=== PATIENT | female | born 1935 | race Caucasian/White ===

== ENCOUNTER 2018-01-13 15:56 | Inpatient (IN) | payer OTHER, MEDICARE ==
--- NOTE | 2018-01-13 16:05 | PDOC ---
History of Present Illness - General Stated Complaint: WEAKNESS DIZZINESS Time Seen by Provider: 01/13/18 15:58 - History of Present Illness Initial Comments: 01/13/18 16:28 The patient is an 82 year old female with a history of HTN, COPD, Lung CA who presents for evaluation of generalized weakness and fatigue. The patient was sent to the ED for evaluation from her PCP's office Dr. Parra. They report that the patient had a CT scan that demonstrated stable infiltrates 1 week ago and since that procedure, the patient has been complaining of generalized weakness and fatigue. She reports that she is normally able to ambulate without difficulty, but has required more assistance throughout the week due to worsening fatigue. She otherwise denies fevers, chills, SOB, chest pain, nausea , vomiting, abdominal pain, or changes with urination or bowel movements. Past History - Past Medical History Allergies/Adverse Reactions: Allergies Allergy/AdvReac Type Severity Reaction Status Date / Time No Known Drug Allergies Allergy Verified 01/13/18 16:13 SEASONAL Allergy Uncoded 01/13/18 16:13 Home Medications: Ambulatory Orders Aspirin [ASA -] 81 mg PO DAILY #0 tab.chew 07/18/13 Metoprolol Succinate [Toprol XL -] 12.5 mg PO BID #0 tab.sr.24h 07/18/13 Multivitamin [Multivitamins] 1 each PO DAILY #0 capsule 07/18/13 Loratadine/Pseudoephedrine Sul [Claritin-D 24 Hour Tablet] 1 tab PO DAILY Ranitidine HCl [Zantac] 150 mg PO BID #0 05/13/14 Alprazolam 0.5 mg PO DAILY PRN 01/13/18 Anemia: No Asthma: No Cancer: Yes (lung ca 2006) Cardiac Disorders: No CVA: No COPD: No CHF: No Dementia: No Diabetes: No GI Disorders: Yes Disorders: No HTN: Yes Hypercholesterolemia: No Liver Disease: Yes ("ENLARGED LIVER") Seizures: Yes (QUESTIONABLE X 1) Thyroid Disease: No - Surgical History Abdominal Surgery: No Appendectomy: No Cardiac Surgery: No Cholecystectomy: No Lung Surgery: Yes (LEFT LUNG X 2 08/16) Neurologic Surgery: No Orthopedic Surgery: No - Suicide/Smoking/Psychosocial Hx Smoking Status: Yes Smoking History: Former smoker Have you smoked in the past 12 months: No Number of Cigarettes Smoked Daily: 0 Hx Alcohol Use: No Drug/Substance Use Hx: No Substance Use Type: None Hx Substance Use Treatment: No Review of Systems - Review of Systems Comments:: 01/13/18 16:31 Constitutional: Fatigue, Generalized Weakness. No fevers, chills, HEENT: No Rhinorrhea, nasal congestion, visual changes Cardiovascular: Lightheadedness. No chest pain, syncope, palpitations Respiratory: No Cough, SOB, Hemoptysis, Gastrointestinal: No Abdominal pain, Nausea, Vomiting, Constipation, Diarrhea, Melena Genitourinary: No Dysuria, Frequency, Urgency, Hesitancy, Hematuria, Flank pain Musculoskeletal: No Myalgia, arthralgia Skin: No rashes, itching, bruising, pallor Neurologic: No Headache, Dizziness, Numbness, Weakness, or Tingling Psychiatric: No Hallucinations. No SI or HI *Physical Exam - Physical Exam Comments: 01/13/18 16:32 General Appearance: Nourished. No Apparent Distress HEENT: EOMI, KAREN. Dry mucus membranes. No Pharyngeal Erythema, Tonsillar Exudate, Tonsillar Erythema Neck: No Cervical Lymphadenopathy Respiratory/Chest: Lungs Clear, Normal Breath Sounds. No Crackles, Rales, Rhonchi, Wheezing Cardiovascular: Regular Rhythm, Regular Rate. 3/6 systolic murmur noted on exam. No Gallops, Rubs Gastrointestinal/Abdominal: Normal Bowel Sounds, Soft. No Guarding, Rebound, Tenderness Musculoskeletal: No CVA Tenderness Extremity: Normal Capillary Refill Integumentary: Pallor noted. Dry, Warm Neurologic: investment banking associate II-XII NML intact, Fully Oriented, Alert, Normal Mood/Affect, Normal Response, Heart Score/ECG Review #1 ECG reviewed & interpreted by me at: 16:49 (RBBB and Left anterior fascicular block) General ECG Interpretation: Sinus Rhythm, Normal Rate, Normal Intervals, No acute ischemic changes Compared to previous ECG there are: No significant change (05/10/14) ED Treatment Course - LABORATORY CBC & Chemistry Diagram: 01/13/18 16:30 01/13/18 16:30 Medical Decision Making - Medical Decision Making 01/13/18 16:33 The patient is an 82 year old female with a history of HTN, COPD, Lung CA who presents for evaluation of generalized weakness and fatigue. Differential includes but is not limited to: CRUZ, Anemia, Dehydration, infectious, metabolic derangement. Given the patient's history, we will obtain a cbc, cmp, troponin, ua, ekg to evaluate for possible etiologies. We discussed the case with Dr. Parra who was concerned about the patient's new onset weakness given that she is usually fairly active. Given her clinical appearance, she will likely require observation admission. We will continue to monitor and reassess. 01/13/18 18:26 cbc demonstrates an elevated wbc to 15.2. CMP demonstrates a sodium of 121, creatinine of 1.5, glucose of 238. Given the patient's lab work, it is possible the patient's symptoms are due to a CRUZ with hyponatremia and electrolyte imbalance. She will require admission for further management of her symptoms. 01/13/18 18:39 We discussed the case with the hospitalist team who accepted the patient for admission. *DC/Admit/Observation/Transfer Diagnosis at time of Disposition: CRUZ (acute kidney injury), Hyponatremia - Discharge Dispostion Condition at time of disposition: Stable Admit: Yes - Referrals Referrals: Bernabe Parra MD [Primary Care Provider] - - Patient Instructions - Post Discharge Activity
--- NOTE | 2018-01-13 16:33 | PDOC ---
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
[2018-01-13] MEDS ORDERED: SODIUM CHLORIDE 500 ML IV STA (16:51)
[2018-01-13 17:14] LABS: BASO % 0.2 % (0-2.0); EOS % 3.4 % (0-4.5); HEMATOCRIT 31.3 % (32.4-45.2); HEMOGLOBIN 11.3 GM/dL (10.7-15.3); LYMPH % 1.5 % (8-40); MCH 32.6 pg (25.7-33.7); MEAN CELL VOLUME 90.6 fl (80-96); MEAN PLT VOLUME 8.7 fl (7.5-11.1); MONO % 4.1 % (3.8-10.2); NEUT % 90.8 % (42.8-82.8); PLATELET COUNT 128 K/MM3 (134-434); RBC 3.45 M/mm3 (3.60-5.2); RDW 15.2 % (11.6-15.6); WHITE BLOOD COUNT 15.8 K/mm3 (4.0-10.0)
[2018-01-13 17:31] LABS: ALBUMIN 2.5 g/dl (3.4-5.0); ANION GAP 12 (8-16); BLOOD UREA NITROGEN 43 mg/dL (7-18); CALCIUM 7.8 mg/dL (8.5-10.1); CHLORIDE 85 mmol/L (98-107); CO2 24 mmol/L (21-32); GLUCOSE,RANDOM 278 mg/dL (74-106); POTASSIUM 4.2 mmol/L (3.5-5.1)
[2018-01-13 17:39] LABS: ALK PHOS 165 U/L (45-117); BILIRUBIN,TOTAL 0.8 mg/dL (0.2-1.0); CREATININE 1.5 mg/dL (0.55-1.02); SGOT/AST 29 U/L (15-37); SGPT/ALT 43 U/L (12-78); TOT PROT 5.6 g/dl (6.4-8.2)
[2018-01-13 18:03] LABS: SODIUM 121 mmol/L (136-145)
--- NOTE | 2018-01-13 22:06 | HP ---
Admitting History and Physical - Primary Care Physician PCP: Bernabe Parra - Admission Chief Complaint: Generalized Weakness, Fatigue History of Present Illness: This is a 82 y/o woman from home. Who presents to the ED from her PCP's office for generalized weakness, fatigue, chills, unable to ambulate x several days. Patient reports limited PO intake since having a CT of her chest. Patient states "I was told to drink lots of fluids after the test, but was unable" Patient denies fever, cough, SOB, CP, AP, N/V/D, dysuria. History Source: Patient, Medical Record Limitations to Obtaining History: No Limitations - Past Medical History Cardiovascular: Yes: CAD, HTN Pulmonary: Yes: Cancer (s/p resection), COPD Gastrointestinal: Yes: GERD - Past Surgical History Past Surgical History: Yes: Thoracotomy - Smoking History Smoking history: Former smoker Have you smoked in the past 12 months: No Aproximately how many cigarettes per day: 0 - Alcohol/Substance Use Hx Alcohol Use: No History of Substance Use: reports: None - Social History History of Recent Travel: No Home Medications - Allergies Allergies/Adverse Reactions: Allergies Allergy/AdvReac Type Severity Reaction Status Date / Time No Known Drug Allergies Allergy Verified 01/13/18 16:13 SEASONAL Allergy Uncoded 01/13/18 16:13 - Home Medications Home Medications: Ambulatory Orders Aspirin [ASA -] 81 mg PO DAILY #0 tab.chew 07/18/13 Metoprolol Succinate [Toprol XL -] 12.5 mg PO BID #0 tab.sr.24h 07/18/13 Multivitamin [Multivitamins] 1 each PO DAILY #0 capsule 07/18/13 Loratadine/Pseudoephedrine Sul [Claritin-D 24 Hour Tablet] 1 tab PO DAILY Ranitidine HCl [Zantac] 150 mg PO BID #0 05/13/14 Alprazolam 0.5 mg PO DAILY PRN 01/13/18 Family Disease History - Family Disease History Family History: Unable to Obtain Review of Systems - Review of Systems Constitutional: reports: Chills, Lethargy, Loss of Appetite, Malaise, Weakness Eyes: reports: No Symptoms HENT: reports: No Symptoms Neck: reports: No Symptoms Cardiovascular: reports: No Symptoms Respiratory: reports: No Symptoms Gastrointestinal: reports: No Symptoms Genitourinary: reports: No Symptoms Breasts: reports: No Symptoms Reported Musculoskeletal: reports: Muscle Weakness Integumentary: reports: No Symptoms Neurological: reports: Unsteady Gait, Weakness Endocrine: reports: No Symptoms Hematology/Lymphatic: reports: No Symptoms Psychiatric: reports: No Symptoms Physical Examination Vital Signs: Vital Signs Temperature 98.8 F 01/13/18 16:07 Pulse Rate 92 H 01/13/18 19:13 Respiratory Rate 21 01/13/18 19:13 Blood Pressure 120/46 01/13/18 19:13 O2 Sat by Pulse Oximetry (%) 94 L 01/13/18 19:13 Constitutional: Yes: No Distress, Calm Eyes: Yes: WNL, Conjunctiva Clear, EOM Intact, PERRL HENT: Yes: WNL, Atraumatic, Normocephalic, Other (Dry Mucous Membrane) Neck: Yes: WNL, Supple, Trachea Midline Cardiovascular: Yes: WNL, Regular Rate and Rhythm, Murmur (systolic) Respiratory: Yes: Diminished, On Nasal O2 Gastrointestinal: Yes: Normal Bowel Sounds, Soft ...Rectal Exam: Yes: Deferred Renal/: Yes: WNL Breast(s): Yes: WNL, Left, Right Musculoskeletal: Yes: WNL Extremities: Yes: WNL Edema: No Peripheral Pulses WNL: Yes Integumentary: Yes: Bruising (peripheral blood trays upper) Neurological: Yes: WNL, Alert, Oriented, Cran Nerves II-XII Intact ...Motor Strength: WNL Psychiatric: Yes: WNL, Alert, Oriented Labs: CBC, BMP 01/13/18 16:30 01/13/18 16:30 Laboratory Results - last 24 hr 01/13/18 01/13/18 01/13/18 16:30 16:30 22:15 WBC 15.8 H D RBC 3.45 L Hgb 11.3 Hct 31.3 L MCV 90.6 MCH 32.6 MCHC 36.0 RDW 15.2 Plt Count 128 L D MPV 8.7 Neutrophils % 90.8 H D Lymphocytes % 1.5 L D Monocytes % 4.1 Eosinophils % 3.4 Basophils % 0.2 Platelet Estimate Slt decrease Platelet Comment No clotting detected Sodium 121 L* 124 L* Potassium 4.2 3.8 Chloride 85 L 86 L Carbon Dioxide 24 25 Anion Gap 12 13 BUN 43 H 40 H Creatinine 1.5 H 1.4 H Creat Clearance w eGFR 33.41 Random Glucose 278 H 225 H Calcium 7.8 L 7.9 L Total Bilirubin 0.8 D AST 29 ALT 43 Alkaline Phosphatase 165 H Creatine Kinase 50 Troponin I < 0.02 Total Protein 5.6 L Albumin 2.5 L Intake & Output 01/11/18 01/12/18 01/13/18 01/14/18 23:59 23:59 23:59 23:59 Intake Total 336 Balance 336 Weight 72.603 kg Imaging - Results EKG: Pending Problem List - Problems (1) Hyponatremia Assessment/Plan: - hypovolemic/hypotonic hyponatremia - Likely secondary to severe dehydration vs SIADH - NS bolus given in ED - Na Deficit 279 - Sodium correction goal of 6-8meq/24hrs - IVF per PCP recommendation, consider change to D5W if Na increases to rapidly - Monitor BMP closely Q4H - UA-pending - Urine Osmo, Serum Osmo, Urine electrolytes - Fall Precautions Code(s): E87.1 - HYPO-OSMOLALITY AND HYPONATREMIA (2) CRUZ (acute kidney injury) Assessment/Plan: - Likely secondary to dehydration vs IV contrast media - Continue gentle IVF - Monitor BMP Code(s): N17.9 - ACUTE KIDNEY FAILURE, UNSPECIFIED (3) Generalized weakness Assessment/Plan: - Likely secondary to dehydration - Continue IVF - Monitor BMP - Monitor vitals - Fall Precautions Code(s): R53.1 - WEAKNESS (4) HTN (hypertension) Assessment/Plan: - Stable - Monitor BP - Continue home med with parameters Code(s): I10 - ESSENTIAL (PRIMARY) HYPERTENSION Qualifiers: Hypertension type: essential hypertension Qualified Code(s): I10 - Essential (primary) hypertension (5) Lung cancer Assessment/Plan: - s/p left lobe resection - Last CT without changes - Appreciate Oncology Consult Code(s): C34.90 - MALIGNANT NEOPLASM OF UNSP PART OF UNSP BRONCHUS OR LUNG Qualifiers: Laterality: right Lung location: upper lobe of lung Qualified Code(s): C34.11 - Malignant neoplasm of upper lobe, right bronchus or lung (6) CAD (coronary artery disease) Assessment/Plan: - Continue Asa, Metoprolol with parameters - EKG- pending Code(s): I25.10 - ATHSCL HEART DISEASE OF [place] CORONARY ARTERY W/O ANG PCTRS Qualifiers: Coronary Disease-Associated Artery/Lesion type: [place] artery [place] vs. transplanted heart: [place] heart Associated angina: without angina Qualified Code(s): I25.10 - Atherosclerotic heart disease of [place] coronary artery without angina pectoris (7) COPD (chronic obstructive pulmonary disease) Assessment/Plan: - Stable - Continue home med Code(s): J44.9 - CHRONIC OBSTRUCTIVE PULMONARY DISEASE, UNSPECIFIED Qualifiers: COPD type: unspecified COPD Qualified Code(s): J44.9 - Chronic obstructive pulmonary disease, unspecified (8) GERD (gastroesophageal reflux disease) Assessment/Plan: - Chronic - Continue Zantac Code(s): K21.9 - GASTRO-ESOPHAGEAL REFLUX DISEASE WITHOUT ESOPHAGITIS Qualifiers: Esophagitis presence: without esophagitis Qualified Code(s): K21.9 - Gastro -esophageal reflux disease without esophagitis (9) DVT prophylaxis Assessment/Plan: - OOB - SCDs - Heparin SQ Code(s): [id number] - Assessment/Plan This is a 82 y/o HTN, COPD, Lung Ca (no Chemo, RT). Admitted for Hyponatremia, Dehydration, Generalized Weakness. Plan: 1. Hyponatremia 2. Dehydration 3. Generalized Weakness 4. Leukocytosis 5. CRUZ 6. COPD 7. Lung Ca 8. Hypertension 9. CAD F/E/N - NS@42ml/hr - Repleting Na, monitor level - Low Na Diet Code Status: Full Code Dispo: Requires Inpatient Care Visit type - Emergency Visit Emergency Visit: Yes ED Registration Date: 01/13/18 Care time: The patient presented to the Emergency Department on the above date and was hospitalized for further evaluation of their emergent condition. - New Patient This patient is new to me today: Yes Date on this admission: 01/13/18 - Critical Care Critical Care patient: No Hospitalist Screening - Colonoscopy Questionnaire Colonoscopy Questionnaire: Colonoscopy Questionnaire - Patient: 50 - 75 years old and never had a screening colonoscopy: Unknown History of colon or rectal polyps, or CA: Unknown History of IBD, Crohn's disease or UC: Unknown History of abdominal radiation therapy as a child: Unknown - Relative: 1 with colon or rectal CA, or polyps at age 60 or younger: Unknown Colon or rectal CA diagnosed at age 45 or younger: Unknown Multiple relatives with colon or rectal CA: Unknown - Outcome: Screening Result: Negative Screen
[2018-01-13 22:09] LABS: PLATELET ESTIMATE SLT DECREASE
[2018-01-13] MEDS ORDERED: SODIUM CHLORIDE 1,000 ML IV SCH (22:15)
[2018-01-13] MEDS: HEPARIN NA (PORCINE) 5,000 UNITS/ML 1ML VIAL SQ SCH (22:55)
[2018-01-13 23:03] LABS: ANION GAP 13 (8-16); BLOOD UREA NITROGEN 40 mg/dL (7-18); CALCIUM 7.9 mg/dL (8.5-10.1); CHLORIDE 86 mmol/L (98-107); CO2 25 mmol/L (21-32); CREATININE 1.4 mg/dL (0.55-1.02); GLUCOSE,RANDOM 225 mg/dL (74-106); POTASSIUM 3.8 mmol/L (3.5-5.1)
[2018-01-13 23:10] VITALS: BMI 27.4
[2018-01-13 23:10] LABS: SODIUM 124 mmol/L (136-145)
[2018-01-14 08:11] LABS: HEMATOCRIT 28.5 % (32.4-45.2); HEMOGLOBIN 10.1 GM/dL (10.7-15.3); MCH 32.1 pg (25.7-33.7); MCHC 35.3 g/dl (32.0-36.0); MEAN PLT VOLUME 8.6 fl (7.5-11.1); PLATELET COUNT 114 K/MM3 (134-434); RBC 3.14 M/mm3 (3.60-5.2); RDW 15.4 % (11.6-15.6); WHITE BLOOD COUNT 14.6 K/mm3 (4.0-10.0)
[2018-01-14 08:29] LABS: ANION GAP 16 (8-16); BLOOD UREA NITROGEN 41 mg/dL (7-18); CALCIUM 7.5 mg/dL (8.5-10.1); CHLORIDE 88 mmol/L (98-107); CO2 21 mmol/L (21-32); CREATININE 1.3 mg/dL (0.55-1.02); GLUCOSE,RANDOM 219 mg/dL (74-106); PHOSPHOROUS 1.8 mg/dL (2.5-4.9); SODIUM 125 mmol/L (136-145)
[2018-01-14 08:32] LABS: MAGNESIUM 2.8 mg/dL (1.8-2.4); POTASSIUM 3.6 mmol/L (3.5-5.1)
[2018-01-14 08:43] LABS: URINE APPEARANCE TURBID; URINE BILIRUBIN NEGATIVE (NEGATIVE); URINE BLOOD 1+ (NEGATIVE); URINE COLOR YELLOW; URINE GLUCOSE (UA) NEGATIVE (NEGATIVE); URINE KETONE TRACE (NEGATIVE); URINE NITRITE NEGATIVE (NEGATIVE); URINE UROBILINOGEN NEGATIVE mg/dL (0.2-1.0)
[2018-01-14 08:55] LABS: URINE LEUK ESTERASE 3+ (NEGATIVE); URINE PROTEIN 2+ (NEGATIVE)
[2018-01-14 08:56] LABS: URINE BACTERIA MANY /hpf (NONE SEEN)
[2018-01-14 09:47] LABS: PLATELET ESTIMATE DECREASED; TOXIC GRANULATION 3+
--- NOTE | 2018-01-14 09:58 | PN ---
Progress Note, Physician Chief Complaint: Pt lying in bed in no acute distress. Reports she is feeling a lot better since coming in. still feels weak. Denies any chest discomfort, sob, n/v/d, or fever/ chills - Current Medication List Current Medications: Active Medications Aspirin (Asa -) 81 mg PO DAILY [facility] Heparin Sodium (Porcine) (Heparin -) 5,000 unit SQ BID [facility] Last Admin: 01/13/18 22:55 Dose: 5,000 unit Ceftriaxone Sodium 1 gm/ (Dextrose) 50 mls @ 100 mls/hr IVPB DAILY [facility] Sodium Chloride (Normal Saline -) 1,000 mls @ 100 mls/hr IV ASDIR [facility] Non-Formulary Medication (Ranitidine Hcl [Zantac]) 150 mg PO BID [facility] - Objective Vital Signs: Vital Signs Temperature 97.9 F 01/14/18 08:00 Pulse Rate 99 H 01/14/18 08:00 Respiratory Rate 18 01/14/18 08:00 Blood Pressure 121/60 01/14/18 08:00 O2 Sat by Pulse Oximetry (%) 96 01/14/18 09:00 Constitutional: Yes: Well Nourished, No Distress Cardiovascular: Yes: WNL, Regular Rate and Rhythm, Murmur. No: Bruit, Gallop, Rub Respiratory: Yes: WNL, Regular, CTA Bilaterally. No: Rales, Rhonchi, SOB Gastrointestinal: Yes: WNL, Normal Bowel Sounds, Soft. No: Distention, Tenderness Genitourinary: Yes: WNL Extremities: Yes: WNL Edema: No Neurological: Yes: WNL, Alert, Oriented Psychiatric: Yes: WNL, Alert, Oriented Labs: CBC, BMP 01/14/18 06:45 01/14/18 06:45 - ....Imaging EKG: Report Reviewed Problem List - Problems (1) Hyponatremia Assessment/Plan: hypovolemic/hypotonic hyponatremia slightly improved with ivf urine na/cl low secondary to intravasc volume depletion NS increased to 100mL/hr chest xray reviewed, no sig congestive findings will monitor bmp closely Nephrology consulter per onc Code(s): E87.1 - HYPO-OSMOLALITY AND HYPONATREMIA (2) UTI (urinary tract infection) Assessment/Plan: UA+, +leukocytosis UC pending ceftriaxone started, day 1 will monitor Code(s): N39.0 - URINARY TRACT INFECTION, SITE NOT SPECIFIED Qualifiers: Hematuria presence: without hematuria (3) Leukocytosis Assessment/Plan: secondary to UTI as above Code(s): D72.829 - ELEVATED WHITE BLOOD CELL COUNT, UNSPECIFIED Qualifiers: Leukocytosis type: unspecified Qualified Code(s): D72.829 - Elevated white blood cell count, unspecified (4) CRUZ (acute kidney injury) Assessment/Plan: secondary to prerenal improving with ivf will monitor Code(s): N17.9 - ACUTE KIDNEY FAILURE, UNSPECIFIED (5) Generalized weakness Assessment/Plan: improving, secondary to underlying condition treat and monitor for improvement PT Code(s): R53.1 - WEAKNESS (6) HTN (hypertension) Assessment/Plan: controlled allow permissive htn in the setting of hypovolemia metoprolol per parameters Code(s): I10 - ESSENTIAL (PRIMARY) HYPERTENSION Qualifiers: Hypertension type: essential hypertension Qualified Code(s): I10 - Essential (primary) hypertension (7) Lung cancer Assessment/Plan: s/p left lobe resection last CT without changes followed by outpt Onc consult appreciated Code(s): C34.90 - MALIGNANT NEOPLASM OF UNSP PART OF UNSP BRONCHUS OR LUNG Qualifiers: Laterality: right Lung location: upper lobe of lung Qualified Code(s): C34.11 - Malignant neoplasm of upper lobe, right bronchus or lung (8) DVT prophylaxis Assessment/Plan: Heparin SQ SCDs Code(s): [id number] - (9) CAD (coronary artery disease) Assessment/Plan: stable ekg continue aspirin, metoprolol followed by as outpatient Code(s): I25.10 - ATHSCL HEART DISEASE OF [place] CORONARY ARTERY W/O ANG PCTRS Qualifiers: Coronary Disease-Associated Artery/Lesion type: [place] artery [place] vs. transplanted heart: [place] heart Associated angina: without angina Qualified Code(s): I25.10 - Atherosclerotic heart disease of [place] coronary artery without angina pectoris (10) GERD (gastroesophageal reflux disease) Assessment/Plan: chronic continue zantac Code(s): K21.9 - GASTRO-ESOPHAGEAL REFLUX DISEASE WITHOUT ESOPHAGITIS Qualifiers: Esophagitis presence: without esophagitis Qualified Code(s): K21.9 - Gastro -esophageal reflux disease without esophagitis (11) COPD (chronic obstructive pulmonary disease) Assessment/Plan: stable Code(s): J44.9 - CHRONIC OBSTRUCTIVE PULMONARY DISEASE, UNSPECIFIED Qualifiers: COPD type: unspecified COPD Qualified Code(s): J44.9 - Chronic obstructive pulmonary disease, unspecified (12) History of alcohol abuse Assessment/Plan: stable Code(s): Z87.898 - PERSONAL HISTORY OF OTHER SPECIFIED CONDITIONS (13) Hypokalemia Assessment/Plan: k3.2 potassium 10meq ivx 3 runs monitor bmp Code(s): E87.6 - HYPOKALEMIA
[2018-01-14] MEDS: HEPARIN NA (PORCINE) 5,000 UNITS/ML 1ML VIAL SQ SCH ×2 (09:59→21:11)
[2018-01-14] MEDS ORDERED: SODIUM CHLORIDE 1,000 ML IV SCH ×2 (10:00→11:52)
[2018-01-14] MEDS ORDERED: CEFTRIAXONE 1 G/50 ML PREMIX 50 ML IVPB SCH (10:00)
[2018-01-14] MEDS ORDERED: PATIENT'S OWN MEDICATION (NON-FORMULARY) (Ranitidine Hcl [Zantac] 150 MG) PO SCH (10:00)
[2018-01-14] MEDS: ASPIRIN 81 MG CHEWABLE TABLETS PO SCH (10:19)
[2018-01-14] MEDS: RANITIDINE HCL 150 MG TABLET (FP) PO SCH ×2 (10:26→21:11)
--- NOTE | 2018-01-14 10:51 | EKG ---
Test Reason : Blood Pressure : / mmHG Vent. Rate : 096 BPM Atrial Rate : 096 BPM P-R Int : 164 ms QRS Dur : 132 ms QT Int : 364 ms P-R-T Axes : 048 -57 022 degrees QTc Int : 459 ms NORMAL SINUS RHYTHM RIGHT BUNDLE BRANCH BLOCK LEFT ANTERIOR FASCICULAR BLOCK BIFASCICULAR BLOCK SEPTAL INFARCT , AGE UNDETERMINED ABNORMAL ECG WHEN COMPARED WITH ECG OF 10-MAY-2014 09:25, SEPTAL INFARCT IS NOW PRESENT Confirmed by GREGORY HENDERSON, CHINYERE ([id number]) on 01/14/2018 10:50:33 AM Referred By: Confirmed By:CHINYERE JENKINS MD
[2018-01-14 11:08] LABS: ANION GAP 13 (8-16); BLOOD UREA NITROGEN 43 mg/dL (7-18); CALCIUM 7.5 mg/dL (8.5-10.1); CHLORIDE 91 mmol/L (98-107); CO2 21 mmol/L (21-32); CREATININE 1.3 mg/dL (0.55-1.02); GLUCOSE,RANDOM 204 mg/dL (74-106); SODIUM 125 mmol/L (136-145)
[2018-01-14 11:19] LABS: POTASSIUM 3.9 mmol/L (3.5-5.1)
--- NOTE | 2018-01-14 11:37 | PN ---
Progress Note (short form) - Note Progress Note: Oncology Note: office notes reviewed, follows-up with for lung cancer, and being monitored with imaging plan was to repeat CT chest. 82 year old female with a history of HTN, COPD, Lung CA who presents for evaluation of generalized weakness and fatigue. The patient was sent to the ED for evaluation from her PCP's office Dr. Parra. They report that the patient had a CT scan that demonstrated stable infiltrates 1 week ago and since that procedure, the patient has been complaining of generalized weakness and fatigue. She reports that she is normally able to ambulate without difficulty, but has required more assistance throughout the week due to worsening fatigue. She otherwise denies fevers, chills, SOB, chest pain, nausea, vomiting, abdominal pain, or changes with urination or bowel movements. Pt seen , chart reviewed. O/E: General : NAD, appears fatigues HEENT: NCAT Cor: +Murmur Lungs: Anterior auscultation clear Abd: soft NT ND Extremities: No CCE. Last Vital Signs Temp Pulse Resp BP Pulse Ox 97.9 F 99 H 18 121/60 96 01/14/18 08:00 01/14/18 08:00 01/14/18 08:00 01/14/18 08:00 01/14/18 09:00 CBC, BMP 01/14/18 06:45 01/14/18 10:15 Current Medications Generic Name Dose Route Start Last Admin Trade Name Freq PRN Reason Stop Dose Admin Aspirin 81 mg 01/14/18 10:00 01/14/18 10:19 Asa - PO 81 mg DAILY [facility] Administration Heparin Sodium (Porcine) 5,000 unit 01/13/18 22:00 01/14/18 09:59 Heparin - SQ 5,000 unit BID [facility]ENDA Administration CEFTRIAXONE 1 G/50 ML PREMIX 50 mls @ 100 mls/hr 01/14/18 10:00 01/14/18 10: 19 Ceftriaxone 1 Gm-D5w Bag IVPB 100 mls/hr DAILY [facility] Administration Sodium Chloride 1,000 mls @ 100 mls/hr 01/14/18 10:00 01/14/18 10:20 Normal Saline - IV Not Given ASDIR [facility] Metoprolol Succinate 12.5 mg 01/14/18 22:00 Toprol Xl - PO BID [facility] Non-Formulary Medication 1 each 01/15/18 10:00 Multivitamin [Multivitamins] PO DAILY [facility] Ranitidine HCl 150 mg 01/14/18 10:45 01/14/18 10:26 Zantac - PO 150 mg BID [facility]ENDA Administration Lung Ca: stable HypoNa/CRUZ: renal consult. Anemia/Mild thrombocytopenia continue to monitor .
--- NOTE | 2018-01-14 12:32 | CON.CARD ---
Consult Consult Specialty:: Cardiology Referred by:: Galen Parra MD Reason for Consultation:: CAD - History of Present Illness Chief Complaint: Failre to thrive History of Present Illness: This is a 82 y/o woman h/o right lung adenocarcinoma, COPD, CAD, HTN who presents to the ED from her PCP's office for generalized weakness, fatigue, chills, unable to ambulate x several days. Patient reports limited PO intake since having a CT of her chest. She denies chest pain, dyspnea, near or true syncope, palpitations, orthopnea, PND or LE edema. Feels improved with IVF and abx. - History Source History Provided By: Patient Limitations to Obtaining History: No Limitations - Past Medical History Cardio/Vascular: Yes: CAD, HTN Pulmonary: Yes: Cancer (s/p resection), COPD Gastrointestinal: Yes: GERD - Past Surgical History Past Surgical History: Yes: Thoracotomy - Alcohol/Substance Use Hx Alcohol Use: No History of Substance Use: reports: None - Smoking History Smoking history: Former smoker Have you smoked in the past 12 months: No Aproximately how many cigarettes per day: 0 - Social History History of Recent Travel: No Home Medications - Allergies Allergies/Adverse Reactions: Allergies Allergy/AdvReac Type Severity Reaction Status Date / Time No Known Drug Allergies Allergy Verified 01/13/18 16:13 SEASONAL Allergy Uncoded 01/13/18 16:13 - Home Medications Home Medications: Ambulatory Orders Aspirin [ASA -] 81 mg PO DAILY #0 tab.chew 07/18/13 Metoprolol Succinate [Toprol XL -] 12.5 mg PO BID #0 tab.sr.24h 07/18/13 Multivitamin [Multivitamins] 1 each PO DAILY #0 capsule 07/18/13 Loratadine/Pseudoephedrine Sul [Claritin-D 24 Hour Tablet] 1 tab PO DAILY Ranitidine HCl [Zantac] 150 mg PO BID #0 05/13/14 Alprazolam 0.5 mg PO DAILY PRN 01/13/18 Review of Systems - Review of Systems Constitutional: reports: Lethargy, Loss of Appetite Vital Signs: Vital Signs Temperature 97.9 F 01/14/18 08:00 Pulse Rate 99 H 01/14/18 08:00 Respiratory Rate 18 01/14/18 08:00 Blood Pressure 121/60 01/14/18 08:00 O2 Sat by Pulse Oximetry (%) 96 01/14/18 09:00 Constitutional: Yes: No Distress, Calm Neck: Yes: Supple Respiratory: Yes: Regular, Diminished, On Nasal O2 Gastrointestinal: Yes: Normal Bowel Sounds, Soft Cardiovascular: Yes: Regular Rate and Rhythm JVD: No Carotid Bruit: No Heart Sounds: Yes: S1, S2 Murmur: Yes: Systolic Murmur, Grade 1 Edema: No - Other Data Labs, Other Data: CBC, BMP 01/14/18 06:45 01/14/18 10:15 Troponin, BNP 01/13/18 16:30 Troponin I < 0.02 Troponin, BNP 01/13/18 16:30 Troponin I < 0.02 NSR @ 96 RBBB Ejection Fraction %: LVEF > or = 40 % Problem List - Problems (1) CRUZ (acute kidney injury) Code(s): N17.9 - ACUTE KIDNEY FAILURE, UNSPECIFIED (2) CAD (coronary artery disease) Code(s): I25.10 - ATHSCL HEART DISEASE OF [place] CORONARY ARTERY W/O ANG PCTRS Qualifiers: Coronary Disease-Associated Artery/Lesion type: [place] artery [place] vs. transplanted heart: [place] heart Associated angina: without angina Qualified Code(s): I25.10 - Atherosclerotic heart disease of [place] coronary artery without angina pectoris (3) COPD (chronic obstructive pulmonary disease) Code(s): J44.9 - CHRONIC OBSTRUCTIVE PULMONARY DISEASE, UNSPECIFIED Qualifiers: COPD type: unspecified COPD Qualified Code(s): J44.9 - Chronic obstructive pulmonary disease, unspecified (4) DVT prophylaxis Code(s): [id number] - (5) GERD (gastroesophageal reflux disease) Code(s): K21.9 - GASTRO-ESOPHAGEAL REFLUX DISEASE WITHOUT ESOPHAGITIS Qualifiers: Esophagitis presence: without esophagitis Qualified Code(s): K21.9 - Gastro -esophageal reflux disease without esophagitis (6) Generalized weakness Code(s): R53.1 - WEAKNESS (7) HTN (hypertension) Code(s): I10 - ESSENTIAL (PRIMARY) HYPERTENSION Qualifiers: Hypertension type: essential hypertension Qualified Code(s): I10 - Essential (primary) hypertension (8) Hyponatremia Code(s): E87.1 - HYPO-OSMOLALITY AND HYPONATREMIA (9) Leukocytosis Code(s): D72.829 - ELEVATED WHITE BLOOD CELL COUNT, UNSPECIFIED Qualifiers: Leukocytosis type: unspecified Qualified Code(s): D72.829 - Elevated white blood cell count, unspecified (10) Lung cancer Code(s): C34.90 - MALIGNANT NEOPLASM OF UNSP PART OF UNSP BRONCHUS OR LUNG Qualifiers: Laterality: right Lung location: upper lobe of lung Qualified Code(s): C34.11 - Malignant neoplasm of upper lobe, right bronchus or lung (11) UTI (urinary tract infection) Code(s): N39.0 - URINARY TRACT INFECTION, SITE NOT SPECIFIED Qualifiers: Hematuria presence: without hematuria Assessment/Plan 1. Lethargy referable to hyponatremia and acute on CKD 2. UTI 3. Right lung adenocarcinoma s/p resection 4. COPD 5. CAD angina pectoris 6. Systolic murmur consistent with MR disease 7. HTN 8. Thrombocytopenia Plan: 1. Continue Toprol XL 12.5 bid, ASA 81 qd 2. IVF, empiric abx, monitor Na and renal recovery 3. F/u with Dr. Owens and Candelario as outpatient 4. DVT and GI prophylaxis, will obtain outpatient records tomorrow 5. Thank you for consultative opportunity
--- NOTE | 2018-01-14 14:32 | CONSULT ---
Consult Consult Specialty:: Nephrology Reason for Consultation:: hyponatremia - History of Present Illness Chief Complaint: weakness and fatigue History of Present Illness: Pt is an 82 year old female with pmhx of HTN, lung cancer, COPD, HTN and CAD who presents to the ER with weakness and fatigue. She says that she has been so weak that she can not walk. She was found to be hyponatremic and I was called to evaluate her. She says that she has not been eating at all and has only been drinking water. She responded to saline and showed an improvement in her sodium. She is awake and says that she feels she can try to eat today. She denies shortness of breath. She denies lower ext edema. She denies nsaid use. She denies history of CKD. - History Source History Provided By: Patient - Past Medical History Cardio/Vascular: Yes: CAD, HTN Pulmonary: Yes: Cancer (s/p resection), COPD Gastrointestinal: Yes: GERD Heme/Onc: Yes: Other (lung cancer) - Past Surgical History Past Surgical History: Yes: Thoracotomy - Alcohol/Substance Use Hx Alcohol Use: No History of Substance Use: reports: None - Smoking History Smoking history: Former smoker Have you smoked in the past 12 months: No Aproximately how many cigarettes per day: 0 - Social History History of Recent Travel: No Home Medications - Allergies Allergies/Adverse Reactions: Allergies Allergy/AdvReac Type Severity Reaction Status Date / Time No Known Drug Allergies Allergy Verified 01/13/18 16:13 SEASONAL Allergy Uncoded 01/13/18 16:13 - Home Medications Home Medications: Ambulatory Orders Aspirin [ASA -] 81 mg PO DAILY #0 tab.chew 07/18/13 Metoprolol Succinate [Toprol XL -] 12.5 mg PO BID #0 tab.sr.24h 07/18/13 Multivitamin [Multivitamins] 1 each PO DAILY #0 capsule 07/18/13 Loratadine/Pseudoephedrine Sul [Claritin-D 24 Hour Tablet] 1 tab PO DAILY Ranitidine HCl [Zantac] 150 mg PO BID #0 05/13/14 Alprazolam 0.5 mg PO DAILY PRN 01/13/18 Family Disease History - Family Disease History Family History: Denies Review of Systems - Review of Systems Constitutional: reports: Loss of Appetite, Malaise. denies: Chills, Fever Eyes: reports: No Symptoms HENT: reports: No Symptoms Neck: reports: No Symptoms Cardiovascular: reports: No Symptoms Respiratory: reports: No Symptoms Gastrointestinal: reports: No Symptoms Genitourinary: reports: No Symptoms Musculoskeletal: reports: Muscle Weakness Neurological: reports: No Symptoms Endocrine: reports: No Symptoms Hematology/Lymphatic: reports: No Symptoms Psychiatric: reports: No Symptoms Physical Exam Vital Signs: Vital Signs Temperature 99.2 F 01/14/18 13:47 Pulse Rate 97 H 01/14/18 13:47 Respiratory Rate 18 01/14/18 08:00 Blood Pressure 149/71 01/14/18 13:47 O2 Sat by Pulse Oximetry (%) 96 01/14/18 09:00 Constitutional: Yes: Calm Eyes: Yes: Conjunctiva Clear HENT: Yes: Atraumatic Neck: Yes: Supple Cardiovascular: Yes: S1, S2 Respiratory: Yes: On Nasal O2 Gastrointestinal: Yes: Soft Renal/: Yes: WNL Musculoskeletal: Yes: WNL Edema: No Integumentary: Yes: WNL Neurological: Yes: Oriented Psychiatric: Yes: Oriented Labs: CBC, BMP 01/14/18 06:45 01/14/18 10:15 Laboratory Tests 01/13/18 01/13/18 01/13/18 16:30 16:30 22:15 WBC 15.8 H D Hgb 11.3 Plt Count 128 L D Sodium 121 L* 124 L* Creatinine 1.5 H 1.4 H Serum Osmolality Urine Osmolality Ur Random Sodium 01/14/18 01/14/18 01/14/18 06:02 06:45 06:45 WBC 14.6 H Hgb 10.1 L D Plt Count 114 L Sodium 125 L Creatinine 1.3 H Serum Osmolality Pending Urine Osmolality Pending Ur Random Sodium 21 01/14/18 10:15 WBC Hgb Plt Count Sodium 125 L Creatinine 1.3 H Serum Osmolality Urine Osmolality Ur Random Sodium Imaging - Results Chest X-ray: Report Reviewed Problem List - Problems (1) CRUZ (acute kidney injury) Code(s): N17.9 - ACUTE KIDNEY FAILURE, UNSPECIFIED (2) CAD (coronary artery disease) Code(s): I25.10 - ATHSCL HEART DISEASE OF [place] CORONARY ARTERY W/O ANG PCTRS Qualifiers: Coronary Disease-Associated Artery/Lesion type: [place] artery [place] vs. transplanted heart: [place] heart Associated angina: without angina Qualified Code(s): I25.10 - Atherosclerotic heart disease of [place] coronary artery without angina pectoris (3) COPD (chronic obstructive pulmonary disease) Code(s): J44.9 - CHRONIC OBSTRUCTIVE PULMONARY DISEASE, UNSPECIFIED Qualifiers: COPD type: unspecified COPD Qualified Code(s): J44.9 - Chronic obstructive pulmonary disease, unspecified (4) Generalized weakness Code(s): R53.1 - WEAKNESS (5) HTN (hypertension) Code(s): I10 - ESSENTIAL (PRIMARY) HYPERTENSION Qualifiers: Hypertension type: essential hypertension Qualified Code(s): I10 - Essential (primary) hypertension (6) Hyponatremia Code(s): E87.1 - HYPO-OSMOLALITY AND HYPONATREMIA (7) Lung cancer Code(s): C34.90 - MALIGNANT NEOPLASM OF UNSP PART OF UNSP BRONCHUS OR LUNG Qualifiers: Laterality: right Lung location: upper lobe of lung Qualified Code(s): C34.11 - Malignant neoplasm of upper lobe, right bronchus or lung Assessment/Plan Current Medications Generic Name Dose Route Start Last Admin Trade Name Freq PRN Reason Stop Dose Admin Aspirin 81 mg 01/14/18 10:00 01/14/18 10:19 Asa - PO 81 mg DAILY BRENDA Administration Heparin Sodium (Porcine) 5,000 unit 01/13/18 22:00 01/14/18 09:59 Heparin - SQ 5,000 unit BID BRENDA Administration CEFTRIAXONE 1 G/50 ML PREMIX 50 mls @ 100 mls/hr 01/14/18 10:00 01/14/18 10: 19 Ceftriaxone 1 Gm-D5w Bag IVPB 100 mls/hr DAILY BRENDA Administration Sodium Chloride 1,000 mls @ 150 mls/hr 01/14/18 11:52 Normal Saline - IV ASDIR BRENDA Metoprolol Succinate 12.5 mg 01/14/18 22:00 Toprol Xl - PO BID BRENDA Multivitamins/Minerals/Vitamin C 1 tab 01/15/18 10:00 Tab-A-Vit - PO DAILY BRENDA Ranitidine HCl 150 mg 01/14/18 10:45 01/14/18 10:26 Zantac - PO 150 mg BID BRENDA Administration Impression 1. Hyponatremia 2. dehydration 3. RCUZ 4. HTN 5. COPD 6. lung cancer 7. gerd 8. UTI Plan - sodium is improving with saline - likely etiology of hyponatremia is dehydration and CRUZ in the setting of decreased PO intake with only drinking water - check plasma and urine osm - urine sodium is low which is consistent with prerenal disease and speaks against siadh - check tsh and cortisol - decrease rate of fluids - monitor serum sodium - discussed plan with medical team - encourage PO intake - follow urine cultures - pt remains at risk to fall with sodium of 125 - check renal ultrasound - will follow pt
[2018-01-14 15:10] LABS: ANION GAP 13 (8-16); BLOOD UREA NITROGEN 43 mg/dL (7-18); CALCIUM 7.3 mg/dL (8.5-10.1); CHLORIDE 92 mmol/L (98-107); CO2 21 mmol/L (21-32); CREATININE 1.3 mg/dL (0.55-1.02); GLUCOSE,RANDOM 184 mg/dL (74-106); POTASSIUM 3.2 mmol/L (3.5-5.1); SODIUM 126 mmol/L (136-145)
[2018-01-14] MEDS ORDERED: KCL 10 MEQ IVPB 10 MEQ/100 ML INFUS.BAG IVPB SCH (15:15)
[2018-01-14] MEDS: SODIUM CHLORIDE 1,000 ML IV SCH ×2 (15:30→17:07)
[2018-01-14 15:58] LABS: OSMOLALITY,SERUM 270 mosm/kg (278-305)
[2018-01-14 16:00] LABS: OSMOLALITY,URINE 292 mosm/kg (300-900)
[2018-01-14] MEDS: POTASSIUM CHLORIDE 10 MEQ in SODIUM CHLORIDE 100 ML IVPB SCH ×5 (17:05→22:15)
[2018-01-14] MEDS ORDERED: PT OWN MED DRAWER 7, Y5N ONE (18:59)
[2018-01-14] MEDS: metoPROLOL SUCCINATE 25 MG TAB.SR.24H (FP) PO SCH (21:11)
[2018-01-15] MEDS: SODIUM CHLORIDE 1,000 ML IV SCH ×3 (02:53→15:50)
[2018-01-15 07:43] LABS: HEMATOCRIT 27.5 % (32.4-45.2); HEMOGLOBIN 9.7 GM/dL (10.7-15.3); MCH 32.3 pg (25.7-33.7); MCHC 35.1 g/dl (32.0-36.0); MEAN PLT VOLUME 7.5 fl (7.5-11.1); PLATELET COUNT 124 K/MM3 (134-434); RBC 2.99 M/mm3 (3.60-5.2); RDW 15.7 % (11.6-15.6); WHITE BLOOD COUNT 13.8 K/mm3 (4.0-10.0)
[2018-01-15 08:36] LABS: ANION GAP 13 (8-16); BLOOD UREA NITROGEN 36 mg/dL (7-18); CHLORIDE 98 mmol/L (98-107); CO2 20 mmol/L (21-32); GLUCOSE,RANDOM 190 mg/dL (74-106); MAGNESIUM 2.6 mg/dL (1.8-2.4); PHOSPHOROUS 1.5 mg/dL (2.5-4.9); POTASSIUM 3.3 mmol/L (3.5-5.1); SODIUM 131 mmol/L (136-145)
[2018-01-15 08:46] LABS: CREATININE 1.2 mg/dL (0.55-1.02)
[2018-01-15 09:37] LABS: PLATELET ESTIMATE DECREASED
[2018-01-15] MEDS: RANITIDINE HCL 150 MG TABLET (FP) PO SCH ×2 (09:42→21:56)
[2018-01-15] MEDS: HEPARIN NA (PORCINE) 5,000 UNITS/ML 1ML VIAL SQ SCH ×2 (09:42→21:56)
[2018-01-15] MEDS: metoPROLOL SUCCINATE 25 MG TAB.SR.24H (FP) PO SCH ×2 (09:42→21:56)
[2018-01-15] MEDS: ASPIRIN 81 MG CHEWABLE TABLETS PO SCH (09:42)
[2018-01-15] MEDS: MULTIVITAMINS (DAILY MVI) TABLET (FP) PO SCH (09:42)
[2018-01-15] MEDS ORDERED: CEFTRIAXONE 1 G/50 ML PREMIX 50 ML IVPB SCH (10:00)
[2018-01-15] MEDS: CEFTRIAXONE 1 GM in SODIUM CHLORIDE 50 ML IVPB SCH (10:48)
--- NOTE | 2018-01-15 11:29 | PN ---
Progress Note, Physician History of Present Illness: Resting comfortably. Feels improved with IVF and abx. - Current Medication List Current Medications: Active Medications Aspirin (Asa -) 81 mg PO DAILY [facility] Last Admin: 01/15/18 09:42 Dose: 81 mg Heparin Sodium (Porcine) (Heparin -) 5,000 unit SQ BID [facility] Last Admin: 01/15/18 09:42 Dose: 5,000 unit Ceftriaxone Sodium 1 gm/ (Sodium Chloride) 50 mls @ 100 mls/hr IVPB DAILY [facility] Last Admin: 01/15/18 10:48 Dose: 100 mls/hr Potassium Chloride 10 meq/ (Sodium Chloride) 105 mls @ 105 mls/hr IVPB Q60M [facility] Stop: 01/15/18 13:14 Sodium Chloride (Normal Saline -) 1,000 mls @ 42 mls/hr IV ASDIR [facility] Lactobacillus Acidophilus (Bacid -) 1 tab PO DAILY [facility] Metoprolol Succinate (Toprol Xl -) 12.5 mg PO BID [facility] Last Admin: 01/15/18 09:42 Dose: 12.5 mg Multivitamins/Minerals/Vitamin C (Tab-A-Vit -) 1 tab PO DAILY [facility] Last Admin: 01/15/18 09:42 Dose: 1 tab Potassium Phos/Sodium Phos (Phos-Nak Packet -) 1 packet PO TID [facility] Stop: 01/16/18 13:59 Ranitidine HCl (Zantac -) 150 mg PO BID [facility] Last Admin: 01/15/18 09:42 Dose: 150 mg - Objective Vital Signs: Vital Signs Temperature 98.7 F 01/15/18 08:00 Pulse Rate 88 01/15/18 08:00 Respiratory Rate 18 01/15/18 08:00 Blood Pressure 135/64 01/15/18 08:00 O2 Sat by Pulse Oximetry (%) 94 L 01/15/18 08:45 Constitutional: Yes: No Distress, Calm Neck: Yes: Supple Cardiovascular: Yes: Regular Rate and Rhythm, Murmur (2/6 SM) Respiratory: Yes: Regular, Diminished Gastrointestinal: Yes: Normal Bowel Sounds, Soft Edema: No Labs: CBC, BMP 01/15/18 06:30 01/15/18 06:30 - ....Imaging Ultrasound: Report Reviewed (No hydronephrosis) Problem List - Problems (1) CRUZ (acute kidney injury) Code(s): N17.9 - ACUTE KIDNEY FAILURE, UNSPECIFIED (2) CAD (coronary artery disease) Code(s): I25.10 - ATHSCL HEART DISEASE OF [place] CORONARY ARTERY W/O ANG PCTRS Qualifiers: Coronary Disease-Associated Artery/Lesion type: [place] artery [place] vs. transplanted heart: [place] heart Associated angina: without angina Qualified Code(s): I25.10 - Atherosclerotic heart disease of [place] coronary artery without angina pectoris (3) COPD (chronic obstructive pulmonary disease) Code(s): J44.9 - CHRONIC OBSTRUCTIVE PULMONARY DISEASE, UNSPECIFIED Qualifiers: COPD type: unspecified COPD Qualified Code(s): J44.9 - Chronic obstructive pulmonary disease, unspecified (4) DVT prophylaxis Code(s): [id number] - (5) GERD (gastroesophageal reflux disease) Code(s): K21.9 - GASTRO-ESOPHAGEAL REFLUX DISEASE WITHOUT ESOPHAGITIS Qualifiers: Esophagitis presence: without esophagitis Qualified Code(s): K21.9 - Gastro -esophageal reflux disease without esophagitis (6) Generalized weakness Code(s): R53.1 - WEAKNESS (7) HTN (hypertension) Code(s): I10 - ESSENTIAL (PRIMARY) HYPERTENSION Qualifiers: Hypertension type: essential hypertension Qualified Code(s): I10 - Essential (primary) hypertension (8) Hyponatremia Code(s): E87.1 - HYPO-OSMOLALITY AND HYPONATREMIA (9) Leukocytosis Code(s): D72.829 - ELEVATED WHITE BLOOD CELL COUNT, UNSPECIFIED Qualifiers: Leukocytosis type: unspecified Qualified Code(s): D72.829 - Elevated white blood cell count, unspecified (10) Lung cancer Code(s): C34.90 - MALIGNANT NEOPLASM OF UNSP PART OF UNSP BRONCHUS OR LUNG Qualifiers: Laterality: right Lung location: upper lobe of lung Qualified Code(s): C34.11 - Malignant neoplasm of upper lobe, right bronchus or lung (11) UTI (urinary tract infection) Code(s): N39.0 - URINARY TRACT INFECTION, SITE NOT SPECIFIED Qualifiers: Hematuria presence: without hematuria Assessment/Plan 1. Lethargy referable to hyponatremia and pre-renal acute on CKD 2. UTI 3. Right lung adenocarcinoma s/p resection 4. COPD 5. CAD angina pectoris 6. Systolic murmur consistent with MR disease 7. HTN 8. Thrombocytopenia 9. Hypokalemia Plan: 1. Continue Toprol XL 12.5 bid, ASA 81 qd 2. IVF, empiric abx, monitor Na and renal recovery, replete K 3. F/u with Dr. Owens and Candelario as outpatient 4. DVT and GI prophylaxis, will obtain outpatient records
--- NOTE | 2018-01-15 11:52 | PN ---
Progress Note, Physician Chief Complaint: Pt lying in bed in no acute distress. Reports she is feeling a lot better since coming in. still feels weak and fatigue. Had SOB overnight but now feels ok per pt. Denies any chest discomfort, sob, n/v/d, or fever/chills - Current Medication List Current Medications: Active Medications Aspirin (Asa -) 81 mg PO DAILY [facility] Last Admin: 01/15/18 09:42 Dose: 81 mg Heparin Sodium (Porcine) (Heparin -) 5,000 unit SQ BID [facility] Last Admin: 01/15/18 09:42 Dose: 5,000 unit Ceftriaxone Sodium 1 gm/ (Sodium Chloride) 50 mls @ 100 mls/hr IVPB DAILY [facility] Last Admin: 01/15/18 10:48 Dose: 100 mls/hr Potassium Chloride 10 meq/ (Sodium Chloride) 105 mls @ 105 mls/hr IVPB Q60M [facility] Stop: 01/15/18 13:14 Sodium Chloride (Normal Saline -) 1,000 mls @ 42 mls/hr IV ASDIR [facility] Last Admin: 01/15/18 11:00 Dose: Not Given Lactobacillus Acidophilus (Bacid -) 1 tab PO DAILY [facility] Metoprolol Succinate (Toprol Xl -) 12.5 mg PO BID [facility] Last Admin: 01/15/18 09:42 Dose: 12.5 mg Multivitamins/Minerals/Vitamin C (Tab-A-Vit -) 1 tab PO DAILY [facility] Last Admin: 01/15/18 09:42 Dose: 1 tab Potassium Phos/Sodium Phos (Phos-Nak Packet -) 1 packet PO TID [facility] Stop: 01/16/18 13:59 Ranitidine HCl (Zantac -) 150 mg PO BID [facility] Last Admin: 01/15/18 09:42 Dose: 150 mg - Objective Vital Signs: Vital Signs Temperature 98.7 F 01/15/18 08:00 Pulse Rate 88 01/15/18 08:00 Respiratory Rate 18 01/15/18 08:00 Blood Pressure 135/64 01/15/18 08:00 O2 Sat by Pulse Oximetry (%) 94 L 01/15/18 08:45 Constitutional: Yes: Well Nourished, No Distress Cardiovascular: Yes: WNL, Regular Rate and Rhythm, Murmur. No: Bruit, Gallop, Rub Respiratory: Yes: WNL, Regular, On Nasal O2, Rales (bibasilar). No: Rhonchi, Tachypnea, Wheezes Gastrointestinal: Yes: WNL, Normal Bowel Sounds, Soft, Abdomen, Obese. No: Distention, Tenderness Edema: No Neurological: Yes: WNL, Alert, Oriented Psychiatric: Yes: WNL, Alert, Oriented Labs: CBC, BMP 01/15/18 06:30 01/15/18 06:30 Problem List - Problems (1) Hyponatremia Code(s): E87.1 - HYPO-OSMOLALITY AND HYPONATREMIA (2) UTI (urinary tract infection) Code(s): N39.0 - URINARY TRACT INFECTION, SITE NOT SPECIFIED Qualifiers: Hematuria presence: without hematuria (3) Leukocytosis Code(s): D72.829 - ELEVATED WHITE BLOOD CELL COUNT, UNSPECIFIED Qualifiers: Leukocytosis type: unspecified Qualified Code(s): D72.829 - Elevated white blood cell count, unspecified (4) CRUZ (acute kidney injury) Code(s): N17.9 - ACUTE KIDNEY FAILURE, UNSPECIFIED (5) Generalized weakness Code(s): R53.1 - WEAKNESS (6) HTN (hypertension) Code(s): I10 - ESSENTIAL (PRIMARY) HYPERTENSION Qualifiers: Hypertension type: essential hypertension Qualified Code(s): I10 - Essential (primary) hypertension (7) Lung cancer Code(s): C34.90 - MALIGNANT NEOPLASM OF UNSP PART OF UNSP BRONCHUS OR LUNG Qualifiers: Laterality: right Lung location: upper lobe of lung Qualified Code(s): C34.11 - Malignant neoplasm of upper lobe, right bronchus or lung (8) DVT prophylaxis Code(s): [id number] - (9) CAD (coronary artery disease) Code(s): I25.10 - ATHSCL HEART DISEASE OF [place] CORONARY ARTERY W/O ANG PCTRS Qualifiers: Coronary Disease-Associated Artery/Lesion type: [place] artery [place] vs. transplanted heart: [place] heart Associated angina: without angina Qualified Code(s): I25.10 - Atherosclerotic heart disease of [place] coronary artery without angina pectoris (10) GERD (gastroesophageal reflux disease) Code(s): K21.9 - GASTRO-ESOPHAGEAL REFLUX DISEASE WITHOUT ESOPHAGITIS Qualifiers: Esophagitis presence: without esophagitis Qualified Code(s): K21.9 - Gastro -esophageal reflux disease without esophagitis (11) COPD (chronic obstructive pulmonary disease) Code(s): J44.9 - CHRONIC OBSTRUCTIVE PULMONARY DISEASE, UNSPECIFIED Qualifiers: COPD type: unspecified COPD Qualified Code(s): J44.9 - Chronic obstructive pulmonary disease, unspecified (12) History of alcohol abuse Code(s): Z87.898 - PERSONAL HISTORY OF OTHER SPECIFIED CONDITIONS (13) Hypokalemia Code(s): E87.6 - HYPOKALEMIA (14) Hypophosphatemia Code(s): E83.39 - OTHER DISORDERS OF PHOSPHORUS METABOLISM Assessment/Plan (1) Hyponatremia Assessment/Plan: hypovolemic/hypotonic hyponatremia improved with ivf urine na/cl low secondary to intravasc volume depletion NS decreased to 42ml/hr chest xray reviewed, no sig congestive findings will monitor bmp closely Nephrology following Code(s): E87.1 - HYPO-OSMOLALITY AND HYPONATREMIA (2) UTI (urinary tract infection) Assessment/Plan: UA+, +leukocytosis , left shift UC pending ceftriaxone started, day 2 will monitor Code(s): N39.0 - URINARY TRACT INFECTION, SITE NOT SPECIFIED Qualifiers: Hematuria presence: without hematuria (3) Leukocytosis Assessment/Plan: secondary to UTI as above Code(s): D72.829 - ELEVATED WHITE BLOOD CELL COUNT, UNSPECIFIED Qualifiers: Leukocytosis type: unspecified Qualified Code(s): D72.829 - Elevated white blood cell count, unspecified (4) CRUZ (acute kidney injury) Assessment/Plan: secondary to prerenal improving with ivf will monitor Code(s): N17.9 - ACUTE KIDNEY FAILURE, UNSPECIFIED (5) Generalized weakness Assessment/Plan: improving, secondary to underlying condition treat and monitor for improvement PT Code(s): R53.1 - WEAKNESS (6) HTN (hypertension) Assessment/Plan: controlled allow permissive htn in the setting of hypovolemia metoprolol per parameters Code(s): I10 - ESSENTIAL (PRIMARY) HYPERTENSION Qualifiers: Hypertension type: essential hypertension Qualified Code(s): I10 - Essential (primary) hypertension (7) Lung cancer Assessment/Plan: s/p left lobe resection last CT without changes followed by outpt Onc consult appreciated Code(s): C34.90 - MALIGNANT NEOPLASM OF UNSP PART OF UNSP BRONCHUS OR LUNG Qualifiers: Laterality: right Lung location: upper lobe of lung Qualified Code(s): C34.11 - Malignant neoplasm of upper lobe, right bronchus or lung (8) DVT prophylaxis Assessment/Plan: Heparin SQ SCDs Code(s): [id number] - (9) CAD (coronary artery disease) Assessment/Plan: stable ekg continue aspirin, metoprolol followed by as outpatient Code(s): I25.10 - ATHSCL HEART DISEASE OF [place] CORONARY ARTERY W/O ANG PCTRS Qualifiers: Coronary Disease-Associated Artery/Lesion type: [place] artery [place] vs. transplanted heart: [place] heart Associated angina: without angina Qualified Code(s): I25.10 - Atherosclerotic heart disease of [place] coronary artery without angina pectoris (10) GERD (gastroesophageal reflux disease) Assessment/Plan: chronic continue zantac Code(s): K21.9 - GASTRO-ESOPHAGEAL REFLUX DISEASE WITHOUT ESOPHAGITIS Qualifiers: Esophagitis presence: without esophagitis Qualified Code(s): K21.9 - Gastro -esophageal reflux disease without esophagitis (11) COPD (chronic obstructive pulmonary disease) Assessment/Plan: stable Code(s): J44.9 - CHRONIC OBSTRUCTIVE PULMONARY DISEASE, UNSPECIFIED Qualifiers: COPD type: unspecified COPD Qualified Code(s): J44.9 - Chronic obstructive pulmonary disease, unspecified (12) History of alcohol abuse Assessment/Plan: stable Code(s): Z87.898 - PERSONAL HISTORY OF OTHER SPECIFIED CONDITIONS (13) Hypokalemia Assessment/Plan: k2.9 potassium 10meq ivx 3 runs monitor bmp Code(s): E87.6 - HYPOKALEMIA (14) Hypophosphatemia Assessment/Plan: Phos[place]ak tid x 1day monitor bmp Code(s): E83.39 - OTHER DISORDERS OF PHOSPHORUS METABOLISM
[2018-01-15] MEDS: LACTOBACILLUS ACIDOPHILUS 1 EACH TAB (FP) PO SCH (11:53)
[2018-01-15] MEDS: POTASSIUM CHLORIDE 10 MEQ in SODIUM CHLORIDE 100 ML IVPB SCH ×3 (12:59→17:00)
[2018-01-15] MEDS: NAPH,MB-DB/K PH,MBDB POWDER PACKET PO SCH ×2 (13:13→21:56)
--- NOTE | 2018-01-15 14:37 | PN ---
Progress Note, Physician History of Present Illness: Pt seen and examined at bedside. She is awake and alert. PO intake is improving. - Current Medication List Current Medications: Active Medications Aspirin (Asa -) 81 mg PO DAILY [facility] Last Admin: 01/15/18 09:42 Dose: 81 mg Heparin Sodium (Porcine) (Heparin -) 5,000 unit SQ BID [facility] Last Admin: 01/15/18 09:42 Dose: 5,000 unit Ceftriaxone Sodium 1 gm/ (Sodium Chloride) 50 mls @ 100 mls/hr IVPB DAILY [facility] Last Admin: 01/15/18 10:48 Dose: 100 mls/hr Sodium Chloride (Normal Saline -) 1,000 mls @ 42 mls/hr IV ASDIR [facility] Last Admin: 01/15/18 11:00 Dose: Not Given Lactobacillus Acidophilus (Bacid -) 1 tab PO DAILY [facility] Last Admin: 01/15/18 11:53 Dose: 1 tab Metoprolol Succinate (Toprol Xl -) 12.5 mg PO BID [facility] Last Admin: 01/15/18 09:42 Dose: 12.5 mg Multivitamins/Minerals/Vitamin C (Tab-A-Vit -) 1 tab PO DAILY [facility] Last Admin: 01/15/18 09:42 Dose: 1 tab Potassium Phos/Sodium Phos (Phos-Nak Packet -) 1 packet PO TID [facility] Stop: 01/16/18 13:59 Last Admin: 01/15/18 13:13 Dose: 1 packet Ranitidine HCl (Zantac -) 150 mg PO BID [facility] Last Admin: 01/15/18 09:42 Dose: 150 mg - Objective Vital Signs: Vital Signs Temperature 98.7 F 01/15/18 08:00 Pulse Rate 88 01/15/18 08:00 Respiratory Rate 18 01/15/18 08:00 Blood Pressure 135/64 01/15/18 08:00 O2 Sat by Pulse Oximetry (%) 94 L 01/15/18 08:45 Constitutional: Yes: Calm Eyes: Yes: Conjunctiva Clear HENT: Yes: Atraumatic Neck: Yes: Supple Cardiovascular: Yes: S1, S2 Respiratory: Yes: CTA Bilaterally Gastrointestinal: Yes: Normal Bowel Sounds, Soft Musculoskeletal: Yes: WNL Edema: No Neurological: Yes: Oriented Psychiatric: Yes: Oriented Labs: CBC, BMP 01/15/18 06:30 01/15/18 06:30 Problem List - Problems (1) CRUZ (acute kidney injury) Code(s): N17.9 - ACUTE KIDNEY FAILURE, UNSPECIFIED (2) CAD (coronary artery disease) Code(s): I25.10 - ATHSCL HEART DISEASE OF [place] CORONARY ARTERY W/O ANG PCTRS Qualifiers: Coronary Disease-Associated Artery/Lesion type: [place] artery [place] vs. transplanted heart: [place] heart Associated angina: without angina Qualified Code(s): I25.10 - Atherosclerotic heart disease of [place] coronary artery without angina pectoris (3) COPD (chronic obstructive pulmonary disease) Code(s): J44.9 - CHRONIC OBSTRUCTIVE PULMONARY DISEASE, UNSPECIFIED Qualifiers: COPD type: unspecified COPD Qualified Code(s): J44.9 - Chronic obstructive pulmonary disease, unspecified (4) Generalized weakness Code(s): R53.1 - WEAKNESS (5) HTN (hypertension) Code(s): I10 - ESSENTIAL (PRIMARY) HYPERTENSION Qualifiers: Hypertension type: essential hypertension Qualified Code(s): I10 - Essential (primary) hypertension (6) Hyponatremia Code(s): E87.1 - HYPO-OSMOLALITY AND HYPONATREMIA (7) Lung cancer Code(s): C34.90 - MALIGNANT NEOPLASM OF UNSP PART OF UNSP BRONCHUS OR LUNG Qualifiers: Laterality: right Lung location: upper lobe of lung Qualified Code(s): C34.11 - Malignant neoplasm of upper lobe, right bronchus or lung Assessment/Plan Current Medications Generic Name Dose Route Start Last Admin Trade Name Freq PRN Reason Stop Dose Admin Aspirin 81 mg 01/14/18 10:00 01/15/18 09:42 Asa - PO 81 mg DAILY BRENDA Administration Heparin Sodium (Porcine) 5,000 unit 01/13/18 22:00 01/15/18 09:42 Heparin - SQ 5,000 unit BID BRENDA Administration Ceftriaxone Sodium 1 gm/ 50 mls @ 100 mls/hr 01/15/18 10:00 01/15/18 10:48 Sodium Chloride IVPB 100 mls/hr DAILY BRENDA Administration Sodium Chloride 1,000 mls @ 42 mls/hr 01/15/18 10:07 01/15/18 11:00 Normal Saline - IV Not Given ASDIR BRENDA Lactobacillus Acidophilus 1 tab 01/15/18 10:30 01/15/18 11:53 Bacid - PO 1 tab DAILY BRENDA Administration Metoprolol Succinate 12.5 mg 01/14/18 22:00 01/15/18 09:42 Toprol Xl - PO 12.5 mg BID BRENDA Administration Multivitamins/Minerals/Vitamin C 1 tab 01/15/18 10:00 01/15/18 09:42 Tab-A-Vit - PO 1 tab DAILY BRENDA Administration Potassium Phos/Sodium Phos 1 packet 01/15/18 14:00 01/15/18 13:13 Phos-Nak Packet - PO 01/16/18 13:59 1 packet TID BRENDA Administration Ranitidine HCl 150 mg 01/14/18 10:45 01/15/18 09:42 Zantac - PO 150 mg BID BRENDA Administration Impression 1. Hyponatremia 2. dehydration 3. CRUZ 4. HTN 5. COPD 6. lung cancer 7. gerd 8. UTI 9. small right renal cyst Plan - sodium is improving - renal function is improving - cont with saline - repeat labs in am - encourage PO intake - follow urine and blood cultures - discussed with medical team - renal ultrasound reviewed
[2018-01-16] MEDS: NAPH,MB-DB/K PH,MBDB POWDER PACKET PO SCH (06:22)
[2018-01-16] MEDS: ALBUTEROL SO4 2.5/IPRATROPIUM 0.5 INH SOL 3 ML VIAL.NEB. NEB SCH ×4 (06:30→07:25)
[2018-01-16 07:21] LABS: HEMATOCRIT 27.6 % (32.4-45.2); HEMOGLOBIN 9.7 GM/dL (10.7-15.3); MCH 32.3 pg (25.7-33.7); MCHC 35.3 g/dl (32.0-36.0); MEAN CELL VOLUME 91.7 fl (80-96); MEAN PLT VOLUME 7.4 fl (7.5-11.1); PLATELET COUNT 162 K/MM3 (134-434); RBC 3.01 M/mm3 (3.60-5.2); RDW 15.9 % (11.6-15.6); WHITE BLOOD COUNT 18.6 K/mm3 (4.0-10.0)
[2018-01-16 07:49] LABS: ANION GAP 12 (8-16); BLOOD UREA NITROGEN 31 mg/dL (7-18); CALCIUM 7.1 mg/dL (8.5-10.1); CHLORIDE 101 mmol/L (98-107); CO2 21 mmol/L (21-32); CREATININE 1.1 mg/dL (0.55-1.02); GLUCOSE,RANDOM 216 mg/dL (74-106); MAGNESIUM 2.4 mg/dL (1.8-2.4); POTASSIUM 3.7 mmol/L (3.5-5.1); SODIUM 134 mmol/L (136-145)
[2018-01-16] MEDS ORDERED: PT OWN MED DRAWER 7, Y5N ONE ×2 (09:22)
[2018-01-16 09:37] LABS: PLATELET ESTIMATE ADEQUATE; TOXIC GRANULATION 1+
[2018-01-16] MEDS: HEPARIN NA (PORCINE) 5,000 UNITS/ML 1ML VIAL SQ SCH ×2 (09:37→21:18)
[2018-01-16] MEDS: MULTIVITAMINS (DAILY MVI) TABLET (FP) PO SCH (09:37)
[2018-01-16] MEDS: metoPROLOL SUCCINATE 25 MG TAB.SR.24H (FP) PO SCH ×2 (09:37→21:18)
[2018-01-16] MEDS: ASPIRIN 81 MG CHEWABLE TABLETS PO SCH (09:37)
[2018-01-16] MEDS: LACTOBACILLUS ACIDOPHILUS 1 EACH TAB (FP) PO SCH (09:37)
[2018-01-16] MEDS: RANITIDINE HCL 150 MG TABLET (FP) PO SCH ×2 (09:37→21:18)
[2018-01-16] MEDS: CEFTRIAXONE 1 GM in SODIUM CHLORIDE 50 ML IVPB SCH (09:38)
[2018-01-16] MEDS ORDERED: POTASSIUM CHLORIDE 10 MEQ in SODIUM CHLORIDE 100 ML IVPB SCH (10:30)
[2018-01-16 10:55] LABS: HEMATOCRIT 25.2 % (32.4-45.2); HEMOGLOBIN 8.8 GM/dL (10.7-15.3); MCHC 34.9 g/dl (32.0-36.0); MEAN CELL VOLUME 91.5 fl (80-96); MEAN PLT VOLUME 7.1 fl (7.5-11.1); PLATELET COUNT 139 K/MM3 (134-434); RBC 2.75 M/mm3 (3.60-5.2); RDW 15.6 % (11.6-15.6); WHITE BLOOD COUNT 15.9 K/mm3 (4.0-10.0)
[2018-01-16] MEDS: SODIUM CHLORIDE 1,000 ML IV SCH (11:00)
[2018-01-16 11:45] LABS: PLATELET ESTIMATE ADEQUATE
--- NOTE | 2018-01-16 11:53 | PN ---
Progress Note, Physician Chief Complaint: Pt lying in bed in no acute distress. Had SOB overnight but now feels ok per pt. Denies any chest discomfort, sob, n/v/d, or fever/chills - Current Medication List Current Medications: Active Medications Albuterol Sulfate (Ventolin 0.083% Nebulizer Soln -) 1 amp NEB Q8H PRN PRN Reason: SHORT OF BREATH/WHEEZING Aspirin (Asa -) 81 mg PO DAILY [facility] Last Admin: 01/16/18 09:37 Dose: 81 mg Heparin Sodium (Porcine) (Heparin -) 5,000 unit SQ BID [facility] Last Admin: 01/16/18 09:37 Dose: 5,000 unit Ceftriaxone Sodium 1 gm/ (Sodium Chloride) 50 mls @ 100 mls/hr IVPB DAILY [facility] Last Admin: 01/16/18 09:38 Dose: 100 mls/hr Lactobacillus Acidophilus (Bacid -) 1 tab PO DAILY [facility] Last Admin: 01/16/18 09:37 Dose: 1 tab Metoprolol Succinate (Toprol Xl -) 12.5 mg PO BID [facility] Last Admin: 01/16/18 09:37 Dose: 12.5 mg Multivitamins/Minerals/Vitamin C (Tab-A-Vit -) 1 tab PO DAILY [facility] Last Admin: 01/16/18 09:37 Dose: 1 tab Potassium Phos/Sodium Phos (Phos-Nak Packet -) 1 packet PO TID [facility] Stop: 01/16/18 13:59 Last Admin: 01/16/18 06:22 Dose: 1 packet Ranitidine HCl (Zantac -) 150 mg PO BID [facility] Last Admin: 01/16/18 09:37 Dose: 150 mg - Objective Vital Signs: Vital Signs Temperature 98.6 F 01/16/18 08:00 Pulse Rate 84 01/16/18 08:00 Respiratory Rate 18 01/16/18 08:00 Blood Pressure 140/60 01/16/18 08:00 O2 Sat by Pulse Oximetry (%) 96 01/16/18 09:00 Constitutional: Yes: Well Nourished, No Distress Cardiovascular: Yes: WNL, Regular Rate and Rhythm, Murmur. No: Bruit, Gallop, Rub Respiratory: Yes: WNL, Regular, CTA Bilaterally. No: Rales, Rhonchi, SOB, Stridor, Tachypnea, Wheezes Gastrointestinal: Yes: WNL, Normal Bowel Sounds, Soft. No: Distention, Tenderness Genitourinary: Yes: WNL Edema: No Neurological: Yes: WNL, Alert, Oriented Psychiatric: Yes: WNL, Alert, Oriented Labs: CBC, BMP 01/16/18 10:40 01/16/18 06:50 - ....Imaging Chest X-ray: Report Reviewed Problem List - Problems (1) Hyponatremia Code(s): E87.1 - HYPO-OSMOLALITY AND HYPONATREMIA (2) UTI (urinary tract infection) Code(s): N39.0 - URINARY TRACT INFECTION, SITE NOT SPECIFIED Qualifiers: Hematuria presence: without hematuria (3) Leukocytosis Code(s): D72.829 - ELEVATED WHITE BLOOD CELL COUNT, UNSPECIFIED Qualifiers: Leukocytosis type: unspecified Qualified Code(s): D72.829 - Elevated white blood cell count, unspecified (4) CRUZ (acute kidney injury) Code(s): N17.9 - ACUTE KIDNEY FAILURE, UNSPECIFIED (5) Generalized weakness Code(s): R53.1 - WEAKNESS (6) HTN (hypertension) Code(s): I10 - ESSENTIAL (PRIMARY) HYPERTENSION Qualifiers: Hypertension type: essential hypertension Qualified Code(s): I10 - Essential (primary) hypertension (7) Lung cancer Code(s): C34.90 - MALIGNANT NEOPLASM OF UNSP PART OF UNSP BRONCHUS OR LUNG Qualifiers: Laterality: right Lung location: upper lobe of lung Qualified Code(s): C34.11 - Malignant neoplasm of upper lobe, right bronchus or lung (8) DVT prophylaxis Code(s): [id number] - (9) CAD (coronary artery disease) Code(s): I25.10 - ATHSCL HEART DISEASE OF [place] CORONARY ARTERY W/O ANG PCTRS Qualifiers: Coronary Disease-Associated Artery/Lesion type: [place] artery [place] vs. transplanted heart: [place] heart Associated angina: without angina Qualified Code(s): I25.10 - Atherosclerotic heart disease of [place] coronary artery without angina pectoris (10) GERD (gastroesophageal reflux disease) Code(s): K21.9 - GASTRO-ESOPHAGEAL REFLUX DISEASE WITHOUT ESOPHAGITIS Qualifiers: Esophagitis presence: without esophagitis Qualified Code(s): K21.9 - Gastro -esophageal reflux disease without esophagitis (11) COPD (chronic obstructive pulmonary disease) Code(s): J44.9 - CHRONIC OBSTRUCTIVE PULMONARY DISEASE, UNSPECIFIED Qualifiers: COPD type: unspecified COPD Qualified Code(s): J44.9 - Chronic obstructive pulmonary disease, unspecified (12) History of alcohol abuse Code(s): Z87.898 - PERSONAL HISTORY OF OTHER SPECIFIED CONDITIONS (13) Hypokalemia Code(s): E87.6 - HYPOKALEMIA (14) Hypophosphatemia Code(s): E83.39 - OTHER DISORDERS OF PHOSPHORUS METABOLISM (15) Anemia Code(s): D64.9 - ANEMIA, UNSPECIFIED Qualifiers: Anemia type: other cause Assessment/Plan (1) Hyponatremia Assessment/Plan: hypovolemic/hypotonic hyponatremia improved with ivf urine na/cl low secondary to intravasc volume depletion ivf d/c'd chest xray reviewed, no sig congestive findings will monitor bmp closely Nephrology following Code(s): E87.1 - HYPO-OSMOLALITY AND HYPONATREMIA (2) UTI (urinary tract infection) Assessment/Plan: UA+, +leukocytosis , left shift UC pending ceftriaxone, day 3 will monitor Code(s): N39.0 - URINARY TRACT INFECTION, SITE NOT SPECIFIED Qualifiers: Hematuria presence: without hematuria (3) Leukocytosis Assessment/Plan: secondary to UTI slight elevation in wbcs today crp/esr elevated blood cultures neg ID consulted, stop antibiotics if rise in leukocytosis and watch ID consult appreciated Code(s): D72.829 - ELEVATED WHITE BLOOD CELL COUNT, UNSPECIFIED Qualifiers: Leukocytosis type: unspecified Qualified Code(s): D72.829 - Elevated white blood cell count, unspecified (4) CRUZ (acute kidney injury) Assessment/Plan: secondary to prerenal improving with ivf will monitor Code(s): N17.9 - ACUTE KIDNEY FAILURE, UNSPECIFIED (5) Generalized weakness Assessment/Plan: improving, secondary to underlying condition treat and monitor for improvement PT Code(s): R53.1 - WEAKNESS (6) HTN (hypertension) Assessment/Plan: controlled allow permissive htn in the setting of hypovolemia metoprolol per parameters Code(s): I10 - ESSENTIAL (PRIMARY) HYPERTENSION Qualifiers: Hypertension type: essential hypertension Qualified Code(s): I10 - Essential (primary) hypertension (7) Lung cancer Assessment/Plan: s/p left lobe resection last CT without changes followed by outpt Onc consult appreciated Code(s): C34.90 - MALIGNANT NEOPLASM OF UNSP PART OF UNSP BRONCHUS OR LUNG Qualifiers: Laterality: right Lung location: upper lobe of lung Qualified Code(s): C34.11 - Malignant neoplasm of upper lobe, right bronchus or lung (8) DVT prophylaxis Assessment/Plan: Heparin SQ SCDs Code(s): [id number] - (9) CAD (coronary artery disease) Assessment/Plan: stable ekg reviewed continue aspirin, metoprolol followed by as outpatient Code(s): I25.10 - ATHSCL HEART DISEASE OF [place] CORONARY ARTERY W/O ANG PCTRS Qualifiers: Coronary Disease-Associated Artery/Lesion type: [place] artery [place] vs. transplanted heart: [place] heart Associated angina: without angina Qualified Code(s): I25.10 - Atherosclerotic heart disease of [place] coronary artery without angina pectoris (10) GERD (gastroesophageal reflux disease) Assessment/Plan: chronic continue zantac Code(s): K21.9 - GASTRO-ESOPHAGEAL REFLUX DISEASE WITHOUT ESOPHAGITIS Qualifiers: Esophagitis presence: without esophagitis Qualified Code(s): K21.9 - Gastro -esophageal reflux disease without esophagitis (11) COPD (chronic obstructive pulmonary disease) Assessment/Plan: stable Code(s): J44.9 - CHRONIC OBSTRUCTIVE PULMONARY DISEASE, UNSPECIFIED Qualifiers: COPD type: unspecified COPD Qualified Code(s): J44.9 - Chronic obstructive pulmonary disease, unspecified (12) History of alcohol abuse Assessment/Plan: stable Code(s): Z87.898 - PERSONAL HISTORY OF OTHER SPECIFIED CONDITIONS (13) Hypokalemia Assessment/Plan: improved potassium 10meq ivx 1 run monitor bmp Code(s): E87.6 - HYPOKALEMIA (14) Hypophosphatemia Assessment/Plan: improving PhosNak monitor bmp Code(s): E83.39 - OTHER DISORDERS OF PHOSPHORUS METABOLISM (15) Anemia Assessment/Plan: drop in h/h today possibly secondary to inflammation/ chronic disease hematology recs appreciated iron/tibc/iron sat pending ferritin high vitb12 pending hemeoccult will monitor Code(s): D64.9 - ANEMIA, UNSPECIFIED Qualifiers: Anemia type: other cause Dispo: SNF tomorrow if clinically no changes. STOP ANTIBX IF LEUKOCYTOSIS PERSISTS PER ID. ID recs much appreciated
[2018-01-16] MEDS: ALBUTEROL SO4 0.083% IH SOL 2.5 MG/3 ML VIAL.NEB. NEB PRN ×2 (12:13→20:30)
--- NOTE | 2018-01-16 13:48 | PN ---
Progress Note (short form) - Note Progress Note: Patient seen and examined Coughing, short of breath , weak, dyspneic on minimal movement even in bed Last Vital Signs Temp Pulse Resp BP Pulse Ox 98.6 F 84 18 140/60 96 01/16/18 08:00 01/16/18 08:00 01/16/18 08:00 01/16/18 08:00 01/16/18 09:00 HEENT: GINA, EOM Intact Oropharynx: No thrush, No mucositis Neck: Supple Nodes: Without adenopathy Breasts: Without masses Cor: RSR, No murmurs, No gallops Lungs:scattered rhonchi Abd: Soft, Normal bowel sounds, No organomegaly Ext:No significant edema Skin: No rashes, Integument intact CBC, BMP 01/16/18 10:40 01/16/18 06:50 Microbiology 01/15/18 10:20 Blood - Peripheral Venous Blood Culture - Preliminary NO GROWTH OBTAINED AFTER 24 HOURS, INCUBATION TO CONTINUE FOR 4 DAYS. 01/15/18 10:20 Blood - Peripheral Venous Blood Culture - Preliminary NO GROWTH OBTAINED AFTER 24 HOURS, INCUBATION TO CONTINUE FOR 4 DAYS. 01/14/18 16:20 Urine - Urine - Catheterized Urine Culture - Final Current Medications Generic Name Dose Route Start Last Admin Trade Name Freq PRN Reason Stop Dose Admin Albuterol Sulfate 1 amp 01/16/18 11:47 01/16/18 12:13 Ventolin 0.083% Nebulizer Soln - NEB 1 amp Q8H PRN Administration SHORT OF BREATH/WHEEZING Aspirin 81 mg 01/14/18 10:00 01/16/18 09:37 Asa - PO 81 mg DAILY BRENDA Administration Heparin Sodium (Porcine) 5,000 unit 01/13/18 22:00 01/16/18 09:37 Heparin - SQ 5,000 unit BID BRENDA Administration Ceftriaxone Sodium 1 gm/ 50 mls @ 100 mls/hr 01/15/18 10:00 01/16/18 09:38 Sodium Chloride IVPB 100 mls/hr DAILY BRENDA Administration Lactobacillus Acidophilus 1 tab 01/15/18 10:30 01/16/18 09:37 Bacid - PO 1 tab DAILY BRENDA Administration Metoprolol Succinate 12.5 mg 01/14/18 22:00 01/16/18 09:37 Toprol Xl - PO 12.5 mg BID BRENDA Administration Multivitamins/Minerals/Vitamin C 1 tab 01/15/18 10:00 01/16/18 09:37 Tab-A-Vit - PO 1 tab DAILY BRENDA Administration Potassium Phos/Sodium Phos 1 packet 01/15/18 14:00 01/16/18 06:22 Phos-Nak Packet - PO 01/16/18 13:59 1 packet TID BRENDA Administration Ranitidine HCl 150 mg 01/14/18 10:45 01/16/18 09:37 Zantac - PO 150 mg BID BRENDA Administration Impression: SOB/Dyspnea -? pulmonary, ? cardiac Hyponatremia-improved CRUZ- improving UTI-ceftriaxone Anemia? ? chronic disease ? other Lung ca - recently with stable chest CT Cirrhosis Prior hx of substance (alcohol) abuse Plan: Evaluate anemia ? cardiac assessment
--- NOTE | 2018-01-16 14:13 | PN ---
Progress Note, Physician History of Present Illness: Resting comfortably. wheezing overnight, none now, CXR negative. - Current Medication List Current Medications: Active Medications Albuterol Sulfate (Ventolin 0.083% Nebulizer Soln -) 1 amp NEB Q8H PRN PRN Reason: SHORT OF BREATH/WHEEZING Last Admin: 01/16/18 12:13 Dose: 1 amp Aspirin (Asa -) 81 mg PO DAILY [facility] Last Admin: 01/16/18 09:37 Dose: 81 mg Heparin Sodium (Porcine) (Heparin -) 5,000 unit SQ BID [facility] Last Admin: 01/16/18 09:37 Dose: 5,000 unit Ceftriaxone Sodium 1 gm/ (Sodium Chloride) 50 mls @ 100 mls/hr IVPB DAILY [facility] Last Admin: 01/16/18 09:38 Dose: 100 mls/hr Lactobacillus Acidophilus (Bacid -) 1 tab PO DAILY [facility] Last Admin: 01/16/18 09:37 Dose: 1 tab Metoprolol Succinate (Toprol Xl -) 12.5 mg PO BID [facility] Last Admin: 01/16/18 09:37 Dose: 12.5 mg Multivitamins/Minerals/Vitamin C (Tab-A-Vit -) 1 tab PO DAILY [facility] Last Admin: 01/16/18 09:37 Dose: 1 tab Ranitidine HCl (Zantac -) 150 mg PO BID [facility] Last Admin: 01/16/18 09:37 Dose: 150 mg - Objective Vital Signs: Vital Signs Temperature 98.6 F 01/16/18 08:00 Pulse Rate 84 01/16/18 08:00 Respiratory Rate 18 01/16/18 08:00 Blood Pressure 140/60 01/16/18 08:00 O2 Sat by Pulse Oximetry (%) 96 01/16/18 09:00 Constitutional: Yes: No Distress, Calm Neck: Yes: Supple Cardiovascular: Yes: Regular Rate and Rhythm Respiratory: Yes: Regular, Diminished, On Nasal O2 Gastrointestinal: Yes: Normal Bowel Sounds, Soft Edema: No Labs: CBC, BMP 01/16/18 10:40 01/16/18 06:50 - ....Imaging Chest X-ray: Report Reviewed (NAD) Problem List - Problems (1) CRUZ (acute kidney injury) Code(s): N17.9 - ACUTE KIDNEY FAILURE, UNSPECIFIED (2) CAD (coronary artery disease) Code(s): I25.10 - ATHSCL HEART DISEASE OF [place] CORONARY ARTERY W/O ANG PCTRS Qualifiers: Coronary Disease-Associated Artery/Lesion type: [place] artery [place] vs. transplanted heart: [place] heart Associated angina: without angina Qualified Code(s): I25.10 - Atherosclerotic heart disease of [place] coronary artery without angina pectoris (3) COPD (chronic obstructive pulmonary disease) Code(s): J44.9 - CHRONIC OBSTRUCTIVE PULMONARY DISEASE, UNSPECIFIED Qualifiers: COPD type: unspecified COPD Qualified Code(s): J44.9 - Chronic obstructive pulmonary disease, unspecified (4) DVT prophylaxis Code(s): [id number] - (5) GERD (gastroesophageal reflux disease) Code(s): K21.9 - GASTRO-ESOPHAGEAL REFLUX DISEASE WITHOUT ESOPHAGITIS Qualifiers: Esophagitis presence: without esophagitis Qualified Code(s): K21.9 - Gastro -esophageal reflux disease without esophagitis (6) Generalized weakness Code(s): R53.1 - WEAKNESS (7) HTN (hypertension) Code(s): I10 - ESSENTIAL (PRIMARY) HYPERTENSION Qualifiers: Hypertension type: essential hypertension Qualified Code(s): I10 - Essential (primary) hypertension (8) Hyponatremia Code(s): E87.1 - HYPO-OSMOLALITY AND HYPONATREMIA (9) Leukocytosis Code(s): D72.829 - ELEVATED WHITE BLOOD CELL COUNT, UNSPECIFIED Qualifiers: Leukocytosis type: unspecified Qualified Code(s): D72.829 - Elevated white blood cell count, unspecified (10) Lung cancer Code(s): C34.90 - MALIGNANT NEOPLASM OF UNSP PART OF UNSP BRONCHUS OR LUNG Qualifiers: Laterality: right Lung location: upper lobe of lung Qualified Code(s): C34.11 - Malignant neoplasm of upper lobe, right bronchus or lung (11) UTI (urinary tract infection) Code(s): N39.0 - URINARY TRACT INFECTION, SITE NOT SPECIFIED Qualifiers: Hematuria presence: without hematuria Assessment/Plan 1. Lethargy referable to hyponatremia and pre-renal acute on CKD improving 2. UTI 3. Right lung adenocarcinoma s/p resection 4. COPD 5. CAD angina pectoris 6. Systolic murmur consistent with MR disease 7. HTN 8. Thrombocytopenia 9. Hypokalemia improved Plan: 1. Continue Toprol XL 12.5 bid, ASA 81 qd, BD and O2 as needed 2. IVF, empiric abx, monitor Na and renal recovery, replete K as needed 3. F/u with Dr. Owens and Candelario as outpatient 4. DVT and GI prophylaxis
--- NOTE | 2018-01-16 15:24 | PN ---
Teaching Attending Note Name of Resident: Jian Trivedi ATTENDING PHYSICIAN STATEMENT I saw and evaluated the patient. I reviewed the resident's note and discussed the case with the resident. I agree with the resident's findings and plan as documented. SUBJECTIVE: Ceftriaxone for UTI Complains of couphing No SOB NO fever OBJECTIVE: ASSESSMENT AND PLAN: Selected Entries 01/16/18 01/16/18 01/16/18 08:00 09:00 14:18 Temperature 97.7 F Pulse Rate 80 Respiratory 18 Rate Blood Pressure 136/68 O2 Sat by Pulse 96 Oximetry (%) Lung Clear Cor S1 S2 Abd soft nontender Microbiology 01/14/18 16:20 Urine - Urine - Catheterized Urine Culture - Final 01/15/18 10:20 Blood - Peripheral Venous Blood Culture - Preliminary NO GROWTH OBTAINED AFTER 24 HOURS, INCUBATION TO CONTINUE FOR 4 DAYS. 01/15/18 10:20 Blood - Peripheral Venous Blood Culture - Preliminary NO GROWTH OBTAINED AFTER 24 HOURS, INCUBATION TO CONTINUE FOR 4 DAYS. Laboratory Tests 01/14/18 01/16/18 01/16/18 06:02 06:50 10:40 WBC 15.9 H Hgb 8.8 L Hct 25.2 L Plt Count 139 BUN 31 H C-Reactive Protein 17.8 H Ur Leukocyte Esterase 3+ H Urine WBC (Auto) 623 Urine Bacteria Many Assessment Urinary retension UTI based on U/A ( culture neg) Lung CA Plan Luekocytosis persistant despite Ceftriaxone day 2 culture no growth if WBC remains elevated would stop all antibiotics and observe Mariya HENDERSON Problem List - Problems (1) CRUZ (acute kidney injury) Code(s): N17.9 - ACUTE KIDNEY FAILURE, UNSPECIFIED (2) Lung cancer Code(s): C34.90 - MALIGNANT NEOPLASM OF UNSP PART OF UNSP BRONCHUS OR LUNG Qualifiers: Laterality: right Lung location: upper lobe of lung Qualified Code(s): C34.11 - Malignant neoplasm of upper lobe, right bronchus or lung (3) UTI (urinary tract infection) Code(s): N39.0 - URINARY TRACT INFECTION, SITE NOT SPECIFIED Qualifiers: Hematuria presence: without hematuria
[2018-01-16] MEDS ORDERED: SODIUM CHLORIDE 1 GM TABLET PO ONE (15:42)
--- NOTE | 2018-01-16 15:42 | PN ---
Progress Note, Physician History of Present Illness: Pt seen and examined at bedside. She is awake and appears comfortable. She denies shortness of breath. - Current Medication List Current Medications: Active Medications Albuterol Sulfate (Ventolin 0.083% Nebulizer Soln -) 1 amp NEB Q8H PRN PRN Reason: SHORT OF BREATH/WHEEZING Last Admin: 01/16/18 12:13 Dose: 1 amp Aspirin (Asa -) 81 mg PO DAILY [facility] Last Admin: 01/16/18 09:37 Dose: 81 mg Heparin Sodium (Porcine) (Heparin -) 5,000 unit SQ BID [facility] Last Admin: 01/16/18 09:37 Dose: 5,000 unit Ceftriaxone Sodium 1 gm/ (Sodium Chloride) 50 mls @ 100 mls/hr IVPB DAILY [facility] Last Admin: 01/16/18 09:38 Dose: 100 mls/hr Lactobacillus Acidophilus (Bacid -) 1 tab PO DAILY [facility] Last Admin: 01/16/18 09:37 Dose: 1 tab Metoprolol Succinate (Toprol Xl -) 12.5 mg PO BID [facility] Last Admin: 01/16/18 09:37 Dose: 12.5 mg Multivitamins/Minerals/Vitamin C (Tab-A-Vit -) 1 tab PO DAILY [facility] Last Admin: 01/16/18 09:37 Dose: 1 tab Ranitidine HCl (Zantac -) 150 mg PO BID [facility] Last Admin: 01/16/18 09:37 Dose: 150 mg - Objective Vital Signs: Vital Signs Temperature 97.7 F 01/16/18 14:18 Pulse Rate 80 01/16/18 14:18 Respiratory Rate 18 01/16/18 08:00 Blood Pressure 136/68 01/16/18 14:18 O2 Sat by Pulse Oximetry (%) 96 01/16/18 09:00 Constitutional: Yes: Calm Eyes: Yes: Conjunctiva Clear HENT: Yes: Atraumatic Neck: Yes: Supple Cardiovascular: Yes: S1, S2 Respiratory: Yes: On Nasal O2 Gastrointestinal: Yes: WNL Genitourinary: Yes: WNL Musculoskeletal: Yes: WNL Edema: No Integumentary: Yes: WNL Neurological: Yes: Oriented Psychiatric: Yes: Oriented Labs: CBC, BMP 01/16/18 10:40 01/16/18 06:50 Problem List - Problems (1) CRUZ (acute kidney injury) Code(s): N17.9 - ACUTE KIDNEY FAILURE, UNSPECIFIED (2) CAD (coronary artery disease) Code(s): I25.10 - ATHSCL HEART DISEASE OF [place] CORONARY ARTERY W/O ANG PCTRS Qualifiers: Coronary Disease-Associated Artery/Lesion type: [place] artery [place] vs. transplanted heart: [place] heart Associated angina: without angina Qualified Code(s): I25.10 - Atherosclerotic heart disease of [place] coronary artery without angina pectoris (3) COPD (chronic obstructive pulmonary disease) Code(s): J44.9 - CHRONIC OBSTRUCTIVE PULMONARY DISEASE, UNSPECIFIED Qualifiers: COPD type: unspecified COPD Qualified Code(s): J44.9 - Chronic obstructive pulmonary disease, unspecified (4) Generalized weakness Code(s): R53.1 - WEAKNESS (5) HTN (hypertension) Code(s): I10 - ESSENTIAL (PRIMARY) HYPERTENSION Qualifiers: Hypertension type: essential hypertension Qualified Code(s): I10 - Essential (primary) hypertension (6) Hyponatremia Code(s): E87.1 - HYPO-OSMOLALITY AND HYPONATREMIA (7) Lung cancer Code(s): C34.90 - MALIGNANT NEOPLASM OF UNSP PART OF UNSP BRONCHUS OR LUNG Qualifiers: Laterality: right Lung location: upper lobe of lung Qualified Code(s): C34.11 - Malignant neoplasm of upper lobe, right bronchus or lung Assessment/Plan Current Medications Generic Name Dose Route Start Last Admin Trade Name Freq PRN Reason Stop Dose Admin Albuterol Sulfate 1 amp 01/16/18 11:47 01/16/18 12:13 Ventolin 0.083% Nebulizer Soln - NEB 1 amp Q8H PRN Administration SHORT OF BREATH/WHEEZING Aspirin 81 mg 01/14/18 10:00 01/16/18 09:37 Asa - PO 81 mg DAILY BRENDA Administration Heparin Sodium (Porcine) 5,000 unit 01/13/18 22:00 01/16/18 09:37 Heparin - SQ 5,000 unit BID BRENDA Administration Ceftriaxone Sodium 1 gm/ 50 mls @ 100 mls/hr 01/15/18 10:00 01/16/18 09:38 Sodium Chloride IVPB 100 mls/hr DAILY BRENDA Administration Lactobacillus Acidophilus 1 tab 01/15/18 10:30 01/16/18 09:37 Bacid - PO 1 tab DAILY BRENDA Administration Metoprolol Succinate 12.5 mg 01/14/18 22:00 01/16/18 09:37 Toprol Xl - PO 12.5 mg BID BRENDA Administration Multivitamins/Minerals/Vitamin C 1 tab 01/15/18 10:00 01/16/18 09:37 Tab-A-Vit - PO 1 tab DAILY BRENDA Administration Ranitidine HCl 150 mg 01/14/18 10:45 01/16/18 09:37 Zantac - PO 150 mg BID BRENDA Administration Impression 1. Hyponatremia 2. dehydration 3. CRUZ 4. HTN 5. COPD 6. lung cancer 7. gerd 8. UTI 9. small right renal cyst Plan - encourage PO intake - monitor sodium - sodium is improving - will give and oral dose of sodium today - follow urine and blood cultures
--- NOTE | 2018-01-16 17:15 | CON.ID ---
Consult Consult Specialty:: Infectious disease Referred by:: Primary team Reason for Consultation:: Leukocytosis, UTI - History of Present Illness History of Present Illness: 82-year-old female with past medical history of lung cancer in remission, HTN, CAD, COPD, Presented with weakness and fatigue found to be hyponatremic.Patient also found to have a UTI. She was treated with one day of ceftrixone. Patient continues to have leukocytosis. She denies fever, chest pain, shortness of breath, Dysuria, urinary frequency, Urinary urgency. - History Source History Provided By: Patient Limitations to Obtaining History: No Limitations - Past Medical History Cardio/Vascular: Yes: CAD, HTN Pulmonary: Yes: Cancer (s/p resection), COPD Gastrointestinal: Yes: GERD - Past Surgical History Past Surgical History: Yes: Thoracotomy - Alcohol/Substance Use Hx Alcohol Use: No History of Substance Use: reports: None - Smoking History Smoking history: Former smoker Have you smoked in the past 12 months: No Aproximately how many cigarettes per day: 0 - Social History History of Recent Travel: No Home Medications - Allergies Allergies/Adverse Reactions: Allergies Allergy/AdvReac Type Severity Reaction Status Date / Time No Known Drug Allergies Allergy Verified 01/13/18 16:13 SEASONAL Allergy Uncoded 01/13/18 16:13 - Home Medications Home Medications: Ambulatory Orders Aspirin [ASA -] 81 mg PO DAILY #0 tab.chew 07/18/13 Metoprolol Succinate [Toprol XL -] 12.5 mg PO BID #0 tab.sr.24h 07/18/13 Multivitamin [Multivitamins] 1 each PO DAILY #0 capsule 07/18/13 Loratadine/Pseudoephedrine Sul [Claritin-D 24 Hour Tablet] 1 tab PO DAILY Ranitidine HCl [Zantac] 150 mg PO BID #0 05/13/14 Alprazolam 0.5 mg PO DAILY PRN 01/13/18 Review of Systems - Review of Systems Constitutional: denies: Chills, Diaphoresis, Fever Eyes: reports: No Symptoms HENT: reports: No Symptoms Neck: reports: No Symptoms Cardiovascular: reports: No Symptoms Respiratory: reports: Cough Genitourinary: reports: No Symptoms Physical Exam Vital Signs: Vital Signs Temperature 97.7 F 01/16/18 14:18 Pulse Rate 80 01/16/18 14:18 Respiratory Rate 18 01/16/18 08:00 Blood Pressure 136/68 01/16/18 14:18 O2 Sat by Pulse Oximetry (%) 96 01/16/18 09:00 Constitutional: Yes: No Distress, Calm Eyes: Yes: Conjunctiva Clear, EOM Intact HENT: Yes: Atraumatic, Normocephalic Neck: Yes: Supple, Trachea Midline Cardiovascular: Yes: Regular Rate and Rhythm, S1, S2 Respiratory: Yes: Regular, Rhonchi Gastrointestinal: Yes: Normal Bowel Sounds, Soft. No: Tenderness Labs: CBC, BMP 01/16/18 10:40 01/16/18 06:50 Imaging - Results Ultrasound: Report Reviewed Assessment/Plan Assessment: 1. Urinary retention 2. Asymptomatic bacteruria 3. History of lung cancer Plan: -Continue ceftriaxone -If patient continues to have leukocytosis, Stop all antibiotics.
[2018-01-17 07:49] LABS: HEMATOCRIT 25.5 % (32.4-45.2); HEMOGLOBIN 8.8 GM/dL (10.7-15.3); MCH 31.9 pg (25.7-33.7); MCHC 34.6 g/dl (32.0-36.0); MEAN CELL VOLUME 92.2 fl (80-96); MEAN PLT VOLUME 7.4 fl (7.5-11.1); PLATELET COUNT 167 K/MM3 (134-434); RBC 2.77 M/mm3 (3.60-5.2); RDW 15.7 % (11.6-15.6); WHITE BLOOD COUNT 17.5 K/mm3 (4.0-10.0)
[2018-01-17] MEDS: ALBUTEROL SO4 0.083% IH SOL 2.5 MG/3 ML VIAL.NEB. NEB PRN ×3 (07:50→16:36)
[2018-01-17 07:58] LABS: CHLORIDE 102 mmol/L (98-107); POTASSIUM 4.2 mmol/L (3.5-5.1); SODIUM 136 mmol/L (136-145)
[2018-01-17 08:07] LABS: SERUM IRON SATURATION 28 % (15-55); TOTAL IRON BINDING CAPACITY 140 ug/dL (250-450); UIBC 101 ug/dL (118-369)
[2018-01-17 08:19] LABS: ALBUMIN 1.8 g/dl (3.4-5.0); ALK PHOS 133 U/L (45-117); ANION GAP 10 (8-16); BILIRUBIN,TOTAL 0.7 mg/dL (0.2-1.0); BLOOD UREA NITROGEN 23 mg/dL (7-18); CALCIUM 7.8 mg/dL (8.5-10.1); CO2 24 mmol/L (21-32); CREATININE 0.8 mg/dL (0.55-1.02); GLUCOSE,RANDOM 265 mg/dL (74-106); SGOT/AST 144 U/L (15-37); SGPT/ALT 184 U/L (12-78); TOT PROT 4.8 g/dl (6.4-8.2)
[2018-01-17] MEDS: metoPROLOL SUCCINATE 25 MG TAB.SR.24H (FP) PO SCH ×2 (09:30→23:21)
[2018-01-17] MEDS: LACTOBACILLUS ACIDOPHILUS 1 EACH TAB (FP) PO SCH (09:30)
[2018-01-17] MEDS: ASPIRIN 81 MG CHEWABLE TABLETS PO SCH (09:31)
[2018-01-17] MEDS: RANITIDINE HCL 150 MG TABLET (FP) PO SCH ×2 (09:31→23:21)
[2018-01-17] MEDS: MULTIVITAMINS (DAILY MVI) TABLET (FP) PO SCH (09:31)
[2018-01-17] MEDS: HEPARIN NA (PORCINE) 5,000 UNITS/ML 1ML VIAL SQ SCH ×2 (09:31→23:20)
[2018-01-17 10:22] LABS: PLATELET ESTIMATE NORMAL
--- NOTE | 2018-01-17 11:28 | PN ---
Progress Note, Physician Chief Complaint: Events noted Not in distress History of Present Illness: Patient was seen and examined. Awake and alert. Chart was reviewed Denies chest pain, SOB or palpitations - Current Medication List Current Medications: Active Medications Albuterol Sulfate (Ventolin 0.083% Nebulizer Soln -) 1 amp NEB Q8H PRN PRN Reason: SHORT OF BREATH/WHEEZING Last Admin: 01/17/18 07:50 Dose: 1 amp Aspirin (Asa -) 81 mg PO DAILY [facility] Last Admin: 01/17/18 09:31 Dose: 81 mg Heparin Sodium (Porcine) (Heparin -) 5,000 unit SQ BID [facility] Last Admin: 01/17/18 09:31 Dose: 5,000 unit Lactobacillus Acidophilus (Bacid -) 1 tab PO DAILY [facility] Last Admin: 01/17/18 09:30 Dose: 1 tab Metoprolol Succinate (Toprol Xl -) 12.5 mg PO BID [facility] Last Admin: 01/17/18 09:30 Dose: 12.5 mg Multivitamins/Minerals/Vitamin C (Tab-A-Vit -) 1 tab PO DAILY [facility] Last Admin: 01/17/18 09:31 Dose: 1 tab Ranitidine HCl (Zantac -) 150 mg PO BID [facility] Last Admin: 01/17/18 09:31 Dose: 150 mg - Objective Vital Signs: Vital Signs Temperature 97.8 F 01/17/18 08:48 Pulse Rate 78 01/17/18 08:48 Respiratory Rate 18 01/17/18 08:48 Blood Pressure 148/67 01/17/18 08:48 O2 Sat by Pulse Oximetry (%) 96 01/16/18 21:00 Eyes: Yes: PERRL HENT: Yes: Atraumatic Neck: Yes: Supple Cardiovascular: Yes: Regular Rate and Rhythm, S1, S2 Respiratory: Yes: Diminished Gastrointestinal: Yes: Normal Bowel Sounds, Soft. No: Tenderness Edema: No Labs: CBC, BMP 01/17/18 06:10 01/17/18 06:10 Problem List - Problems (1) CRUZ (acute kidney injury) Code(s): N17.9 - ACUTE KIDNEY FAILURE, UNSPECIFIED (2) CAD (coronary artery disease) Code(s): I25.10 - ATHSCL HEART DISEASE OF [place] CORONARY ARTERY W/O ANG PCTRS Qualifiers: Coronary Disease-Associated Artery/Lesion type: [place] artery [place] vs. transplanted heart: [place] heart Associated angina: without angina Qualified Code(s): I25.10 - Atherosclerotic heart disease of [place] coronary artery without angina pectoris (3) COPD (chronic obstructive pulmonary disease) Code(s): J44.9 - CHRONIC OBSTRUCTIVE PULMONARY DISEASE, UNSPECIFIED Qualifiers: COPD type: unspecified COPD Qualified Code(s): J44.9 - Chronic obstructive pulmonary disease, unspecified (4) GERD (gastroesophageal reflux disease) Code(s): K21.9 - GASTRO-ESOPHAGEAL REFLUX DISEASE WITHOUT ESOPHAGITIS Qualifiers: Esophagitis presence: without esophagitis Qualified Code(s): K21.9 - Gastro -esophageal reflux disease without esophagitis (5) Generalized weakness Code(s): R53.1 - WEAKNESS (6) HTN (hypertension) Code(s): I10 - ESSENTIAL (PRIMARY) HYPERTENSION Qualifiers: Hypertension type: essential hypertension Qualified Code(s): I10 - Essential (primary) hypertension (7) Hypokalemia Code(s): E87.6 - HYPOKALEMIA (8) Hyponatremia Code(s): E87.1 - HYPO-OSMOLALITY AND HYPONATREMIA (9) Leukocytosis Code(s): D72.829 - ELEVATED WHITE BLOOD CELL COUNT, UNSPECIFIED Qualifiers: Leukocytosis type: unspecified Qualified Code(s): D72.829 - Elevated white blood cell count, unspecified (10) Lung cancer Code(s): C34.90 - MALIGNANT NEOPLASM OF UNSP PART OF UNSP BRONCHUS OR LUNG Qualifiers: Laterality: right Lung location: upper lobe of lung Qualified Code(s): C34.11 - Malignant neoplasm of upper lobe, right bronchus or lung Assessment/Plan 1. Lethargy referable to hyponatremia and pre-renal acute on CKD improved 2. UTI 3. Right lung adenocarcinoma s/p resection 4. COPD 5. CAD angina pectoris 6. Systolic murmur consistent with mitral valve disease 7. HTN 8. Thrombocytopenia 9. Hypokalemia improved PLAN: 1. Continue Toprol XL 12.5 BID, ASA 81 QD 2. Bronchodilator and O2 as needed 3. IVF, empiric antibiotic, monitor NA level and renal function and replete K as needed 4. Follow up with Dr. Owens and Candelario as outpatient 5. DVT and GI prophylaxis Further plans are to follow Andrew Randhawa MD
--- NOTE | 2018-01-17 11:59 | PN ---
Progress Note, Physician Chief Complaint: No new complaints, remained confused at base line C/O Diffuse upper abdominal pain remained afebrile - Current Medication List Current Medications: Active Medications Albuterol Sulfate (Ventolin 0.083% Nebulizer Soln -) 1 amp NEB Q8H PRN PRN Reason: SHORT OF BREATH/WHEEZING Last Admin: 01/17/18 07:50 Dose: 1 amp Aspirin (Asa -) 81 mg PO DAILY [facility] Last Admin: 01/17/18 09:31 Dose: 81 mg Heparin Sodium (Porcine) (Heparin -) 5,000 unit SQ BID [facility] Last Admin: 01/17/18 09:31 Dose: 5,000 unit Lactobacillus Acidophilus (Bacid -) 1 tab PO DAILY [facility] Last Admin: 01/17/18 09:30 Dose: 1 tab Metoprolol Succinate (Toprol Xl -) 12.5 mg PO BID [facility] Last Admin: 01/17/18 09:30 Dose: 12.5 mg Multivitamins/Minerals/Vitamin C (Tab-A-Vit -) 1 tab PO DAILY [facility] Last Admin: 01/17/18 09:31 Dose: 1 tab Ranitidine HCl (Zantac -) 150 mg PO BID [facility] Last Admin: 01/17/18 09:31 Dose: 150 mg - Objective Vital Signs: Vital Signs Temperature 97.8 F 01/17/18 08:48 Pulse Rate 78 01/17/18 08:48 Respiratory Rate 18 01/17/18 08:48 Blood Pressure 148/67 01/17/18 08:48 O2 Sat by Pulse Oximetry (%) 96 01/16/18 21:00 Elderly f confused, not in distress c/o abd pain HEENT: Mm Moist, anemia + CHEST: CTA B/L CVS: S1S2 R ABD: Obese tenderness + epigastric and Rt UQ no rebound Bs + EXT: Trace edema feet, 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 transplanted heart: [place] heart Associated angina: without angina Qualified Code(s): I25.10 - Atherosclerotic heart disease of [place] coronary artery without angina pectoris (3) HTN (hypertension) Assessment/Plan: Well controlled cont all home meds Code(s): I10 - ESSENTIAL (PRIMARY) HYPERTENSION Qualifiers: Hypertension type: essential hypertension Qualified Code(s): I10 - Essential (primary) hypertension (4) Transaminitis Assessment/Plan: C/O abd pain elevated TWBC now new elevated SGOT/SGPT and Alk Phosphate will F /U abd ultrasouind, Cefoxitine, NPO except meds and IV Hydration, consider GI consult F/U Lipase and Lfts. Code(s): R74.0 - NONSPEC ELEV OF LEVELS OF TRANSAMNS & LACTIC ACID DEHYDRGNSE (5) Anemia Assessment/Plan: chronic H/h stable Code(s): D64.9 - ANEMIA, UNSPECIFIED Qualifiers: Anemia type: unspecified type Qualified Code(s): D64.9 - Anemia, unspecified (6) Dementia Assessment/Plan: Cjhronic Code(s): F03.90 - UNSPECIFIED DEMENTIA WITHOUT BEHAVIORAL DISTURBANCE
[2018-01-17] MEDS ORDERED: D5-1/2NS+10 MEQ KCL - 10 MEQ/1,000 ML INFUS.BAG IV SCH (13:30)
[2018-01-17 14:44] LABS: MAGNESIUM 2.1 mg/dL (1.8-2.4); PHOSPHOROUS 2.3 mg/dL (2.5-4.9)
[2018-01-17] MEDS: CEFTRIAXONE 1 G/50 ML PREMIX 50 ML IVPB SCH (16:06)
--- NOTE | 2018-01-17 16:09 | PN ---
Progress Note, Physician History of Present Illness: Pt seen and examined at bedside. She is awake and appears comfortable. She denies shortness of breath. - Current Medication List Current Medications: Active Medications Albuterol Sulfate (Ventolin 0.083% Nebulizer Soln -) 1 amp NEB Q8H PRN PRN Reason: SHORT OF BREATH/WHEEZING Last Admin: 01/17/18 12:28 Dose: 1 amp Aspirin (Asa -) 81 mg PO DAILY [facility] Last Admin: 01/17/18 09:31 Dose: 81 mg Heparin Sodium (Porcine) (Heparin -) 5,000 unit SQ BID [facility] Last Admin: 01/17/18 09:31 Dose: 5,000 unit Metronidazole (Flagyl 500mg Premixed Ivpb -) 500 mg in 100 mls @ 100 mls/hr IVPB Q8H-IV [facility]EN[facility] CEFTRIAXONE 1 G/50 ML PREMIX (Ceftriaxone 1 Gm-D5w Bag) 50 mls @ 100 mls/hr IVPB DAILY [facility] Potassium Chloride 10 meq/ (Dextrose/Sodium Chloride) 1,005 mls @ 100 mls/hr IVPB Q10H BRENDA Lactobacillus Acidophilus (Bacid -) 1 tab PO DAILY [facility] Last Admin: 01/17/18 09:30 Dose: 1 tab Metoprolol Succinate (Toprol Xl -) 12.5 mg PO BID [facility] Last Admin: 01/17/18 09:30 Dose: 12.5 mg Multivitamins/Minerals/Vitamin C (Tab-A-Vit -) 1 tab PO DAILY [facility] Last Admin: 01/17/18 09:31 Dose: 1 tab Ranitidine HCl (Zantac -) 150 mg PO BID [facility] Last Admin: 01/17/18 09:31 Dose: 150 mg - Objective Vital Signs: Vital Signs Temperature 98.4 F 01/17/18 14:28 Pulse Rate 80 01/17/18 14:28 Respiratory Rate 18 01/17/18 14:28 Blood Pressure 144/74 01/17/18 14:28 O2 Sat by Pulse Oximetry (%) 100 01/17/18 09:00 Constitutional: Yes: Calm Eyes: Yes: Conjunctiva Clear HENT: Yes: Atraumatic Neck: Yes: Supple Cardiovascular: Yes: S1, S2 Respiratory: Yes: On Nasal O2 Gastrointestinal: Yes: Soft Genitourinary: Yes: WNL Musculoskeletal: Yes: WNL Edema: No Neurological: Yes: Oriented Psychiatric: Yes: Oriented Labs: CBC, BMP 01/17/18 06:10 01/17/18 06:10 Problem List - Problems (1) CRUZ (acute kidney injury) Code(s): N17.9 - ACUTE KIDNEY FAILURE, UNSPECIFIED (2) CAD (coronary artery disease) Code(s): I25.10 - ATHSCL HEART DISEASE OF [place] CORONARY ARTERY W/O ANG PCTRS Qualifiers: Coronary Disease-Associated Artery/Lesion type: [place] artery [place] vs. transplanted heart: [place] heart Associated angina: without angina Qualified Code(s): I25.10 - Atherosclerotic heart disease of [place] coronary artery without angina pectoris (3) COPD (chronic obstructive pulmonary disease) Code(s): J44.9 - CHRONIC OBSTRUCTIVE PULMONARY DISEASE, UNSPECIFIED Qualifiers: COPD type: unspecified COPD Qualified Code(s): J44.9 - Chronic obstructive pulmonary disease, unspecified (4) Generalized weakness Code(s): R53.1 - WEAKNESS (5) HTN (hypertension) Code(s): I10 - ESSENTIAL (PRIMARY) HYPERTENSION Qualifiers: Hypertension type: essential hypertension Qualified Code(s): I10 - Essential (primary) hypertension (6) Hyponatremia Code(s): E87.1 - HYPO-OSMOLALITY AND HYPONATREMIA (7) Lung cancer Code(s): C34.90 - MALIGNANT NEOPLASM OF UNSP PART OF UNSP BRONCHUS OR LUNG Qualifiers: Laterality: right Lung location: upper lobe of lung Qualified Code(s): C34.11 - Malignant neoplasm of upper lobe, right bronchus or lung Assessment/Plan Current Medications Generic Name Dose Route Start Last Admin Trade Name Freq PRN Reason Stop Dose Admin Albuterol Sulfate 1 amp 01/16/18 11:47 01/17/18 12:28 Ventolin 0.083% Nebulizer Soln - NEB 1 amp Q8H PRN Administration SHORT OF BREATH/WHEEZING Aspirin 81 mg 01/14/18 10:00 01/17/18 09:31 Asa - PO 81 mg DAILY BRENDA Administration Heparin Sodium (Porcine) 5,000 unit 01/13/18 22:00 01/17/18 09:31 Heparin - SQ 5,000 unit BID BRENDA Administration Metronidazole 500 mg in 100 mls @ 100 mls/hr 01/17/18 18:00 Flagyl 500mg Premixed Ivpb - IVPB Q8H-IV BRENDA CEFTRIAXONE 1 G/50 ML PREMIX 50 mls @ 100 mls/hr 01/17/18 15:15 Ceftriaxone 1 Gm-D5w Bag IVPB DAILY [facility] Potassium Chloride 10 meq/ 1,005 mls @ 100 mls/hr 01/17/18 15:30 Dextrose/Sodium Chloride IVPB Q10H BRENDA Lactobacillus Acidophilus 1 tab 01/15/18 10:30 01/17/18 09:30 Bacid - PO 1 tab DAILY BRENDA Administration Metoprolol Succinate 12.5 mg 01/14/18 22:00 01/17/18 09:30 Toprol Xl - PO 12.5 mg BID BRENDA Administration Multivitamins/Minerals/Vitamin C 1 tab 01/15/18 10:00 01/17/18 09:31 Tab-A-Vit - PO 1 tab DAILY BRENDA Administration Ranitidine HCl 150 mg 01/14/18 10:45 01/17/18 09:31 Zantac - PO 150 mg BID BRENDA Administration Impression 1. Hyponatremia 2. dehydration 3. CRUZ 4. HTN 5. COPD 6. lung cancer 7. gerd 8. UTI 9. small right renal cyst Plan - sodium is stable - renal function has stabilized - urine and blood cultures negative - cont current meds
[2018-01-17] MEDS: POTASSIUM CHLORIDE 10 MEQ in DEXTROSE 5%-0.45% SALINE 1,000 ML IVPB SCH (16:47)
[2018-01-17 18:02] LABS: BILIRUBIN,DIRECT 0.2 mg/dL (0.0-0.2); BILIRUBIN,TOTAL 0.4 mg/dL (0.2-1.0)
[2018-01-18] MEDS: POTASSIUM CHLORIDE 10 MEQ in DEXTROSE 5%-0.45% SALINE 1,000 ML IVPB SCH ×2 (03:46→11:53)
[2018-01-18] MEDS: INSULIN SLIDING SCALE (NOVOLOG) 1 VIAL SQ SCH ×3 (06:58→16:58)
[2018-01-18] MEDS: ALBUTEROL SO4 0.083% IH SOL 2.5 MG/3 ML VIAL.NEB. NEB PRN ×3 (07:48→20:41)
[2018-01-18 08:41] LABS: HEMATOCRIT 24.5 % (32.4-45.2); HEMOGLOBIN 8.5 GM/dL (10.7-15.3); MCHC 34.6 g/dl (32.0-36.0); MEAN CELL VOLUME 92.3 fl (80-96); PLATELET COUNT 190 K/MM3 (134-434); RBC 2.66 M/mm3 (3.60-5.2); RDW 15.9 % (11.6-15.6); WHITE BLOOD COUNT 16.8 K/mm3 (4.0-10.0)
[2018-01-18 09:00] LABS: ALBUMIN 1.8 g/dl (3.4-5.0); ALK PHOS 125 U/L (45-117); ANION GAP 9 (8-16); BILIRUBIN,TOTAL 0.5 mg/dL (0.2-1.0); BLOOD UREA NITROGEN 23 mg/dL (7-18); CHLORIDE 103 mmol/L (98-107); CO2 25 mmol/L (21-32); CREATININE 0.9 mg/dL (0.55-1.02); POTASSIUM 3.7 mmol/L (3.5-5.1); SGOT/AST 57 U/L (15-37); SGPT/ALT 143 U/L (12-78); SODIUM 137 mmol/L (136-145); TOT PROT 4.6 g/dl (6.4-8.2)
[2018-01-18 09:07] LABS: GLUCOSE,RANDOM 363 mg/dL (74-106)
[2018-01-18] MEDS ORDERED: CEFTRIAXONE 1 G/50 ML PREMIX 50 ML IVPB SCH (10:00)
[2018-01-18] MEDS ORDERED: PT OWN MED DRAWER 7, Y5N ONE (10:33)
[2018-01-18] MEDS: HEPARIN NA (PORCINE) 5,000 UNITS/ML 1ML VIAL SQ SCH ×2 (10:36→22:32)
[2018-01-18] MEDS: CEFTRIAXONE 1 G/50 ML PREMIX 50 ML IVPB SCH (10:36)
[2018-01-18] MEDS: LACTOBACILLUS ACIDOPHILUS 1 EACH TAB (FP) PO SCH (10:39)
[2018-01-18] MEDS: MULTIVITAMINS (DAILY MVI) TABLET (FP) PO SCH (10:39)
[2018-01-18] MEDS: metoPROLOL SUCCINATE 25 MG TAB.SR.24H (FP) PO SCH ×2 (10:40→21:12)
[2018-01-18] MEDS: RANITIDINE HCL 150 MG TABLET (FP) PO SCH ×2 (10:40→21:12)
[2018-01-18] MEDS: ASPIRIN 81 MG CHEWABLE TABLETS PO SCH (10:40)
[2018-01-18 11:02] LABS: PLATELET ESTIMATE NORMAL
--- NOTE | 2018-01-18 12:23 | PN ---
Progress Note, Physician Chief Complaint: No new complaints, remained confused at base line C/O Diffuse upper abdominal pain remained afebrile - Current Medication List Current Medications: Active Medications Albuterol Sulfate (Ventolin 0.083% Nebulizer Soln -) 1 amp NEB Q8H PRN PRN Reason: SHORT OF BREATH/WHEEZING Last Admin: 01/18/18 07:48 Dose: 1 amp Aspirin (Asa -) 81 mg PO DAILY [facility] Last Admin: 01/18/18 10:40 Dose: 81 mg Heparin Sodium (Porcine) (Heparin -) 5,000 unit SQ BID [facility] Last Admin: 01/18/18 10:36 Dose: 5,000 unit Metronidazole (Flagyl 500mg Premixed Ivpb -) 500 mg in 100 mls @ 100 mls/hr IVPB Q8H-IV [facility] Last Admin: 01/18/18 10:35 Dose: 100 mls/hr CEFTRIAXONE 1 G/50 ML PREMIX (Ceftriaxone 1 Gm-D5w Bag) 50 mls @ 100 mls/hr IVPB DAILY [facility] Last Admin: 01/18/18 10:36 Dose: 100 mls/hr Sodium Chloride (Normal Saline -) 1,000 mls @ 100 mls/hr IV [facility] Insulin Aspart (Novolog Vial Sliding Scale -) 1 vial SQ TIDAC BRENDA PRN Reason: Protocol Last Admin: 01/18/18 06:58 Dose: 12 units Lactobacillus Acidophilus (Bacid -) 1 tab PO DAILY [facility] Last Admin: 01/18/18 10:39 Dose: 1 tab Metoprolol Succinate (Toprol Xl -) 12.5 mg PO BID [facility] Last Admin: 01/18/18 10:40 Dose: 12.5 mg Multivitamins/Minerals/Vitamin C (Tab-A-Vit -) 1 tab PO DAILY [facility] Last Admin: 01/18/18 10:39 Dose: 1 tab Ranitidine HCl (Zantac -) 150 mg PO BID [facility] Last Admin: 01/18/18 10:40 Dose: 150 mg - Objective Vital Signs: Vital Signs Temperature 98 F 01/18/18 08:00 Pulse Rate 84 01/18/18 08:00 Respiratory Rate 20 01/18/18 08:00 Blood Pressure 131/52 01/18/18 08:00 O2 Sat by Pulse Oximetry (%) 99 01/18/18 08:58 lderly f confused, not in distress c/o abd pain HEENT: Mm Moist, anemia + CHEST: CTA B/L CVS: S1S2 R ABD: Obese, no tenderness + Bs + EXT: Trace edema feet, 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 transplanted heart: [place] heart Associated angina: without angina Qualified Code(s): I25.10 - Atherosclerotic heart disease of [place] coronary artery without angina pectoris (3) HTN (hypertension) Assessment/Plan: Well controlled cont all home meds Code(s): I10 - ESSENTIAL (PRIMARY) HYPERTENSION Qualifiers: Hypertension type: essential hypertension Qualified Code(s): I10 - Essential (primary) hypertension (4) Transaminitis Assessment/Plan: Improving LFT , Ultrasound inconplete study will rpt cont IV abx and IOV Hydration, resume diet once R/O acute cholycystitis Code(s): R74.0 - NONSPEC ELEV OF LEVELS OF TRANSAMNS & LACTIC ACID DEHYDRGNSE (5) Anemia Assessment/Plan: chronic H/h stable Code(s): D64.9 - ANEMIA, UNSPECIFIED Qualifiers: Anemia type: unspecified type Qualified Code(s): D64.9 - Anemia, unspecified (6) Dementia Assessment/Plan: Cjhronic Code(s): F03.90 - UNSPECIFIED DEMENTIA WITHOUT BEHAVIORAL DISTURBANCE
[2018-01-18] MEDS: SODIUM CHLORIDE 1,000 ML IV SCH (12:32)
[2018-01-18 14:08] LABS: SERUM IRON SATURATION 32 % (15-55); TOTAL IRON BINDING CAPACITY 133 ug/dL (250-450); UIBC 90 ug/dL (118-369)
--- NOTE | 2018-01-18 19:43 | PN ---
Progress Note, Physician History of Present Illness: Pt seen and examined at bedside. She is awake and appears comfortable. - Current Medication List Current Medications: Active Medications Albuterol Sulfate (Ventolin 0.083% Nebulizer Soln -) 1 amp NEB Q8H PRN PRN Reason: SHORT OF BREATH/WHEEZING Last Admin: 01/18/18 13:58 Dose: 1 amp Aspirin (Asa -) 81 mg PO DAILY [facility] Last Admin: 01/18/18 10:40 Dose: 81 mg Heparin Sodium (Porcine) (Heparin -) 5,000 unit SQ BID BRENDA Last Admin: 01/18/18 10:36 Dose: 5,000 unit Metronidazole (Flagyl 500mg Premixed Ivpb -) 500 mg in 100 mls @ 100 mls/hr IVPB Q8H-IV BRENDA Last Admin: 01/18/18 17:58 Dose: 100 mls/hr CEFTRIAXONE 1 G/50 ML PREMIX (Ceftriaxone 1 Gm-D5w Bag) 50 mls @ 100 mls/hr IVPB DAILY [facility] Last Admin: 01/18/18 10:36 Dose: 100 mls/hr Sodium Chloride (Normal Saline -) 1,000 mls @ 100 mls/hr IV ASDIR [facility] Last Admin: 01/18/18 12:32 Dose: 100 mls/hr Insulin Aspart (Novolog Vial Sliding Scale -) 1 vial SQ TIDAC BRENDA PRN Reason: Protocol Last Admin: 01/18/18 16:58 Dose: 8 units Lactobacillus Acidophilus (Bacid -) 1 tab PO DAILY [facility] Last Admin: 01/18/18 10:39 Dose: 1 tab Metoprolol Succinate (Toprol Xl -) 12.5 mg PO BID [facility] Last Admin: 01/18/18 10:40 Dose: 12.5 mg Multivitamins/Minerals/Vitamin C (Tab-A-Vit -) 1 tab PO DAILY [facility] Last Admin: 01/18/18 10:39 Dose: 1 tab Ranitidine HCl (Zantac -) 150 mg PO BID [facility] Last Admin: 01/18/18 10:40 Dose: 150 mg - Objective Vital Signs: Vital Signs Temperature 98.1 F 01/18/18 18:00 Pulse Rate 74 01/18/18 18:00 Respiratory Rate 20 01/18/18 18:00 Blood Pressure 144/63 01/18/18 18:00 O2 Sat by Pulse Oximetry (%) 99 01/18/18 08:58 Constitutional: Yes: Calm Eyes: Yes: Conjunctiva Clear HENT: Yes: Atraumatic Cardiovascular: Yes: S1, S2 Respiratory: Yes: CTA Bilaterally, On Nasal O2 Gastrointestinal: Yes: Soft Genitourinary: Yes: WNL Musculoskeletal: Yes: WNL Edema: No Neurological: Yes: Oriented Psychiatric: Yes: Oriented Labs: CBC, BMP 01/18/18 08:00 01/18/18 08:00 Problem List - Problems (1) CRUZ (acute kidney injury) Code(s): N17.9 - ACUTE KIDNEY FAILURE, UNSPECIFIED (2) CAD (coronary artery disease) Code(s): I25.10 - ATHSCL HEART DISEASE OF [place] CORONARY ARTERY W/O ANG PCTRS Qualifiers: Coronary Disease-Associated Artery/Lesion type: [place] artery [place] vs. transplanted heart: [place] heart Associated angina: without angina Qualified Code(s): I25.10 - Atherosclerotic heart disease of [place] coronary artery without angina pectoris (3) COPD (chronic obstructive pulmonary disease) Code(s): J44.9 - CHRONIC OBSTRUCTIVE PULMONARY DISEASE, UNSPECIFIED Qualifiers: COPD type: unspecified COPD Qualified Code(s): J44.9 - Chronic obstructive pulmonary disease, unspecified (4) Generalized weakness Code(s): R53.1 - WEAKNESS (5) HTN (hypertension) Code(s): I10 - ESSENTIAL (PRIMARY) HYPERTENSION Qualifiers: Hypertension type: essential hypertension Qualified Code(s): I10 - Essential (primary) hypertension (6) Hyponatremia Code(s): E87.1 - HYPO-OSMOLALITY AND HYPONATREMIA (7) Lung cancer Code(s): C34.90 - MALIGNANT NEOPLASM OF UNSP PART OF UNSP BRONCHUS OR LUNG Qualifiers: Laterality: right Lung location: upper lobe of lung Qualified Code(s): C34.11 - Malignant neoplasm of upper lobe, right bronchus or lung Assessment/Plan Current Medications Generic Name Dose Route Start Last Admin Trade Name Freq PRN Reason Stop Dose Admin Albuterol Sulfate 1 amp 01/16/18 11:47 01/18/18 13:58 Ventolin 0.083% Nebulizer Soln - NEB 1 amp Q8H PRN Administration SHORT OF BREATH/WHEEZING Aspirin 81 mg 01/14/18 10:00 01/18/18 10:40 Asa - PO 81 mg DAILY BRENDA Administration Heparin Sodium (Porcine) 5,000 unit 01/13/18 22:00 01/18/18 10:36 Heparin - SQ 5,000 unit BID BRENDA Administration Metronidazole 500 mg in 100 mls @ 100 mls/hr 01/17/18 18:00 01/18/18 17:58 Flagyl 500mg Premixed Ivpb - IVPB 100 mls/hr Q8H-IV BRENDA Administration CEFTRIAXONE 1 G/50 ML PREMIX 50 mls @ 100 mls/hr 01/17/18 15:15 01/18/18 10: 36 Ceftriaxone 1 Gm-D5w Bag IVPB 100 mls/hr DAILY [facility]EN[facility] Administration Sodium Chloride 1,000 mls @ 100 mls/hr 01/18/18 12:30 01/18/18 12:32 Normal Saline - IV 100 mls/hr ASDIR BRENDA Administration Insulin Aspart 1 vial 01/18/18 07:00 01/18/18 16:58 Novolog Vial Sliding Scale - SQ 8 units TIDAC BRENDA Administration Protocol Lactobacillus Acidophilus 1 tab 01/15/18 10:30 01/18/18 10:39 Bacid - PO 1 tab DAILY [facility]ENDA Administration Metoprolol Succinate 12.5 mg 01/14/18 22:00 01/18/18 10:40 Toprol Xl - PO 12.5 mg BID BRENDA Administration Multivitamins/Minerals/Vitamin C 1 tab 01/15/18 10:00 01/18/18 10:39 Tab-A-Vit - PO 1 tab DAILY BRENDA Administration Ranitidine HCl 150 mg 01/14/18 10:45 01/18/18 10:40 Zantac - PO 150 mg BID BRENDA Administration Impression 1. Hyponatremia 2. dehydration 3. CRUZ 4. HTN 5. COPD 6. lung cancer 7. gerd 8. UTI 9. small right renal cyst Plan - sodium remains stable - renal function improved, but is still worse from her labs from a few years ago - will call for last outpt bmp - avoid nsaids - cont current meds
--- NOTE | 2018-01-18 20:59 | PN ---
Progress Note, Physician Chief Complaint: Not in distress History of Present Illness: Patient was seen and examined. Awake and alert. Chart was reviewed Denies chest pain, SOB or palpitations - Current Medication List Current Medications: Active Medications Albuterol Sulfate (Ventolin 0.083% Nebulizer Soln -) 1 amp NEB Q8H PRN PRN Reason: SHORT OF BREATH/WHEEZING Last Admin: 01/18/18 20:41 Dose: 1 amp Aspirin (Asa -) 81 mg PO DAILY [facility] Last Admin: 01/18/18 10:40 Dose: 81 mg Heparin Sodium (Porcine) (Heparin -) 5,000 unit SQ BID [facility] Last Admin: 01/18/18 10:36 Dose: 5,000 unit Metronidazole (Flagyl 500mg Premixed Ivpb -) 500 mg in 100 mls @ 100 mls/hr IVPB Q8H-IV [facility] Last Admin: 01/18/18 17:58 Dose: 100 mls/hr CEFTRIAXONE 1 G/50 ML PREMIX (Ceftriaxone 1 Gm-D5w Bag) 50 mls @ 100 mls/hr IVPB DAILY [facility] Last Admin: 01/18/18 10:36 Dose: 100 mls/hr Sodium Chloride (Normal Saline -) 1,000 mls @ 100 mls/hr IV ASDIR [facility] Last Admin: 01/18/18 12:32 Dose: 100 mls/hr Insulin Aspart (Novolog Vial Sliding Scale -) 1 vial SQ TIDAC [facility] PRN Reason: Protocol Last Admin: 01/18/18 16:58 Dose: 8 units Lactobacillus Acidophilus (Bacid -) 1 tab PO DAILY [facility] Last Admin: 01/18/18 10:39 Dose: 1 tab Metoprolol Succinate (Toprol Xl -) 12.5 mg PO BID [facility] Last Admin: 01/18/18 10:40 Dose: 12.5 mg Multivitamins/Minerals/Vitamin C (Tab-A-Vit -) 1 tab PO DAILY [facility] Last Admin: 01/18/18 10:39 Dose: 1 tab Ranitidine HCl (Zantac -) 150 mg PO BID [facility] Last Admin: 01/18/18 10:40 Dose: 150 mg - Objective Vital Signs: Vital Signs Temperature 98.1 F 01/18/18 18:00 Pulse Rate 74 01/18/18 18:00 Respiratory Rate 20 01/18/18 18:00 Blood Pressure 144/63 01/18/18 18:00 O2 Sat by Pulse Oximetry (%) 99 01/18/18 08:58 Constitutional: Yes: Well Nourished Eyes: Yes: PERRL HENT: Yes: Atraumatic Neck: Yes: Supple Cardiovascular: Yes: Regular Rate and Rhythm, S1, S2 Respiratory: Yes: CTA Bilaterally Gastrointestinal: Yes: Normal Bowel Sounds, Soft. No: Tenderness Edema: No Labs: CBC, BMP 01/18/18 08:00 01/18/18 08:00 Problem List - Problems (1) CRUZ (acute kidney injury) Code(s): N17.9 - ACUTE KIDNEY FAILURE, UNSPECIFIED (2) CAD (coronary artery disease) Code(s): I25.10 - ATHSCL HEART DISEASE OF [place] CORONARY ARTERY W/O ANG PCTRS Qualifiers: Coronary Disease-Associated Artery/Lesion type: [place] artery [place] vs. transplanted heart: [place] heart Associated angina: without angina Qualified Code(s): I25.10 - Atherosclerotic heart disease of [place] coronary artery without angina pectoris (3) COPD (chronic obstructive pulmonary disease) Code(s): J44.9 - CHRONIC OBSTRUCTIVE PULMONARY DISEASE, UNSPECIFIED Qualifiers: COPD type: unspecified COPD Qualified Code(s): J44.9 - Chronic obstructive pulmonary disease, unspecified (4) GERD (gastroesophageal reflux disease) Code(s): K21.9 - GASTRO-ESOPHAGEAL REFLUX DISEASE WITHOUT ESOPHAGITIS Qualifiers: Esophagitis presence: without esophagitis Qualified Code(s): K21.9 - Gastro -esophageal reflux disease without esophagitis (5) Generalized weakness Code(s): R53.1 - WEAKNESS (6) HTN (hypertension) Code(s): I10 - ESSENTIAL (PRIMARY) HYPERTENSION Qualifiers: Hypertension type: essential hypertension Qualified Code(s): I10 - Essential (primary) hypertension (7) Hypokalemia Code(s): E87.6 - HYPOKALEMIA (8) Hyponatremia Code(s): E87.1 - HYPO-OSMOLALITY AND HYPONATREMIA (9) Leukocytosis Code(s): D72.829 - ELEVATED WHITE BLOOD CELL COUNT, UNSPECIFIED Qualifiers: Leukocytosis type: unspecified Qualified Code(s): D72.829 - Elevated white blood cell count, unspecified (10) Lung cancer Code(s): C34.90 - MALIGNANT NEOPLASM OF UNSP PART OF UNSP BRONCHUS OR LUNG Qualifiers: Laterality: right Lung location: upper lobe of lung Qualified Code(s): C34.11 - Malignant neoplasm of upper lobe, right bronchus or lung Assessment/Plan 1. Lethargy referable to hyponatremia and pre-renal acute on CKD improved 2. UTI 3. Right lung adenocarcinoma s/p resection 4. COPD 5. CAD angina pectoris 6. Systolic murmur consistent with mitral valve disease 7. HTN 8. Thrombocytopenia 9. Hypokalemia improved PLAN: 1. Continue Toprol XL 12.5 BID, ASA 81 QD 2. Bronchodilator and O2 as needed 3. IVF, empiric antibiotic, monitor NA level and renal function and replete K as needed 4. DVT and GI prophylaxis Further plans are to follow Andrew Randhawa MD
[2018-01-19] MEDS: SODIUM CHLORIDE 1,000 ML IV SCH (03:36)
[2018-01-19] MEDS ORDERED: INSULIN (NOVOLOG) ASPART 100 UNITS/ML 10ML VIAL ONE ×2 (06:30→12:09)
[2018-01-19] MEDS: INSULIN SLIDING SCALE (NOVOLOG) 1 VIAL SQ SCH ×3 (06:32→17:00)
[2018-01-19] MEDS: ALBUTEROL SO4 0.083% IH SOL 2.5 MG/3 ML VIAL.NEB. NEB PRN ×3 (07:15→21:16)
[2018-01-19 07:49] LABS: HEMATOCRIT 23.3 % (32.4-45.2); HEMOGLOBIN 8.1 GM/dL (10.7-15.3); MCHC 34.5 g/dl (32.0-36.0); MEAN CELL VOLUME 92.8 fl (80-96); MEAN PLT VOLUME 6.7 fl (7.5-11.1); PLATELET COUNT 220 K/MM3 (134-434); RBC 2.51 M/mm3 (3.60-5.2); RDW 15.8 % (11.6-15.6); WHITE BLOOD COUNT 14.9 K/mm3 (4.0-10.0)
[2018-01-19 08:17] LABS: ALBUMIN 1.8 g/dl (3.4-5.0); ANION GAP 9 (8-16); BLOOD UREA NITROGEN 16 mg/dL (7-18); CALCIUM 7.5 mg/dL (8.5-10.1); CHLORIDE 109 mmol/L (98-107); CO2 26 mmol/L (21-32); GLUCOSE,RANDOM 215 mg/dL (74-106); POTASSIUM 4.1 mmol/L (3.5-5.1); SODIUM 144 mmol/L (136-145)
[2018-01-19 08:20] LABS: ALK PHOS 119 U/L (45-117); BILIRUBIN,TOTAL 0.6 mg/dL (0.2-1.0); CREATININE 0.6 mg/dL (0.55-1.02); SGOT/AST 30 U/L (15-37); SGPT/ALT 104 U/L (12-78); TOT PROT 4.9 g/dl (6.4-8.2)
--- NOTE | 2018-01-19 09:08 | CON.GI ---
Consult Consult Specialty:: GI: Dr. Ruth covering for Dr. Bennett Referred by:: Dr. Bernabe Parra Reason for Consultation:: abnormal liver chemistries - History of Present Illness Chief Complaint: I felt weak and couldn't walk History of Present Illness: 82F admitted through [facility] ER 01/13/18 at request of her PMD Dr. Parra for evaluation of weakness, chills and inability to ambulate. Ms. Wagoner states that this occurred after she had a contrast CT scan of her chest performed the week prior to her admission. She was noted to have elevated creatinine, a leukocytosis (predominantly neutrophils), hyperglycemia (states that her blood glucose was elevated on outpatient blood work performed by Dr. Owens prior to her admission but "OK" from bloodwork performed by Dr. Parra prior to that) hyponatremia with sodium of 121, liver chemistries on admission AST: 29 ALT: 43 ALP: 165 TB: 0.8 ALB: 2.5. Her transaminases becky as did her alkaline phosphatase however are now in a downward trend. She was noted to be anemic as well and guaiac positive. She was evaluated by infectious disease, cardiology and nephrology. She underwent abdominal US that revealed a borderline thickened gallbladder wall, nodular appearing liver c/w cirrhosis, 7mm CBD and gallstones/sludge. She was formerly a heavy drinker but denies any alcohol use for many years. She denies any recent travel, known history of liver disease. there is no family history of liver disease, colorectal cancer or other GI malignancy. She has never had an upper endoscopy or colonoscopy. - History Source History Provided By: Patient, Medical Record Limitations to Obtaining History: Poor Historian (hesitant to answer questions at times) - Past Medical History Cardio/Vascular: Yes: CAD (Angina), HTN Pulmonary: Yes: Cancer (right lung s/p resection), COPD, Pulmonary Embolus Gastrointestinal: Yes: GERD - Past Surgical History Past Surgical History: Yes: Thoracotomy (lung lobectomy) Additional Surgical History: left knee surgery - Alcohol/Substance Use Hx Alcohol Use: Yes (previous) History of Substance Use: reports: None - Smoking History Smoking history: Former smoker Have you smoked in the past 12 months: No Aproximately how many cigarettes per day: 0 - Social History Usual Living Arrangement: With Spouse ADL: Independent Occupation: Retired primary school teacher Place of : [facility] History of Recent Travel: No Home Medications - Allergies Allergies/Adverse Reactions: Allergies Allergy/AdvReac Type Severity Reaction Status Date / Time No Known Drug Allergies Allergy Verified 01/13/18 16:13 SEASONAL Allergy Uncoded 01/13/18 16:13 - Home Medications Home Medications: Ambulatory Orders Aspirin [ASA -] 81 mg PO DAILY #0 tab.chew 07/18/13 Metoprolol Succinate [Toprol XL -] 12.5 mg PO BID #0 tab.sr.24h 07/18/13 Multivitamin [Multivitamins] 1 each PO DAILY #0 capsule 07/18/13 Loratadine/Pseudoephedrine Sul [Claritin-D 24 Hour Tablet] 1 tab PO DAILY Ranitidine HCl [Zantac] 150 mg PO BID #0 05/13/14 Alprazolam 0.5 mg PO DAILY PRN 01/13/18 Family Disease History - Family Disease History Family Disease History: CA: Brother (2: 1 : Diabetic complications, 1 Alive : Lung Ca), Other: Father (: 100), Mother (: 64: BCA), Brother, Sister ( 1: : 67: BCA), Son (2, healthy), Daughter (1, Alive: Multiple Myeloma) Other Family History: No family history of colorectal cancer Review of Systems - Review of Systems Constitutional: reports: Chills, Lethargy, Loss of Appetite, Weakness Cardiovascular: denies: Chest Pain, Shortness of Breath Respiratory: denies: Cough Gastrointestinal: denies: Abdominal Pain, Constipation, Diarrhea, Melena, Nausea , Rectal Bleeding, Vomiting Physical Exam-GI Vital Signs: Vital Signs Temperature 97.9 F 01/19/18 07:41 Pulse Rate 72 01/19/18 07:41 Respiratory Rate 18 01/19/18 07:41 Blood Pressure 143/65 01/19/18 07:41 O2 Sat by Pulse Oximetry (%) 99 01/18/18 21:00 Constitutional: Yes: Calm Eyes: No: Sclera Icterus Cardiovascular: Yes: Regular Rate and Rhythm, Murmur (+ 2/6 holosystolic murmur at the LSB) Respiratory: Yes: Rhonchi (right lung base) Gastrointestinal Inspection: No: Distention, Scars ...Auscultate: Yes: Normoactive Bowel Sounds ...Palpate: Yes: Guarding (Voluntary guarding in the RUQ), Soft, Tenderness ( TTP RUQ). No: Splenomegaly, Tenderness, Rebound ...Percussion: No: Tympanitic ...Rectal Exam: Yes: Other (Refused by patient) Edema: No (No LE edema) Neurological: Yes: Alert, Oriented. No: [place] Labs: CBC, BMP 01/19/18 07:34 01/19/18 07:34 Imaging - Results Ultrasound: Report Reviewed Problem List - Problems (1) Abnormal liver enzymes Assessment/Plan: With TTP in the RUQ. Given leukocytosis on admission, neutrophilia, elevated inflammatory markers, US findings and RUQ tenderness on exam, ? inflammatory process such as cholecystitis precipitated by dehydration would need to be considered in the differential. I have ordered An MRCP/MRI of the abdomen as well as HIDA scan Hepatitis A/B/C serologies were drawn as well Given US findings, it appears as though Ms. Wagoner may have a component of chronic liver disease as well and was a heavy alcohol drinker in the last. Ordered coags and she will need Q 6 month abdominal US to screen for HCC. On IV Abx and clear diet Code(s): R74.8 - ABNORMAL LEVELS OF OTHER SERUM ENZYMES
--- NOTE | 2018-01-19 09:29 | PN ---
Progress Note, Physician Chief Complaint: Pt lying in bed in no acute distress. Denies any chest discomfort, sob, n/v/d, or fever/chills - Current Medication List Current Medications: Active Medications Albuterol Sulfate (Ventolin 0.083% Nebulizer Soln -) 1 amp NEB Q8H PRN PRN Reason: SHORT OF BREATH/WHEEZING Last Admin: 01/19/18 07:15 Dose: 1 amp Aspirin (Asa -) 81 mg PO DAILY [facility] Last Admin: 01/18/18 10:40 Dose: 81 mg Heparin Sodium (Porcine) (Heparin -) 5,000 unit SQ BID [facility] Last Admin: 01/18/18 22:32 Dose: 5,000 unit Metronidazole (Flagyl 500mg Premixed Ivpb -) 500 mg in 100 mls @ 100 mls/hr IVPB Q8H-IV [facility] Last Admin: 01/19/18 01:41 Dose: 100 mls/hr CEFTRIAXONE 1 G/50 ML PREMIX (Ceftriaxone 1 Gm-D5w Bag) 50 mls @ 100 mls/hr IVPB DAILY [facility] Last Admin: 01/18/18 10:36 Dose: 100 mls/hr Sodium Chloride (Normal Saline -) 1,000 mls @ 100 mls/hr IV ASDIR [facility] Last Admin: 01/19/18 03:36 Dose: 100 mls/hr Insulin Aspart (Novolog Vial Sliding Scale -) 1 vial SQ TIDAC [facility] PRN Reason: Protocol Last Admin: 01/19/18 06:32 Dose: 4 units Lactobacillus Acidophilus (Bacid -) 1 tab PO DAILY [facility] Last Admin: 01/18/18 10:39 Dose: 1 tab Metoprolol Succinate (Toprol Xl -) 12.5 mg PO BID [facility] Last Admin: 01/18/18 21:12 Dose: Not Given Multivitamins/Minerals/Vitamin C (Tab-A-Vit -) 1 tab PO DAILY [facility] Last Admin: 01/18/18 10:39 Dose: 1 tab Pantoprazole Sodium (Protonix -) 20 mg PO DAILY [facility] - Objective Vital Signs: Vital Signs Temperature 97.9 F 01/19/18 07:41 Pulse Rate 72 01/19/18 07:41 Respiratory Rate 18 01/19/18 07:41 Blood Pressure 143/65 01/19/18 07:41 O2 Sat by Pulse Oximetry (%) 99 01/19/18 09:00 Constitutional: Yes: Well Nourished, No Distress Cardiovascular: Yes: WNL, Regular Rate and Rhythm, Murmur. No: Bruit, Gallop, Rub Respiratory: Yes: Regular, On Nasal O2, Rales (bibasilar). No: Rhonchi, SOB, Tachypnea Gastrointestinal: Yes: Normal Bowel Sounds, Soft, Abdomen, Obese, Tenderness ( ruq,rlq). No: Distention Genitourinary: Yes: WNL Edema: No Neurological: Yes: WNL, Alert, Oriented Psychiatric: Yes: WNL, Alert, Oriented Labs: CBC, BMP 01/19/18 07:34 01/19/18 07:34 Problem List - Problems (1) Hyponatremia Code(s): E87.1 - HYPO-OSMOLALITY AND HYPONATREMIA (2) UTI (urinary tract infection) Code(s): N39.0 - URINARY TRACT INFECTION, SITE NOT SPECIFIED Qualifiers: Hematuria presence: without hematuria (3) Leukocytosis Code(s): D72.829 - ELEVATED WHITE BLOOD CELL COUNT, UNSPECIFIED Qualifiers: Leukocytosis type: unspecified Qualified Code(s): D72.829 - Elevated white blood cell count, unspecified (4) CRUZ (acute kidney injury) Code(s): N17.9 - ACUTE KIDNEY FAILURE, UNSPECIFIED (5) Generalized weakness Code(s): R53.1 - WEAKNESS (6) HTN (hypertension) Code(s): I10 - ESSENTIAL (PRIMARY) HYPERTENSION Qualifiers: Hypertension type: essential hypertension Qualified Code(s): I10 - Essential (primary) hypertension (7) Lung cancer Code(s): C34.90 - MALIGNANT NEOPLASM OF UNSP PART OF UNSP BRONCHUS OR LUNG Qualifiers: Laterality: right Lung location: upper lobe of lung Qualified Code(s): C34.11 - Malignant neoplasm of upper lobe, right bronchus or lung (8) DVT prophylaxis Code(s): [id number] - (9) CAD (coronary artery disease) Code(s): I25.10 - ATHSCL HEART DISEASE OF [place] CORONARY ARTERY W/O ANG PCTRS Qualifiers: Coronary Disease-Associated Artery/Lesion type: [place] artery [place] vs. transplanted heart: [place] heart Associated angina: without angina Qualified Code(s): I25.10 - Atherosclerotic heart disease of [place] coronary artery without angina pectoris (10) GERD (gastroesophageal reflux disease) Code(s): K21.9 - GASTRO-ESOPHAGEAL REFLUX DISEASE WITHOUT ESOPHAGITIS Qualifiers: Esophagitis presence: without esophagitis Qualified Code(s): K21.9 - Gastro -esophageal reflux disease without esophagitis (11) COPD (chronic obstructive pulmonary disease) Code(s): J44.9 - CHRONIC OBSTRUCTIVE PULMONARY DISEASE, UNSPECIFIED Qualifiers: COPD type: unspecified COPD Qualified Code(s): J44.9 - Chronic obstructive pulmonary disease, unspecified (12) History of alcohol abuse Code(s): Z87.898 - PERSONAL HISTORY OF OTHER SPECIFIED CONDITIONS (13) Hypokalemia Code(s): E87.6 - HYPOKALEMIA (14) Hypophosphatemia Code(s): E83.39 - OTHER DISORDERS OF PHOSPHORUS METABOLISM (15) Anemia Code(s): D64.9 - ANEMIA, UNSPECIFIED Qualifiers: Anemia type: unspecified type Qualified Code(s): D64.9 - Anemia, unspecified (16) Abnormal liver enzymes Code(s): R74.8 - ABNORMAL LEVELS OF OTHER SERUM ENZYMES (17) Transaminitis Code(s): R74.0 - NONSPEC ELEV OF LEVELS OF TRANSAMNS & LACTIC ACID DEHYDRGNSE (18) Chronic liver disease Code(s): K76.9 - LIVER DISEASE, UNSPECIFIED (19) Acute hyperglycemia Code(s): R73.9 - HYPERGLYCEMIA, UNSPECIFIED (20) SIRS (systemic inflammatory response syndrome) Code(s): R65.10 - SIRS OF NON-INFECTIOUS ORIGIN W/O ACUTE ORGAN DYSFUNCTION Assessment/Plan (1) Hyponatremia Assessment/Plan: hypovolemic/hypotonic hyponatremia resolved Nephrology assistance appreciated Code(s): E87.1 - HYPO-OSMOLALITY AND HYPONATREMIA (2) UTI (urinary tract infection) Assessment/Plan: UA+, +leukocytosis , left shift UC neg ID consulted pt started on ceftin x 5 days will monitor Code(s): N39.0 - URINARY TRACT INFECTION, SITE NOT SPECIFIED Qualifiers: Hematuria presence: without hematuria (3) Leukocytosis Assessment/Plan: uti, US possible cholecystitis, unclear cause crp/esr elevated blood cultures neg ceftin x 5 days per ID ID consult appreciated Code(s): D72.829 - ELEVATED WHITE BLOOD CELL COUNT, UNSPECIFIED Qualifiers: Leukocytosis type: unspecified Qualified Code(s): D72.829 - Elevated white blood cell count, unspecified (4) CRUZ (acute kidney injury) Assessment/Plan: improved will monitor Code(s): N17.9 - ACUTE KIDNEY FAILURE, UNSPECIFIED (5) Generalized weakness Assessment/Plan: improving PT Code(s): R53.1 - WEAKNESS (6) HTN (hypertension) Assessment/Plan: controlled allow permissive htn in the setting of hypovolemia metoprolol per parameters Code(s): I10 - ESSENTIAL (PRIMARY) HYPERTENSION Qualifiers: Hypertension type: essential hypertension Qualified Code(s): I10 - Essential (primary) hypertension (7) Lung cancer Assessment/Plan: s/p left lobe resection last CT without changes followed by outpt Onc consult appreciated Code(s): C34.90 - MALIGNANT NEOPLASM OF UNSP PART OF UNSP BRONCHUS OR LUNG Qualifiers: Laterality: right Lung location: upper lobe of lung Qualified Code(s): C34.11 - Malignant neoplasm of upper lobe, right bronchus or lung (8) DVT prophylaxis Assessment/Plan: Heparin SQ SCDs Code(s): [id number] - (9) CAD (coronary artery disease) Assessment/Plan: stable ekg reviewed continue aspirin, metoprolol followed by as outpatient Code(s): I25.10 - ATHSCL HEART DISEASE OF [place] CORONARY ARTERY W/O ANG PCTRS Qualifiers: Coronary Disease-Associated Artery/Lesion type: [place] artery [place] vs. transplanted heart: [place] heart Associated angina: without angina Qualified Code(s): I25.10 - Atherosclerotic heart disease of [place] coronary artery without angina pectoris (10) GERD (gastroesophageal reflux disease) Assessment/Plan: chronic protonix Code(s): K21.9 - GASTRO-ESOPHAGEAL REFLUX DISEASE WITHOUT ESOPHAGITIS Qualifiers: Esophagitis presence: without esophagitis Qualified Code(s): K21.9 - Gastro -esophageal reflux disease without esophagitis (11) COPD (chronic obstructive pulmonary disease) Assessment/Plan: stable Code(s): J44.9 - CHRONIC OBSTRUCTIVE PULMONARY DISEASE, UNSPECIFIED Qualifiers: COPD type: unspecified COPD Qualified Code(s): J44.9 - Chronic obstructive pulmonary disease, unspecified (12) History of alcohol abuse Assessment/Plan: stable reports hasn't drank for years Code(s): Z87.898 - PERSONAL HISTORY OF OTHER SPECIFIED CONDITIONS (13) Hypokalemia Assessment/Plan: improved Code(s): E87.6 - HYPOKALEMIA (14) Hypophosphatemia Assessment/Plan: improved Code(s): E83.39 - OTHER DISORDERS OF PHOSPHORUS METABOLISM (15) Anemia Assessment/Plan: h/h slowly trending down possibly secondary to inflammation/ chronic disease low retic count- bone marrow suppression? hematology recs appreciated iron panel reviewed hemeoccult positive GI consulted EGD/Colonoscopy option when pt ready will monitor Code(s): D64.9 - ANEMIA, UNSPECIFIED Qualifiers: Anemia type: other cause (16) Abnormal liver enzymes Assessment/Plan: improving, ruq/rlq tenderness on palpation abd US possible cholecystitis/lithiasis GI consult appreciated MRCP/HIDA pending Code(s): R74.8 - ABNORMAL LEVELS OF OTHER SERUM ENZYMES (17) Transaminitis Assessment/Plan: improving clear liquids will monitor Code(s): R74.0 - NONSPEC ELEV OF LEVELS OF TRANSAMNS & LACTIC ACID DEHYDRGNSE (18) Chronic liver disease Assessment/Plan: cirrhotic changes on US alcoholic liver disease GI consult appreciated repeat abd US in 6 months outpt Code(s): K76.9 - LIVER DISEASE, UNSPECIFIED (19) Acute hyperglycemia Assessment/Plan: in the setting of acute inflammatory response, unclear etiology r/o pancreatitis lipase/amylase ordered insulin sliding scale BGM hga1c ordered, however this is not likely dm2 Code(s): R73.9 - HYPERGLYCEMIA, UNSPECIFIED (20) SIRS (systemic inflammatory response syndrome) Assessment/Plan: improving tachy, leukocytosis on admission, ua+ however urine culture/blood cultures/chest xray neg Code(s): R65.10 - SIRS OF NON-INFECTIOUS ORIGIN W/O ACUTE ORGAN DYSFUNCTION Dispo: SNF
[2018-01-19] MEDS ORDERED: SODIUM CHLORIDE 1,000 ML IV SCH (10:00)
[2018-01-19] MEDS ORDERED: PT OWN MED DRAWER 7, Y5N ONE ×2 (10:09→16:22)
[2018-01-19] MEDS: metoPROLOL SUCCINATE 25 MG TAB.SR.24H (FP) PO SCH ×2 (10:11→22:29)
[2018-01-19] MEDS: CEFTRIAXONE 1 G/50 ML PREMIX 50 ML IVPB SCH (10:11)
[2018-01-19 11:00] LABS: MACROCYTOSIS 1+
[2018-01-19] MEDS: HEPARIN NA (PORCINE) 5,000 UNITS/ML 1ML VIAL SQ SCH ×2 (11:00→21:34)
--- NOTE | 2018-01-19 11:39 | PN ---
Progress Note, Physician Chief Complaint: ID Ceftriaxone NO complaints - Current Medication List Current Medications: Active Medications Albuterol Sulfate (Ventolin 0.083% Nebulizer Soln -) 1 amp NEB Q8H PRN PRN Reason: SHORT OF BREATH/WHEEZING Last Admin: 01/19/18 07:15 Dose: 1 amp Aspirin (Asa -) 81 mg PO DAILY [facility] Last Admin: 01/18/18 10:40 Dose: 81 mg Heparin Sodium (Porcine) (Heparin -) 5,000 unit SQ BID [facility] Last Admin: 01/18/18 22:32 Dose: 5,000 unit Metronidazole (Flagyl 500mg Premixed Ivpb -) 500 mg in 100 mls @ 100 mls/hr IVPB Q8H-IV [facility] Last Admin: 01/19/18 10:11 Dose: 100 mls/hr CEFTRIAXONE 1 G/50 ML PREMIX (Ceftriaxone 1 Gm-D5w Bag) 50 mls @ 100 mls/hr IVPB DAILY [facility] Last Admin: 01/19/18 10:11 Dose: 100 mls/hr Sodium Chloride (Normal Saline -) 1,000 mls @ 42 mls/hr IV ASDIR REPLACED BY [facility] Last Admin: 01/19/18 10:04 Dose: Not Given Insulin Aspart (Novolog Vial Sliding Scale -) 1 vial SQ TIDAC REPLACED BY [facility] PRN Reason: Protocol Last Admin: 01/19/18 06:32 Dose: 4 units Lactobacillus Acidophilus (Bacid -) 1 tab PO DAILY [facility] Last Admin: 01/18/18 10:39 Dose: 1 tab Metoprolol Succinate (Toprol Xl -) 12.5 mg PO BID [facility] Last Admin: 01/19/18 10:11 Dose: 12.5 mg Multivitamins/Minerals/Vitamin C (Tab-A-Vit -) 1 tab PO DAILY [facility] Last Admin: 01/18/18 10:39 Dose: 1 tab Pantoprazole Sodium (Protonix -) 20 mg PO DAILY [facility] - Objective Vital Signs: Vital Signs Temperature 97.9 F 01/19/18 07:41 Pulse Rate 72 01/19/18 07:41 Respiratory Rate 18 01/19/18 07:41 Blood Pressure 143/65 01/19/18 07:41 O2 Sat by Pulse Oximetry (%) 99 01/19/18 09:00 Constitutional: Yes: Well Nourished, No Distress Cardiovascular: Yes: Regular Rate and Rhythm, S1, S2 Respiratory: Yes: WNL, Regular, CTA Bilaterally Gastrointestinal: Yes: Soft. No: Tenderness, Tenderness, Rebound Edema: No Labs: CBC, BMP 01/19/18 07:34 01/19/18 07:34 Problem List - Problems (1) CRUZ (acute kidney injury) Code(s): N17.9 - ACUTE KIDNEY FAILURE, UNSPECIFIED (2) Lung cancer Code(s): C34.90 - MALIGNANT NEOPLASM OF UNSP PART OF UNSP BRONCHUS OR LUNG Qualifiers: Laterality: right Lung location: upper lobe of lung Qualified Code(s): C34.11 - Malignant neoplasm of upper lobe, right bronchus or lung (3) UTI (urinary tract infection) Code(s): N39.0 - URINARY TRACT INFECTION, SITE NOT SPECIFIED Qualifiers: Hematuria presence: without hematuria Assessment/Plan Microbiology 01/14/18 16:20 Urine - Urine - Catheterized Urine Culture - Final 01/15/18 10:20 Blood - Peripheral Venous Blood Culture - Preliminary NO GROWTH OBTAINED AFTER 96 HOURS, INCUBATION TO CONTINUE FOR 1 DAYS. Laboratory Tests 01/14/18 01/19/18 06:02 07:34 WBC 14.9 H Hgb 8.1 L Hct 23.3 L Plt Count 220 Neutrophils % (Manual) 78.0 Band Neutrophils % 5.0 Lymphocytes % (Manual) 3.0 L D Monocytes % (Manual) 6 D Ur Leukocyte Esterase 3+ H Urine WBC (Auto) 623 Urine Bacteria Many Assessment Urinary retension with UTI suspected based on admitting U/A culture did not grow however Plan Would stop IV antibiotic and give po Ceftin 500mg bid 5 days Mariya HENDERSON
--- NOTE | 2018-01-19 13:00 | PN ---
Progress Note, Physician History of Present Illness: Resting comfortably. Denies abd pain, HIDA scan and MRCP only shows cholelithiasis and sludge without acute cholecystitis, choledocholithiasis or biliary ductal dilatation. - Current Medication List Current Medications: Active Medications Albuterol Sulfate (Ventolin 0.083% Nebulizer Soln -) 1 amp NEB Q8H PRN PRN Reason: SHORT OF BREATH/WHEEZING Last Admin: 01/19/18 07:15 Dose: 1 amp Aspirin (Asa -) 81 mg PO DAILY [facility] Last Admin: 01/18/18 10:40 Dose: 81 mg Cefuroxime Axetil (Ceftin -) 500 mg PO BID [facility] Heparin Sodium (Porcine) (Heparin -) 5,000 unit SQ BID [facility] Last Admin: 01/18/18 22:32 Dose: 5,000 unit Sodium Chloride (Normal Saline -) 1,000 mls @ 42 mls/hr IV ASDIR [facility] Last Admin: 01/19/18 10:04 Dose: Not Given Insulin Aspart (Novolog Vial Sliding Scale -) 1 vial SQ TIDAC [facility] PRN Reason: Protocol Last Admin: 01/19/18 12:12 Dose: 12 units Lactobacillus Acidophilus (Bacid -) 1 tab PO DAILY [facility] Last Admin: 01/18/18 10:39 Dose: 1 tab Metoprolol Succinate (Toprol Xl -) 12.5 mg PO BID [facility] Last Admin: 01/19/18 10:11 Dose: 12.5 mg Multivitamins/Minerals/Vitamin C (Tab-A-Vit -) 1 tab PO DAILY [facility] Last Admin: 01/18/18 10:39 Dose: 1 tab Pantoprazole Sodium (Protonix -) 20 mg PO DAILY [facility] - Objective Vital Signs: Vital Signs Temperature 97.9 F 01/19/18 07:41 Pulse Rate 72 01/19/18 07:41 Respiratory Rate 18 01/19/18 07:41 Blood Pressure 143/65 01/19/18 07:41 O2 Sat by Pulse Oximetry (%) 99 01/19/18 09:00 Labs: CBC, BMP 01/19/18 07:34 01/19/18 07:34 Problem List - Problems (1) CAD (coronary artery disease) Code(s): I25.10 - ATHSCL HEART DISEASE OF [place] CORONARY ARTERY W/O ANG PCTRS Qualifiers: Coronary Disease-Associated Artery/Lesion type: [place] artery [place] vs. transplanted heart: [place] heart Associated angina: without angina Qualified Code(s): I25.10 - Atherosclerotic heart disease of [place] coronary artery without angina pectoris (2) COPD (chronic obstructive pulmonary disease) Code(s): J44.9 - CHRONIC OBSTRUCTIVE PULMONARY DISEASE, UNSPECIFIED Qualifiers: COPD type: unspecified COPD Qualified Code(s): J44.9 - Chronic obstructive pulmonary disease, unspecified (3) DVT prophylaxis Code(s): [id number] - (4) GERD (gastroesophageal reflux disease) Code(s): K21.9 - GASTRO-ESOPHAGEAL REFLUX DISEASE WITHOUT ESOPHAGITIS Qualifiers: Esophagitis presence: without esophagitis Qualified Code(s): K21.9 - Gastro -esophageal reflux disease without esophagitis (5) Generalized weakness Code(s): R53.1 - WEAKNESS (6) HTN (hypertension) Code(s): I10 - ESSENTIAL (PRIMARY) HYPERTENSION Qualifiers: Hypertension type: essential hypertension Qualified Code(s): I10 - Essential (primary) hypertension (7) Hyponatremia Code(s): E87.1 - HYPO-OSMOLALITY AND HYPONATREMIA (8) Leukocytosis Code(s): D72.829 - ELEVATED WHITE BLOOD CELL COUNT, UNSPECIFIED Qualifiers: Leukocytosis type: unspecified Qualified Code(s): D72.829 - Elevated white blood cell count, unspecified (9) Lung cancer Code(s): C34.90 - MALIGNANT NEOPLASM OF UNSP PART OF UNSP BRONCHUS OR LUNG Qualifiers: Laterality: right Lung location: upper lobe of lung Qualified Code(s): C34.11 - Malignant neoplasm of upper lobe, right bronchus or lung (10) UTI (urinary tract infection) Code(s): N39.0 - URINARY TRACT INFECTION, SITE NOT SPECIFIED Qualifiers: Hematuria presence: without hematuria (11) Abnormal liver enzymes Code(s): R74.8 - ABNORMAL LEVELS OF OTHER SERUM ENZYMES (12) Cholelithiasis Code(s): K80.20 - CALCULUS OF GALLBLADDER W/O CHOLECYSTITIS W/O OBSTRUCTION Qualifiers: Cholelithiasis location: gallbladder Cholecystitis presence: without cholecystitis Biliary obstruction: without biliary obstruction Qualified Code(s): K80.20 - Calculus of gallbladder without cholecystitis without obstruction (13) Transaminitis Code(s): R74.0 - NONSPEC ELEV OF LEVELS OF TRANSAMNS & LACTIC ACID DEHYDRGNSE Assessment/Plan 1. Lethargy referable to hyponatremia and pre-renal acute on CKD improved 2. UTI with urinary retention 3. Right lung adenocarcinoma s/p resection 4. COPD 5. CAD angina pectoris 6. Systolic murmur consistent with mitral valve disease 7. HTN 8. Thrombocytopenia 9. Hypokalemia improved 10. Abnl LFTs improving PLAN: 1. Continue Toprol XL 12.5 BID, ASA 81 QD 2. Bronchodilator and O2 as needed 3. IVF, empiric antibiotic, monitor NA level and renal function and replete K as needed 4. MRCP, HIDA results appreciated 5. DVT and GI prophylaxis
[2018-01-19] MEDS: ASPIRIN 81 MG CHEWABLE TABLETS PO SCH (17:00)
[2018-01-19] MEDS: LACTOBACILLUS ACIDOPHILUS 1 EACH TAB (FP) PO SCH (17:00)
[2018-01-19] MEDS: MULTIVITAMINS (DAILY MVI) TABLET (FP) PO SCH (17:00)
--- NOTE | 2018-01-19 18:27 | PN ---
Progress Note, Physician History of Present Illness: Pt seen and examined at bedside. She is awake and alert. She is tolerating diet. - Current Medication List Current Medications: Active Medications Albuterol Sulfate (Ventolin 0.083% Nebulizer Soln -) 1 amp NEB Q8H PRN PRN Reason: SHORT OF BREATH/WHEEZING Last Admin: 01/19/18 16:13 Dose: 1 amp Aspirin (Asa -) 81 mg PO DAILY [facility] Last Admin: 01/19/18 17:00 Dose: 81 mg Cefuroxime Axetil (Ceftin -) 500 mg PO BID [facility] Heparin Sodium (Porcine) (Heparin -) 5,000 unit SQ BID [facility] Last Admin: 01/19/18 11:00 Dose: Not Given Insulin Aspart (Novolog Vial Sliding Scale -) 1 vial SQ TIDAC [facility] PRN Reason: Protocol Last Admin: 01/19/18 17:00 Dose: 2 units Lactobacillus Acidophilus (Bacid -) 1 tab PO DAILY [facility] Last Admin: 01/19/18 17:00 Dose: 1 tab Metoprolol Succinate (Toprol Xl -) 12.5 mg PO BID [facility] Last Admin: 01/19/18 10:11 Dose: 12.5 mg Multivitamins/Minerals/Vitamin C (Tab-A-Vit -) 1 tab PO DAILY [facility] Last Admin: 01/19/18 17:00 Dose: 1 tab Pantoprazole Sodium (Protonix -) 20 mg PO DAILY [facility] - Objective Vital Signs: Vital Signs Temperature 97.9 F 01/19/18 15:25 Pulse Rate 74 01/19/18 15:25 Respiratory Rate 18 01/19/18 15:25 Blood Pressure 148/69 01/19/18 15:25 O2 Sat by Pulse Oximetry (%) 99 01/19/18 09:00 Constitutional: Yes: Calm Eyes: Yes: Conjunctiva Clear HENT: Yes: Atraumatic Cardiovascular: Yes: S1, S2 Respiratory: Yes: CTA Bilaterally Gastrointestinal: Yes: Normal Bowel Sounds, Soft Genitourinary: Yes: WNL Musculoskeletal: Yes: WNL Edema: No Neurological: Yes: Oriented Psychiatric: Yes: Oriented Labs: CBC, BMP 01/19/18 07:34 01/19/18 07:34 Problem List - Problems (1) CRUZ (acute kidney injury) Code(s): N17.9 - ACUTE KIDNEY FAILURE, UNSPECIFIED (2) CAD (coronary artery disease) Code(s): I25.10 - ATHSCL HEART DISEASE OF [place] CORONARY ARTERY W/O ANG PCTRS Qualifiers: Coronary Disease-Associated Artery/Lesion type: [place] artery [place] vs. transplanted heart: [place] heart Associated angina: without angina Qualified Code(s): I25.10 - Atherosclerotic heart disease of [place] coronary artery without angina pectoris (3) COPD (chronic obstructive pulmonary disease) Code(s): J44.9 - CHRONIC OBSTRUCTIVE PULMONARY DISEASE, UNSPECIFIED Qualifiers: COPD type: unspecified COPD Qualified Code(s): J44.9 - Chronic obstructive pulmonary disease, unspecified (4) Generalized weakness Code(s): R53.1 - WEAKNESS (5) HTN (hypertension) Code(s): I10 - ESSENTIAL (PRIMARY) HYPERTENSION Qualifiers: Hypertension type: essential hypertension Qualified Code(s): I10 - Essential (primary) hypertension (6) Hyponatremia Code(s): E87.1 - HYPO-OSMOLALITY AND HYPONATREMIA (7) Lung cancer Code(s): C34.90 - MALIGNANT NEOPLASM OF UNSP PART OF UNSP BRONCHUS OR LUNG Qualifiers: Laterality: right Lung location: upper lobe of lung Qualified Code(s): C34.11 - Malignant neoplasm of upper lobe, right bronchus or lung Assessment/Plan Current Medications Generic Name Dose Route Start Last Admin Trade Name Freq PRN Reason Stop Dose Admin Albuterol Sulfate 1 amp 01/16/18 11:47 01/19/18 16:13 Ventolin 0.083% Nebulizer Soln - NEB 1 amp Q8H PRN Administration SHORT OF BREATH/WHEEZING Aspirin 81 mg 01/14/18 10:00 01/19/18 17:00 Asa - PO 81 mg DAILY [facility] Administration Cefuroxime Axetil 500 mg 01/19/18 22:00 Ceftin - PO BID [facility] Heparin Sodium (Porcine) 5,000 unit 01/13/18 22:00 01/19/18 11:00 Heparin - SQ Not Given BID [facility] Insulin Aspart 1 vial 01/18/18 07:00 01/19/18 17:00 Novolog Vial Sliding Scale - SQ 2 units TIDAC [facility] Administration Protocol Lactobacillus Acidophilus 1 tab 01/15/18 10:30 01/19/18 17:00 Bacid - PO 1 tab DAILY [facility] Administration Metoprolol Succinate 12.5 mg 01/14/18 22:00 01/19/18 10:11 Toprol Xl - PO 12.5 mg BID [facility] Administration Multivitamins/Minerals/Vitamin C 1 tab 01/15/18 10:00 01/19/18 17:00 Tab-A-Vit - PO 1 tab DAILY [facility] Administration Pantoprazole Sodium 20 mg 01/20/18 10:00 Protonix - PO DAILY [facility] Impression 1. Hyponatremia 2. dehydration 3. CRUZ 4. HTN 5. COPD 6. lung cancer 7. gerd 8. UTI 9. small right renal cyst Plan - renal function stabilizing - monitor rat poisoner - encourage PO intake - will follow PRN - sodium stable - can start to increase the amount of water she is drinking, as long as she is eating food as well
[2018-01-19] MEDS: CEFUROXIME AXETIL 500 MG TABLET PO SCH (22:28)
--- NOTE | 2018-01-19 22:54 | PN ---
Progress Note (short form) - Note Progress Note: patient seen and examined no specific complaimts Last Vital Signs Temp Pulse Resp BP Pulse Ox 98.3 F 79 20 144/62 100 01/19/18 21:00 01/19/18 21:00 01/19/18 21:00 01/19/18 21:00 01/19/18 21:00 Cor: RSR, No murmurs, No gallops Lungs: Clear to P&A Abd: Soft, Normal bowel sounds, No organomegaly Ext:No significant edema Abnormal Lab Results 01/19/18 01/19/18 07:34 07:34 WBC 14.9 H RBC 2.51 L Hgb 8.1 L Hct 23.3 L RDW 15.8 H MPV 6.7 L Lymphocytes % (Manual) 3.0 L D Chloride 109 H Random Glucose 215 H Calcium 7.5 L ALT 104 H Alkaline Phosphatase 119 H Total Protein 4.9 L Albumin 1.8 L Active Medications Generic Name Dose Route Start Last Admin Trade Name Freq PRN Reason Stop Dose Admin Albuterol Sulfate 1 amp 01/16/18 11:47 01/19/18 21:16 Ventolin 0.083% Nebulizer Soln - NEB 1 amp Q8H PRN Administration SHORT OF BREATH/WHEEZING Aspirin 81 mg 01/14/18 10:00 01/19/18 17:00 Asa - PO 81 mg DAILY [facility] Administration Cefuroxime Axetil 500 mg 01/19/18 22:00 01/19/18 22:28 Ceftin - PO 500 mg BID [facility] Administration Heparin Sodium (Porcine) 5,000 unit 01/13/18 22:00 01/19/18 21:34 Heparin - SQ 5,000 unit BID [facility] Administration Insulin Aspart 1 vial 01/18/18 07:00 01/19/18 17:00 Novolog Vial Sliding Scale - SQ 2 units TIDAC [facility] Administration Protocol Lactobacillus Acidophilus 1 tab 01/15/18 10:30 01/19/18 17:00 Bacid - PO 1 tab DAILY [facility] Administration Metoprolol Succinate 12.5 mg 01/14/18 22:00 01/19/18 22:29 Toprol Xl - PO 12.5 mg BID [facility] Administration Multivitamins/Minerals/Vitamin C 1 tab 01/15/18 10:00 01/19/18 17:00 Tab-A-Vit - PO 1 tab DAILY [facility] Administration Pantoprazole Sodium 20 mg 01/20/18 10:00 Protonix - PO DAILY [facility] a/p 82 y/o withWith RUQ pain. hida scan shows no cystic duct obstruction mri/mrcp--abnormal signal pancreatic head --need f/u. cirrhosis of liver. right hepatic dome lesion ? hcc--need f/u will check afp/cea will discuss with gi/radiology
[2018-01-20] MEDS ORDERED: INSULIN (NOVOLOG) ASPART 100 UNITS/ML 10ML VIAL ONE ×4 (06:31→17:12)
[2018-01-20] MEDS: INSULIN SLIDING SCALE (NOVOLOG) 1 VIAL SQ SCH ×3 (06:34→17:21)
[2018-01-20 08:19] LABS: ANION GAP 10 (8-16); CALCIUM 7.1 mg/dL (8.5-10.1); CHLORIDE 104 mmol/L (98-107); CO2 27 mmol/L (21-32); MAGNESIUM 1.5 mg/dL (1.8-2.4); POTASSIUM 3.5 mmol/L (3.5-5.1); SODIUM 141 mmol/L (136-145)
[2018-01-20 08:21] LABS: INR 1.48 (0.82-1.09); PROTHROMBIN TIME (PATIENT) 16.7 SEC (9.98-11.88)
[2018-01-20 08:24] LABS: ACTIVATED PTT 26.8 SECONDS (26.9-34.4); ALK PHOS 121 U/L (45-117); AMYLASE 34 U/L (25-115); BILIRUBIN,DIRECT 0.2 mg/dL (0.0-0.2); BILIRUBIN,TOTAL 0.5 mg/dL (0.2-1.0); BLOOD UREA NITROGEN 11 mg/dL (7-18); CREATININE 0.5 mg/dL (0.55-1.02); GLUCOSE,RANDOM 192 mg/dL (74-106); HEMATOCRIT 25.2 % (32.4-45.2); HEMOGLOBIN 8.5 GM/dL (10.7-15.3); MCH 31.2 pg (25.7-33.7); MCHC 33.7 g/dl (32.0-36.0); MEAN CELL VOLUME 92.5 fl (80-96); MEAN PLT VOLUME 6.9 fl (7.5-11.1); PHOSPHOROUS 2.8 mg/dL (2.5-4.9); PLATELET COUNT 248 K/MM3 (134-434); RBC 2.73 M/mm3 (3.60-5.2); RDW 15.9 % (11.6-15.6); SGOT/AST 24 U/L (15-37); SGPT/ALT 81 U/L (12-78); WHITE BLOOD COUNT 15.6 K/mm3 (4.0-10.0)
[2018-01-20 08:37] LABS: LIPASE 210 U/L (73-393)
[2018-01-20] MEDS ORDERED: MAGNESIUM SULF 50% (8.12 MEQ/2 ML-1 GM VIAL) IVPB ONE (09:15)
[2018-01-20] MEDS ORDERED: diphenhydrAMINE HCL 25 MG CAPSULE (FP) PO PRN (09:17)
[2018-01-20] MEDS ORDERED: PT OWN MED DRAWER 7, Y5N ONE ×2 (09:21→21:23)
--- NOTE | 2018-01-20 09:23 | PN ---
Progress Note, Physician Chief Complaint: Pt lying in bed in no acute distress. Denies any chest discomfort, sob, n/v/d, or fever/chills - Current Medication List Current Medications: Active Medications Albuterol Sulfate (Ventolin 0.083% Nebulizer Soln -) 1 amp NEB Q8H PRN PRN Reason: SHORT OF BREATH/WHEEZING Last Admin: 01/19/18 21:16 Dose: 1 amp Aspirin (Asa -) 81 mg PO DAILY [facility] Last Admin: 01/19/18 17:00 Dose: 81 mg Cefuroxime Axetil (Ceftin -) 500 mg PO BID [facility] Last Admin: 01/19/18 22:28 Dose: 500 mg Diphenhydramine HCl (Benadryl -) 25 mg PO HS PRN PRN Reason: INSOMNIA Heparin Sodium (Porcine) (Heparin -) 5,000 unit SQ BID [facility] Last Admin: 01/19/18 21:34 Dose: 5,000 unit Insulin Aspart (Novolog Vial Sliding Scale -) 1 vial SQ TIDAC [facility] PRN Reason: Protocol Last Admin: 01/20/18 06:34 Dose: 2 units Lactobacillus Acidophilus (Bacid -) 1 tab PO DAILY [facility] Last Admin: 01/19/18 17:00 Dose: 1 tab Magnesium Sulfate (Magnesium Sulfate) 2 gm IVPB ONCE ONE Stop: 01/20/18 09:16 Metoprolol Succinate (Toprol Xl -) 12.5 mg PO BID [facility] Last Admin: 01/19/18 22:29 Dose: 12.5 mg Multivitamins/Minerals/Vitamin C (Tab-A-Vit -) 1 tab PO DAILY [facility] Last Admin: 01/19/18 17:00 Dose: 1 tab Pantoprazole Sodium (Protonix -) 20 mg PO DAILY [facility] Potassium Chloride (K-Dur -) 40 meq PO ONCE ONE Stop: 01/20/18 09:16 - Objective Vital Signs: Vital Signs Temperature 98.0 F 01/20/18 06:00 Pulse Rate 77 01/20/18 06:00 Respiratory Rate 18 01/20/18 06:00 Blood Pressure 154/72 01/20/18 06:00 O2 Sat by Pulse Oximetry (%) 100 01/19/18 21:00 Constitutional: Yes: Well Nourished, No Distress Cardiovascular: Yes: Regular Rate and Rhythm, Murmur. No: Gallop, Rub, S1 Respiratory: Yes: Regular, Diminished, Rales (bibasilar) Gastrointestinal: Yes: WNL, Normal Bowel Sounds, Soft, Abdomen, Obese. No: Distention, Tenderness Edema: No Neurological: Yes: WNL, Alert, Oriented Psychiatric: Yes: WNL, Alert, Oriented Labs: CBC, BMP 01/20/18 07:00 01/20/18 07:00 INR, PTT INR 1.48 (0.82-1.09) H 01/20/18 07:00 Problem List - Problems (1) Hyponatremia Code(s): E87.1 - HYPO-OSMOLALITY AND HYPONATREMIA (2) UTI (urinary tract infection) Code(s): N39.0 - URINARY TRACT INFECTION, SITE NOT SPECIFIED Qualifiers: Hematuria presence: without hematuria (3) Leukocytosis Code(s): D72.829 - ELEVATED WHITE BLOOD CELL COUNT, UNSPECIFIED Qualifiers: Leukocytosis type: unspecified Qualified Code(s): D72.829 - Elevated white blood cell count, unspecified (4) CRUZ (acute kidney injury) Code(s): N17.9 - ACUTE KIDNEY FAILURE, UNSPECIFIED (5) Generalized weakness Code(s): R53.1 - WEAKNESS (6) HTN (hypertension) Code(s): I10 - ESSENTIAL (PRIMARY) HYPERTENSION Qualifiers: Hypertension type: essential hypertension Qualified Code(s): I10 - Essential (primary) hypertension (7) Lung cancer Code(s): C34.90 - MALIGNANT NEOPLASM OF UNSP PART OF UNSP BRONCHUS OR LUNG Qualifiers: Laterality: right Lung location: upper lobe of lung Qualified Code(s): C34.11 - Malignant neoplasm of upper lobe, right bronchus or lung (8) DVT prophylaxis Code(s): [id number] - (9) CAD (coronary artery disease) Code(s): I25.10 - ATHSCL HEART DISEASE OF [place] CORONARY ARTERY W/O ANG PCTRS Qualifiers: Coronary Disease-Associated Artery/Lesion type: [place] artery [place] vs. transplanted heart: [place] heart Associated angina: without angina Qualified Code(s): I25.10 - Atherosclerotic heart disease of [place] coronary artery without angina pectoris (10) GERD (gastroesophageal reflux disease) Code(s): K21.9 - GASTRO-ESOPHAGEAL REFLUX DISEASE WITHOUT ESOPHAGITIS Qualifiers: Esophagitis presence: without esophagitis Qualified Code(s): K21.9 - Gastro -esophageal reflux disease without esophagitis (11) COPD (chronic obstructive pulmonary disease) Code(s): J44.9 - CHRONIC OBSTRUCTIVE PULMONARY DISEASE, UNSPECIFIED Qualifiers: COPD type: unspecified COPD Qualified Code(s): J44.9 - Chronic obstructive pulmonary disease, unspecified (12) History of alcohol abuse Code(s): Z87.898 - PERSONAL HISTORY OF OTHER SPECIFIED CONDITIONS (13) Hypokalemia Code(s): E87.6 - HYPOKALEMIA (14) Hypophosphatemia Code(s): E83.39 - OTHER DISORDERS OF PHOSPHORUS METABOLISM (15) Anemia Code(s): D64.9 - ANEMIA, UNSPECIFIED Qualifiers: Anemia type: unspecified type Qualified Code(s): D64.9 - Anemia, unspecified (16) Abnormal liver enzymes Code(s): R74.8 - ABNORMAL LEVELS OF OTHER SERUM ENZYMES (17) Transaminitis Code(s): R74.0 - NONSPEC ELEV OF LEVELS OF TRANSAMNS & LACTIC ACID DEHYDRGNSE (18) Chronic liver disease Code(s): K76.9 - LIVER DISEASE, UNSPECIFIED (19) Acute hyperglycemia Code(s): R73.9 - HYPERGLYCEMIA, UNSPECIFIED (20) SIRS (systemic inflammatory response syndrome) Code(s): R65.10 - SIRS OF NON-INFECTIOUS ORIGIN W/O ACUTE ORGAN DYSFUNCTION (21) Encephalopathy Code(s): G93.40 - ENCEPHALOPATHY, UNSPECIFIED (22) Cholelithiasis Code(s): K80.20 - CALCULUS OF GALLBLADDER W/O CHOLECYSTITIS W/O OBSTRUCTION Qualifiers: Cholelithiasis location: gallbladder Cholecystitis presence: without cholecystitis Biliary obstruction: without biliary obstruction Qualified Code(s): K80.20 - Calculus of gallbladder without cholecystitis without obstruction (23) Hypoalbuminemia Code(s): E88.09 - OTH DISORDERS OF PLASMA-PROTEIN METABOLISM, NEC (24) Heme positive stool Code(s): R19.5 - OTHER FECAL ABNORMALITIES (25) Hypomagnesemia Code(s): E83.42 - HYPOMAGNESEMIA Assessment/Plan (1) Hyponatremia Assessment/Plan: hypovolemic/hypotonic hyponatremia resolved Nephrology assistance appreciated Code(s): E87.1 - HYPO-OSMOLALITY AND HYPONATREMIA (2) UTI (urinary tract infection) Assessment/Plan: UA+, +leukocytosis , left shift UC neg ID consulted pt started on ceftin x 5 days will monitor Code(s): N39.0 - URINARY TRACT INFECTION, SITE NOT SPECIFIED Qualifiers: Hematuria presence: without hematuria (3) Leukocytosis Assessment/Plan: uti crp/esr elevated blood cultures neg ceftin x 5 days per ID ID consult appreciated Code(s): D72.829 - ELEVATED WHITE BLOOD CELL COUNT, UNSPECIFIED Qualifiers: Leukocytosis type: unspecified Qualified Code(s): D72.829 - Elevated white blood cell count, unspecified (4) CRUZ (acute kidney injury) Assessment/Plan: improved will monitor Code(s): N17.9 - ACUTE KIDNEY FAILURE, UNSPECIFIED (5) Generalized weakness Assessment/Plan: improving PT Code(s): R53.1 - WEAKNESS (6) HTN (hypertension) Assessment/Plan: controlled allow permissive htn in the setting of hypovolemia metoprolol per parameters Code(s): I10 - ESSENTIAL (PRIMARY) HYPERTENSION Qualifiers: Hypertension type: essential hypertension Qualified Code(s): I10 - Essential (primary) hypertension (7) Lung cancer Assessment/Plan: s/p left lobe resection last CT without changes followed by outpt Onc consult appreciated Code(s): C34.90 - MALIGNANT NEOPLASM OF UNSP PART OF UNSP BRONCHUS OR LUNG Qualifiers: Laterality: right Lung location: upper lobe of lung Qualified Code(s): C34.11 - Malignant neoplasm of upper lobe, right bronchus or lung (8) DVT prophylaxis Assessment/Plan: Heparin SQ SCDs Code(s): [id number] - (9) CAD (coronary artery disease) Assessment/Plan: stable ekg reviewed continue aspirin, metoprolol followed by as outpatient Code(s): I25.10 - ATHSCL HEART DISEASE OF [place] CORONARY ARTERY W/O ANG PCTRS Qualifiers: Coronary Disease-Associated Artery/Lesion type: [place] artery [place] vs. transplanted heart: [place] heart Associated angina: without angina Qualified Code(s): I25.10 - Atherosclerotic heart disease of [place] coronary artery without angina pectoris (10) GERD (gastroesophageal reflux disease) Assessment/Plan: chronic protonix Code(s): K21.9 - GASTRO-ESOPHAGEAL REFLUX DISEASE WITHOUT ESOPHAGITIS Qualifiers: Esophagitis presence: without esophagitis Qualified Code(s): K21.9 - Gastro -esophageal reflux disease without esophagitis (11) COPD (chronic obstructive pulmonary disease) Assessment/Plan: stable Code(s): J44.9 - CHRONIC OBSTRUCTIVE PULMONARY DISEASE, UNSPECIFIED Qualifiers: COPD type: unspecified COPD Qualified Code(s): J44.9 - Chronic obstructive pulmonary disease, unspecified (12) History of alcohol abuse Assessment/Plan: stable reports hasn't drank for years Code(s): Z87.898 - PERSONAL HISTORY OF OTHER SPECIFIED CONDITIONS (13) Hypokalemia Assessment/Plan: improved Code(s): E87.6 - HYPOKALEMIA (14) Hypophosphatemia Assessment/Plan: improved Code(s): E83.39 - OTHER DISORDERS OF PHOSPHORUS METABOLISM (15) Anemia Assessment/Plan: h/h stable today, slight drop over last few days consistent with inflammation/ chronic disease low retic count- bone marrow suppression? hematology recs appreciated iron panel reviewed, cannot rule out iron def in this setting heme-occult positive GI consulted EGD/Colonoscopy outpt will monitor Code(s): D64.9 - ANEMIA, UNSPECIFIED Qualifiers: Anemia type: other cause (16) Abnormal liver enzymes Assessment/Plan: improving, no abd tenderness on palpation abd US cholelithiasis, no evidence of cholecystitis diet advanced today GI consult appreciated MRCP/HIDA without cystic obstruction will need to r/o hepatic/pancreas malignancy as outpt Code(s): R74.8 - ABNORMAL LEVELS OF OTHER SERUM ENZYMES (17) Transaminitis Assessment/Plan: as above Code(s): R74.0 - NONSPEC ELEV OF LEVELS OF TRANSAMNS & LACTIC ACID DEHYDRGNSE (18) Chronic liver disease Assessment/Plan: cirrhotic changes on US alcoholic liver disease GI consult appreciated repeat abd US in 6 months outpt Code(s): K76.9 - LIVER DISEASE, UNSPECIFIED (19) Acute hyperglycemia Assessment/Plan: in the setting of acute inflammatory response, unclear etiology lipase/amylase wnl insulin sliding scale BGM hga1c 7.4 Code(s): R73.9 - HYPERGLYCEMIA, UNSPECIFIED (20) SIRS (systemic inflammatory response syndrome) Assessment/Plan: improving tachy, leukocytosis on admission, ua+ however urine culture/blood cultures/chest xray neg Code(s): R65.10 - SIRS OF NON-INFECTIOUS ORIGIN W/O ACUTE ORGAN DYSFUNCTION (21) Encephalopathy Assessment/Plan: improving Code(s): G93.40 - ENCEPHALOPATHY, UNSPECIFIED (22) Cholelithiasis Assessment/Plan: as above pt tolerating diet gi following Code(s): K80.20 - CALCULUS OF GALLBLADDER W/O CHOLECYSTITIS W/O OBSTRUCTION Qualifiers: Cholelithiasis location: gallbladder Cholecystitis presence: without cholecystitis Biliary obstruction: without biliary obstruction Qualified Code(s): K80.20 - Calculus of gallbladder without cholecystitis without obstruction (23) Hypoalbuminemia Assessment/Plan: Code(s): E88.09 - OTH DISORDERS OF PLASMA-PROTEIN METABOLISM, NEC (24) Heme positive stool Assessment/Plan: as above Code(s): R19.5 - OTHER FECAL ABNORMALITIES (25) Hypomagnesemia Assessment/Plan: repleted Code(s): E83.42 - HYPOMAGNESEMIA Dispo: SNF
[2018-01-20] MEDS ORDERED: MAGNESIUM SULFATE IN WATER 2 GM/50 ML IVPB IVPB ONE (10:00)
[2018-01-20] MEDS ORDERED: POTASSIUM CHLORIDE TABS 20 MEQ TABLET.ER (FP) PO ONE (10:00)
[2018-01-20] MEDS: CEFUROXIME AXETIL 500 MG TABLET PO SCH ×2 (10:07→21:36)
[2018-01-20] MEDS: metoPROLOL SUCCINATE 25 MG TAB.SR.24H (FP) PO SCH ×2 (10:07→21:35)
[2018-01-20] MEDS: MULTIVITAMINS (DAILY MVI) TABLET (FP) PO SCH (10:07)
[2018-01-20] MEDS: LACTOBACILLUS ACIDOPHILUS 1 EACH TAB (FP) PO SCH (10:07)
[2018-01-20] MEDS: PANTOPRAZOLE 20 MG TABLET (FP) PO SCH (10:07)
[2018-01-20] MEDS: ASPIRIN 81 MG CHEWABLE TABLETS PO SCH (10:07)
[2018-01-20] MEDS: HEPARIN NA (PORCINE) 5,000 UNITS/ML 1ML VIAL SQ SCH (10:08)
[2018-01-20 12:05] LABS: MACROCYTOSIS 1+; TOXIC GRANULATION 1+
[2018-01-20] MEDS: ALBUTEROL SO4 0.083% IH SOL 2.5 MG/3 ML VIAL.NEB. NEB PRN ×2 (12:10→21:20)
--- NOTE | 2018-01-20 12:56 | PN ---
Progress Note (short form) - Note Progress Note: patient seen and examined no specific complaimts Cor: RSR, No murmurs, No gallops Lungs: Clear to P&A Abd: Soft, Normal bowel sounds, No organomegaly Ext:No significant edema Last Vital Signs Temp Pulse Resp BP Pulse Ox 98 F 76 18 139/63 100 01/20/18 10:00 01/20/18 10:00 01/20/18 10:00 01/20/18 10:00 01/19/18 21:00 CBC, BMP 01/20/18 07:00 01/20/18 07:00 Current Medications Generic Name Dose Route Start Last Admin Trade Name Freq PRN Reason Stop Dose Admin Albuterol Sulfate 1 amp 01/16/18 11:47 01/19/18 21:16 Ventolin 0.083% Nebulizer Soln - NEB 1 amp Q8H PRN Administration SHORT OF BREATH/WHEEZING Aspirin 81 mg 01/14/18 10:00 01/20/18 10:07 Asa - PO 81 mg DAILY BRENDA Administration Cefuroxime Axetil 500 mg 01/19/18 22:00 01/20/18 10:07 Ceftin - PO 500 mg BID BRENDA Administration Diphenhydramine HCl 25 mg 01/20/18 09:17 Benadryl - PO HS PRN INSOMNIA Heparin Sodium (Porcine) 5,000 unit 01/13/18 22:00 01/20/18 10:08 Heparin - SQ 5,000 unit BID BRENDA Administration Insulin Aspart 1 vial 01/18/18 07:00 01/20/18 11:38 Novolog Vial Sliding Scale - SQ 8 units TIDAC BRENDA Administration Protocol Lactobacillus Acidophilus 1 tab 01/15/18 10:30 01/20/18 10:07 Bacid - PO 1 tab DAILY [facility]ENDA Administration Metoprolol Succinate 12.5 mg 01/14/18 22:00 01/20/18 10:07 Toprol Xl - PO 12.5 mg BID BRENDA Administration Multivitamins/Minerals/Vitamin C 1 tab 01/15/18 10:00 01/20/18 10:07 Tab-A-Vit - PO 1 tab DAILY [facility]DA Administration Pantoprazole Sodium 20 mg 01/20/18 10:00 01/20/18 10:07 Protonix - PO 20 mg DAILY [facility]DA Administration RUQ pain: improving, as below Hyponatremia-improved CRUZ- improved UTI-ceftriaxone Anemia: FOBT positive, GI f.u noted Lung ca - recently with stable chest CT Cirrhosis Prior hx of substance (alcohol) abuse hida scan shows no cystic duct obstruction mri/mrcp--abnormal signal pancreatic head --need f/u. cirrhosis of liver. right hepatic dome lesion ?HCC: surveillance US needed f/u afp/cea/GI possible endocsopy for bleeding given FOBT positive, if pt agrees monitor Cr
--- NOTE | 2018-01-20 15:07 | PN ---
GI Progress Note Subjective: For Dr. Bennett Ms. Wagoner states feeling well No abdominal pain present at bedside. They both tell me that they have known about her having cirrhosis for years. - Objective Vital Signs: Vital Signs Temperature 98.2 F 01/20/18 14:00 Pulse Rate 76 01/20/18 10:00 Respiratory Rate 18 01/20/18 10:00 Blood Pressure 139/63 01/20/18 10:00 O2 Sat by Pulse Oximetry (%) 100 01/19/18 21:00 Constitutional: Calm Eyes: No: Sclera Icterus Cardiovascular: Yes: Regular Rate and Rhythm, Murmur Respiratory: Yes: Diminished (at bases b/l, poor insp effort) Gastrointestinal Inspection: No: Distention ...Auscultate: Yes: Normoactive Bowel Sounds ...Palpate: No: Hepatomegaly, Splenomegaly, Tenderness Edema: Yes Edema: LLE: Trace, RLE: Trace Neurological: Yes: Alert, Oriented Labs: LABS: 01/20/18 07:00 01/20/18 07:00 INR 1.48 (0.82-1.09) H 01/20/18 07:00 Hepatic Panel Total Bilirubin 0.5 mg/dL (0.2-1.0) 01/20/18 07:00 Direct Bilirubin 0.2 mg/dL (0.0-0.2) 01/20/18 07:00 AST 24 U/L (15-37) 01/20/18 07:00 ALT 81 U/L (12-78) H 01/20/18 07:00 Alkaline Phosphatase 121 U/L (45-117) H 01/20/18 07:00 Albumin 2.0 g/dl (3.4-5.0) L 01/20/18 07:00 01/20/18 07:00 INR 1.48 H - ....Imaging MRI: Report Reviewed (Nodular atrophic liver an area of srterial enhancement @ hepatic dome Area of ill-defined art. enhancement in liver left of GB w/ rapid washout Atrophic pancreas with hypoenhancement in the head Multiple gallstones at neck region, no GB wall thickening Normal CBD) Other: Other (HIDA scan: negative. gallbladder fills) Problem List - Problems (1) Abnormal liver enzymes Assessment/Plan: No abdominal pain currently Explained to Ms. Wagoner and her that malignancy of the liver would need to be excluded and that her mri findings of pancreas will need follow-up as well AFP has been ordered Hepatitis A/B/C serologies ordered Code(s): R74.8 - ABNORMAL LEVELS OF OTHER SERUM ENZYMES (2) Anemia Assessment/Plan: with guaiac positive stool. Ms. wagoner has decided that she wants to pursue further evaluation of her anemia and guaiac positive stool as an outpatient and deferred while inpatient. We had discussed that the purpose of the procedures would be to exclude potential sources of anemia and blood in her stool, including cancers such as colon cancer. Code(s): D64.9 - ANEMIA, UNSPECIFIED Qualifiers: Anemia type: unspecified type Qualified Code(s): D64.9 - Anemia, unspecified
--- NOTE | 2018-01-20 19:40 | PN ---
Progress Note, Physician Chief Complaint: Not in distress History of Present Illness: Patient was seen and examined. Awake and alert. Chart was reviewed Denies chest pain, SOB or palpitations GI input noted - Current Medication List Current Medications: Active Medications Albuterol Sulfate (Ventolin 0.083% Nebulizer Soln -) 1 amp NEB Q8H PRN PRN Reason: SHORT OF BREATH/WHEEZING Last Admin: 01/20/18 12:10 Dose: 1 amp Aspirin (Asa -) 81 mg PO DAILY [facility] Last Admin: 01/20/18 10:07 Dose: 81 mg Cefuroxime Axetil (Ceftin -) 500 mg PO BID [facility] Last Admin: 01/20/18 10:07 Dose: 500 mg Diphenhydramine HCl (Benadryl -) 25 mg PO HS PRN PRN Reason: INSOMNIA Heparin Sodium (Porcine) (Heparin -) 5,000 unit SQ BID [facility] Last Admin: 01/20/18 10:08 Dose: 5,000 unit Insulin Aspart (Novolog Vial Sliding Scale -) 1 vial SQ TIDAC [facility] PRN Reason: Protocol Last Admin: 01/20/18 17:21 Dose: 4 units Lactobacillus Acidophilus (Bacid -) 1 tab PO DAILY [facility] Last Admin: 01/20/18 10:07 Dose: 1 tab Metoprolol Succinate (Toprol Xl -) 12.5 mg PO BID [facility] Last Admin: 01/20/18 10:07 Dose: 12.5 mg Multivitamins/Minerals/Vitamin C (Tab-A-Vit -) 1 tab PO DAILY [facility] Last Admin: 01/20/18 10:07 Dose: 1 tab Pantoprazole Sodium (Protonix -) 20 mg PO DAILY [facility] Last Admin: 01/20/18 10:07 Dose: 20 mg - Objective Vital Signs: Vital Signs Temperature 98.4 F 01/20/18 19:25 Pulse Rate 88 01/20/18 19:25 Respiratory Rate 18 01/20/18 19:25 Blood Pressure 136/55 01/20/18 19:25 O2 Sat by Pulse Oximetry (%) 97 01/20/18 12:30 Eyes: Yes: PERRL HENT: Yes: Atraumatic Neck: Yes: Supple Cardiovascular: Yes: Regular Rate and Rhythm, S1, S2 Respiratory: Yes: CTA Bilaterally Gastrointestinal: Yes: Normal Bowel Sounds, Soft. No: Tenderness Edema: No Labs: CBC, BMP 01/20/18 07:00 01/20/18 07:00 INR, PTT INR 1.48 (0.82-1.09) H 01/20/18 07:00 Problem List - Problems (1) CRUZ (acute kidney injury) Code(s): N17.9 - ACUTE KIDNEY FAILURE, UNSPECIFIED (2) CAD (coronary artery disease) Code(s): I25.10 - ATHSCL HEART DISEASE OF [place] CORONARY ARTERY W/O ANG PCTRS Qualifiers: Coronary Disease-Associated Artery/Lesion type: [place] artery [place] vs. transplanted heart: [place] heart Associated angina: without angina Qualified Code(s): I25.10 - Atherosclerotic heart disease of [place] coronary artery without angina pectoris (3) COPD (chronic obstructive pulmonary disease) Code(s): J44.9 - CHRONIC OBSTRUCTIVE PULMONARY DISEASE, UNSPECIFIED Qualifiers: COPD type: unspecified COPD Qualified Code(s): J44.9 - Chronic obstructive pulmonary disease, unspecified (4) GERD (gastroesophageal reflux disease) Code(s): K21.9 - GASTRO-ESOPHAGEAL REFLUX DISEASE WITHOUT ESOPHAGITIS Qualifiers: Esophagitis presence: without esophagitis Qualified Code(s): K21.9 - Gastro -esophageal reflux disease without esophagitis (5) Generalized weakness Code(s): R53.1 - WEAKNESS (6) HTN (hypertension) Code(s): I10 - ESSENTIAL (PRIMARY) HYPERTENSION Qualifiers: Hypertension type: essential hypertension Qualified Code(s): I10 - Essential (primary) hypertension (7) Hypokalemia Code(s): E87.6 - HYPOKALEMIA (8) Hyponatremia Code(s): E87.1 - HYPO-OSMOLALITY AND HYPONATREMIA (9) Leukocytosis Code(s): D72.829 - ELEVATED WHITE BLOOD CELL COUNT, UNSPECIFIED Qualifiers: Leukocytosis type: unspecified Qualified Code(s): D72.829 - Elevated white blood cell count, unspecified (10) Lung cancer Code(s): C34.90 - MALIGNANT NEOPLASM OF UNSP PART OF UNSP BRONCHUS OR LUNG Qualifiers: Laterality: right Lung location: upper lobe of lung Qualified Code(s): C34.11 - Malignant neoplasm of upper lobe, right bronchus or lung Assessment/Plan 1. Lethargy referable to hyponatremia and pre-renal acute on CKD improved 2. UTI 3. Right lung adenocarcinoma s/p resection 4. COPD 5. CAD angina pectoris 6. Systolic murmur consistent with mitral valve disease 7. HTN 8. Thrombocytopenia 9. Hypokalemia improved 10. Abnormal LFT PLAN: 1. Continue Toprol XL 12.5 BID, ASA 81 QD 2. Bronchodilator and O2 as needed 3. IVF, empiric antibiotic, monitor NA level and renal function and replete K as needed 4. DVT and GI prophylaxis 5. Work up as per GI service Further plans are to follow Andrew Randhawa MD
[2018-01-21] MEDS: INSULIN SLIDING SCALE (NOVOLOG) 1 VIAL SQ SCH (06:33)
[2018-01-21 08:09] LABS: ANION GAP 8 (8-16); BLOOD UREA NITROGEN 14 mg/dL (7-18); CALCIUM 7.1 mg/dL (8.5-10.1); CHLORIDE 105 mmol/L (98-107); CO2 27 mmol/L (21-32); GLUCOSE,RANDOM 190 mg/dL (74-106); POTASSIUM 4.3 mmol/L (3.5-5.1); SODIUM 140 mmol/L (136-145)
[2018-01-21 08:13] LABS: ALK PHOS 105 U/L (45-117); BILIRUBIN,DIRECT 0.2 mg/dL (0.0-0.2); BILIRUBIN,TOTAL 0.5 mg/dL (0.2-1.0); CREATININE 0.6 mg/dL (0.55-1.02); SGOT/AST 15 U/L (15-37); SGPT/ALT 54 U/L (12-78); TOT PROT 4.9 g/dl (6.4-8.2)
[2018-01-21 09:44] LABS: HEMATOCRIT 23.9 % (32.4-45.2); HEMOGLOBIN 8.2 GM/dL (10.7-15.3); MCH 31.8 pg (25.7-33.7); MCHC 34.3 g/dl (32.0-36.0); MEAN CELL VOLUME 92.8 fl (80-96); MEAN PLT VOLUME 7.3 fl (7.5-11.1); PLATELET COUNT 280 K/MM3 (134-434); RBC 2.57 M/mm3 (3.60-5.2); RDW 16.4 % (11.6-15.6); WHITE BLOOD COUNT 11.4 K/mm3 (4.0-10.0)
[2018-01-21] MEDS ORDERED: PT OWN MED DRAWER 7, Y5N ONE (10:16)
[2018-01-21] MEDS: ASPIRIN 81 MG CHEWABLE TABLETS PO SCH (10:18)
[2018-01-21] MEDS: metoPROLOL SUCCINATE 25 MG TAB.SR.24H (FP) PO SCH (10:18)
[2018-01-21] MEDS: CEFUROXIME AXETIL 500 MG TABLET PO SCH (10:18)
[2018-01-21] MEDS: LACTOBACILLUS ACIDOPHILUS 1 EACH TAB (FP) PO SCH (10:18)
[2018-01-21] MEDS: MULTIVITAMINS (DAILY MVI) TABLET (FP) PO SCH (10:19)
[2018-01-21] MEDS: PANTOPRAZOLE 20 MG TABLET (FP) PO SCH (10:19)
[2018-01-21 10:47] VITALS: BP 139/61; PULSE 81; TEMP 98.8
[2018-01-21 11:38] LABS: ANISOCYTOSIS 0; MACROCYTOSIS 1+; PLATELET ESTIMATE NORMAL
[2018-01-21 11:40] LABS: TOXIC GRANULATION 1+
--- NOTE | 2018-01-21 12:04 | PN ---
GI Progress Note Subjective: GI NOte: I have told Jo that her Hb is dropping and have advised her to undergo an EGD and colonoscopy to exclude an underlying neoplasm,varices, ulcer or other etiologies for her anemia and weakness. She adamantly refused and tells me that she is going home today. I also reminded her that the MRI raises the possibilities of hepatic and pancreatic neoplasms that require an EUS and/ or repeat imaging in 4 months. She tells me that she will make an appointment in our office to arrange the endoscopies and followup imaging. I again advised that the EGD and colonoscopy should be done before discharge but she refuses. I told her that it is likely that she will need to be readmitted for weakness related to progressing anemia due to GI bleeding. She again refused. - Objective Vital Signs: Vital Signs Temperature 98.8 F 01/21/18 10:00 Pulse Rate 81 01/21/18 10:00 Respiratory Rate 18 01/21/18 10:00 Blood Pressure 139/61 01/21/18 10:00 O2 Sat by Pulse Oximetry (%) 98 01/21/18 09:00 Laboratory Tests 01/18/18 01/18/18 01/20/18 08:00 08:00 07:00 WBC Hgb 8.5 L Plt Count Total Bilirubin 0.5 D 0.5 Direct Bilirubin 0.2 AST 57 H 24 ALT 143 H 81 H Alkaline Phosphatase 125 H 121 H 01/21/18 06:00 WBC 11.4 H Hgb 8.2 L Plt Count 280 Total Bilirubin Direct Bilirubin AST ALT Alkaline Phosphatase Constitutional: Anxious ...Auscultate: Yes: Normoactive Bowel Sounds ...Palpate: Yes: Soft, Other (nontender) Labs: CBC, BMP 01/21/18 06:00 01/21/18 06:00 INR, PTT INR 1.48 (0.82-1.09) H 01/20/18 07:00 Laboratory Tests 01/16/18 01/16/18 06:50 12:50 Iron 39 TIBC 140 L Iron Saturation 28 Ferritin 1333.607 H Laboratory Tests 01/21/18 01/21/18 06:00 06:00 Hepatitis A Ab Total Pending Hep Bs Antigen Pending Hep Bs Antibody Pending Hep B Core Total Ab Pending Hep C Ab Diagnostic Pending Problem List - Problems (1) Anemia Assessment/Plan: I am concerned that Jo has bleeding from portal gastropathy or varices related to alcoholic cirrhosis or from an underlying neoplasm either of which could account for her hypoalbuminemia. She adamantly refuses to have EGD and colonoscopy at this time. Would empirically treat with PPI. Code(s): D64.9 - ANEMIA, UNSPECIFIED Qualifiers: Anemia type: unspecified type Qualified Code(s): D64.9 - Anemia, unspecified (2) Pancreatic mass Assessment/Plan: Will refer for EUS EMA and a followup MRI if needed. Will order Ca 19.9. Code(s): K86.9 - DISEASE OF [place], UNSPECIFIED (3) Liver mass Assessment/Plan: Given her cirrhosis hepatoma is a distinct possibility. She was informed of the need for a repeat MRI in 4 months. AFP is pending. Alcohol abstinence advised. Code(s): R16.0 - HEPATOMEGALY, NOT ELSEWHERE CLASSIFIED (4) Heme positive stool Code(s): R19.5 - OTHER FECAL ABNORMALITIES (5) Hypoalbuminemia Assessment/Plan: Suspect alcoholic cirrhosis as the etiology as a residual of previous alcohol usage. Will order SPEP. Code(s): E88.09 - OTH DISORDERS OF PLASMA-PROTEIN METABOLISM, NEC
--- NOTE | 2018-01-21 12:15 | DS ---
Physical Examination Vital Signs: Vital Signs Temperature 98.8 F 01/21/18 10:00 Pulse Rate 81 01/21/18 10:00 Respiratory Rate 18 01/21/18 10:00 Blood Pressure 139/61 01/21/18 10:00 O2 Sat by Pulse Oximetry (%) 98 01/21/18 09:00 Constitutional: Yes: Well Nourished, No Distress Cardiovascular: Yes: WNL, Regular Rate and Rhythm, Murmur. No: JVD, Gallop, Rub Respiratory: Yes: WNL, Regular, CTA Bilaterally, Diminished Gastrointestinal: Yes: WNL, Normal Bowel Sounds, Soft. No: Distention, Tenderness Renal/: Yes: WNL Extremities: Yes: WNL Edema: No Neurological: Yes: WNL, Alert, Oriented Psychiatric: Yes: WNL, Alert, Oriented Labs: CBC, BMP 01/21/18 06:00 01/21/18 06:00 Discharge Summary Reason For Visit: ACUTE KIDNEY INJURY; HYPONATREMIA Current Active Problems CRUZ (acute kidney injury) (Acute) Abnormal liver enzymes (Acute) Acute hyperglycemia (Acute) Anemia (Acute) CAD (coronary artery disease) (Acute) COPD (chronic obstructive pulmonary disease) (Acute) Cholelithiasis (Acute) Chronic liver disease (Acute) DVT prophylaxis (Acute) Dementia (Acute) Encephalopathy (Acute) GERD (gastroesophageal reflux disease) (Acute) Generalized weakness (Acute) HTN (hypertension) (Acute) Heme positive stool (Acute) History of alcohol abuse (Acute) Hypoalbuminemia (Acute) Hypokalemia (Acute) Hypomagnesemia (Acute) Hyponatremia (Acute) Hypophosphatemia (Acute) Leukocytosis (Acute) Lung cancer (Acute) SIRS (systemic inflammatory response syndrome) (Acute) Sepsis (Acute) Transaminitis (Acute) UTI (urinary tract infection) (Acute) Hospital Course: is an 82 year old female pmh significant for Lung Ca s/p left lobe resection who is managed by Dr.Rosen peoples who came into the hospital with increased weakness/fatigue. Her last CT without changes. She was found to have severe hyponatremia, UTI and dehydration. Hyponatremia successfully treated and resolved with IVF. Nephrology consult appreciated. She was started on ceftriaxone for UTI, however she had elevation in lfts/wbcs/esr/crp since then.She's had a slow drop in hg/hct as well. ID was consulted and pt started on [id number]. Hematology, GI consulted. Heme occult positive, importance of egd/colonoscopy explained to pt but pt prefers to do this outpt. Abd MRI reveals cirrhotic changes, possible liver/pancreatic mass,pt advised to follow up with onc outpt to repeat imaging and to further evaluate. She's had elevations in her blood sugars, her HgA1c 7.4, metformin 500mg started, PCP aware. Today, she reports she is feeling great, ambulating without difficulty. Wbc/esr/lfts have trended down. Hg/hct stable. Pt denying any symptoms and reports she wants to go home. Pt is medically cleared to be discharged at this point as pt does not prefer further GI work up at this admission. Highly advises pt to follow up with GI/Heme-Oncology and PCP. Condition: Fair - Instructions Diet, Activity, Other Instructions: resume prev diet, maintain hydration ambulate as tolerated F/U with GI to do egd/colonoscopy f/u with oncology as directed. you will need a repeat abdominal scan to evaluate findings from CT here f/u with pcp in 7 days Your HgA1c here was 7.4 which is suggestive of diabetes. Metformin is started for you to take once a day, f/u w/ pcp for further management and follow up as directed continue antibiotic x 3 more days Referrals: Bernabe Parra MD [Primary Care Provider] - 1 Week Toño Owens MD [Staff Physician] - 2 Weeks (f/u abdominal CT/US) Sarwat Bennett MD [Staff Physician] - 2 Weeks (EGD/colonoscopy) Disposition: HOME - Home Medications Comprehensive Discharge Medication List: Ambulatory Orders Aspirin [ASA -] 81 mg PO DAILY #0 tab.chew 07/18/13 Metoprolol Succinate [Toprol XL -] 12.5 mg PO BID #0 tab.sr.24h 07/18/13 Multivitamin [Multivitamins] 1 each PO DAILY #0 capsule 07/18/13 Loratadine/Pseudoephedrine Sul [Claritin-D 24 Hour Tablet] 1 tab PO DAILY Alprazolam 0.5 mg PO DAILY PRN 01/13/18 Cefuroxime Axetil [Ceftin -] 500 mg PO BID 3 Days #6 tablet 01/21/18 Lactobacillus Acidophilus [Bacid -] 1 tab PO DAILY 3 Days #3 tab 01/21/18 metFORMIN XR [Glucophage Xr -] 500 mg PO DAILY 30 Days #30 tab.sr.24h 01/21/18
[2018-01-21 15:06] LABS: ALBUMIN 2.4 g/dl (3.4-5.0); ALK PHOS 122 U/L (45-117); BILIRUBIN,DIRECT < 0.2 mg/dL (0.0-0.2); BILIRUBIN,TOTAL 0.3 mg/dL (0.2-1.0); SGOT/AST 19 U/L (15-37); SGPT/ALT 64 U/L (12-78); TOT PROT 5.8 g/dl (6.4-8.2)
[2018-01-22 06:09] LABS: HBSAG SCREEN Negative (Negative); HEP B CORE AB, TOT Negative (Negative)
[2018-01-22 14:13] LABS: TRANSGLUTAMINASE IGA < 2 U/mL (0-3); TRANSGLUTAMINASE IGG < 2 U/mL (0-5)
[2018-01-24 08:06] LABS: ALPHA 2 MACROGLOBULINS,QN 241 mg/dL (110-276); ALT(SGPT)P5P 64 IU/L (0-40); CHOLESTEROL TOTAL 119 mg/dL (100-199); GGT= 53 IU/L (0-60); GLUCOSE SERUM 360 mg/dL (65-99); HEIGHT. 64 Inches (.); WEIGHT. 160 LBS (.)
== END 2018-01-21 14:05 | disposition home health service (06) | DRG 683 ==
LOC: JER 15:56 → JERBED 18:38 → J6S 20:42
PROVIDERS: ADMIT Internal Medicine; ATTEND Nurse Practitioner Family
DX: N17.9 Acute kidney failure, unspecified (principal); E87.1 Hypo-osmolality and hyponatremia; N39.0 Urinary tract infection, site not specified; I45.2 Bifascicular block; R65.10 Systemic inflammatory response syndrome (SIRS) of non-infectious origin without acute organ dysfunction; J44.9 Chronic obstructive pulmonary disease, unspecified; Z87.891 Personal history of nicotine dependence; E86.0 Dehydration; E87.8 Other disorders of electrolyte and fluid balance, not elsewhere classified; K21.9 Gastro-esophageal reflux disease without esophagitis; I25.10 Atherosclerotic heart disease of native coronary artery without angina pectoris; D72.829 Elevated white blood cell count, unspecified; Z85.118 Personal history of other malignant neoplasm of bronchus and lung; E87.6 Hypokalemia; F10.10 Alcohol abuse, uncomplicated; D64.9 Anemia, unspecified; D69.6 Thrombocytopenia, unspecified; I12.9 Hypertensive chronic kidney disease with stage 1 through stage 4 chronic kidney disease, or unspecified chronic kidney disease; N18.9 Chronic kidney disease, unspecified; E83.39 Other disorders of phosphorus metabolism; N28.1 Cyst of kidney, acquired; R33.8 Other retention of urine; I34.9 Nonrheumatic mitral valve disorder, unspecified; F03.90 Unspecified dementia, unspecified severity, without behavioral disturbance, psychotic disturbance, mood disturbance, and anxiety; R74.0 Nonspecific elevation of levels of transaminase and lactic acid dehydrogenase [LDH]; R73.9 Hyperglycemia, unspecified; K80.20 Calculus of gallbladder without cholecystitis without obstruction; E88.09 Other disorders of plasma-protein metabolism, not elsewhere classified; E83.42 Hypomagnesemia; K76.9 Liver disease, unspecified; R19.5 Other fecal abnormalities; K86.9 Disease of pancreas, unspecified; K70.30 Alcoholic cirrhosis of liver without ascites
CPT/HCPCS: 36415; 71045-TC-FY; 74183-TC; 76705-TC; 76775-TC; 76856-TC; 78226-TC; 80048; 80053; 80076; 81003; 81015; 82105; 82150; 82247; 82248; 82272; 82436; 82533; 82550; 82570; 82607; 82728; 82746; 82962; 83010; 83036; 83516; 83540; 83550; 83605; 83615; 83690; 83735; 83930; 83935; 84100; 84133; 84155; 84165; 84300; 84443; 84484; 85025; 85044; 85610; 85651; 85730; 86038; 86140; 86301; 86704; 86706; 86708; 87040; 87086; 87340; 93005; 93010; 94640; 94761; 97116-GP; 97162-GP; 99284-25; A9537; C1887; J1644; J7030; J7620

== ENCOUNTER 2018-07-28 08:57 | Day surgery (SDC) | payer OTHER, MEDICARE ==
[2018-07-28 11:36] VITALS: TEMP 97.7
[2018-07-28 13:44] VITALS: BP 141/61; PULSE 74
--- NOTE | 2018-07-29 16:06 | PATH ---
Cytology Non-Gynecological Report Patient Name: PRATIK BARRY [facility]. Rec. #: [id number] /Age/Gender: 1935 (Age: 83) / F Account: [id number] Location: U-ENDOSCOPY Taken: 07/28/2018 Received: 07/29/2018 Reported: 07/29/2018 Physicians: Alec Hastings M.D. Specimen(s) Received BILE DUCT BRUSH Clinical History Bile duct stricture, lung adenocarcinoma Final Diagnosis BILE DUCT BRUSHING FOR CYTOLOGY: SATISFACTORY FOR EVALUATION. NEGATIVE FOR MALIGNANT CELLS. DUCTAL CELLS WITH FOCAL ACUTE INFLAMMATION, REACTIVE AND DEGENERATIVE CHANGES. Comment: See concurrent biopsy ([id number]). Prior materials are noted. Electronically Signed Heavenly Brown M.D. Gross Description Received one slide fixed in 95% alcohol. Received brush in 20 cc of 95% alcohol. Two additional slides prepared and Pap stained.
--- NOTE | 2018-07-29 16:54 | PATH ---
Surgical Pathology Report Patient Name: PRATIK BARRY Med. Rec. #: [id number] /Age/Gender: 1935 (Age: 83) / F Account: [id number] Location: U-ENDOSCOPY Taken: 07/28/2018 Received: 07/28/2018 Reported: 07/29/2018 Physicians: Alec Hastings M.D. Specimen(s) Received A: BILE DUCT BX B: OLD BILE DUCT STENT Clinical History Obstruction bile duct s/p stent Final Diagnosis A. BILE DUCT, BIOPSY: BILE DUCT MUCOSA WITH FOCAL ACUTE INFLAMMATION AND REACTIVE CHANGES. B. BILE DUCT STENT, OLD, EXCHANGE/REMOVAL: BILE DUCT STENT. MACROSCOPIC DIAGNOSIS. Comment: See concurrent cytology ([id number]). Electronically Signed Heavenly Brown M.D. Gross Description A. Received in formalin, labeled "biopsy bile duct" are 2 cantrell, irregular portions of soft tissue measuring 0.2 and 0.4 cm. in greatest dimension. The specimens are submitted in toto in one cassette. B. Received fresh labeled "bile duct stent," is an 11 cm in length blue portion of tubing, consistent with a bile duct stent. No soft tissue is present. No sections are submitted, gross only. 07/28/2018 saudi07/28/2018
== END 2018-07-28 13:45 | disposition home or self-care (01) ==
LOC: JASU-ENDO 08:57
PROVIDERS: ATTEND Internal Medicine Gastroenterology
PROC: 0F798DZ Dilation of Common Bile Duct with Intraluminal Device, Via Natural or Artificial Opening Endoscopic (ICD-10-PCS; 2018-07-28)
PROC: 0FB98ZX Excision of Common Bile Duct, Via Natural or Artificial Opening Endoscopic, Diagnostic (ICD-10-PCS; 2018-07-28)
PROC: 0FPB8DZ Removal of Intraluminal Device from Hepatobiliary Duct, Via Natural or Artificial Opening Endoscopic (ICD-10-PCS; principal; 2018-07-28 10:30)
DX: K83.1 Obstruction of bile duct (principal)
CPT/HCPCS: 76000-TC-FY; 88104; 88300-TC; 88305-TC